=== PATIENT | female | born 1935 | race Caucasian/White ===

== ENCOUNTER 2021-09-07 07:50 | Inpatient (IN) ==
[2021-09-07] MEDS ORDERED: cefTRIAXone 1 GM VIAL IV ONE (08:27)
[2021-09-07] MEDS ORDERED: 0.9 % SODIUM CHLORIDE 1,000 ML IV ONE (08:27)
--- NOTE | 2021-09-07 08:27 | Emergency Department Note ---
Altered Mental Status HPI General Chief Complaint: Altered Mental Status Stated Complaint: possible UTI or septic hip Time Seen by Provider: 09/07/21 08:08 Source: EMS Mode of arrival: EMS Limitations: altered mental status and physical limitation History of Present Illness HPI Narrative: Narrative: 86 yo F w/ apparent h/o dementia, HTN, CKD, hypothyroidism p/w ALOC. She was sent here from [facility] w/ minimal report. It seems that her baseline is maybe mild confusion but o/w functional, but over the past few days she has had decreased responsiveness and decreased PO intake. Staff at the facility noted a wound on her L hip and also suspected a UTI. She was sent here for further evaluation. Pt herself will briefly answer some questions w/ yes/no, but cannot provide any meaningful Hx. Related Data Home Medications Medication Instructions Recorded Confirmed acetaminophen 325 mg tablet 650 mg PO Q4H PRN 09/07/21 09/07/21 amlodipine 5 mg tablet 5 mg PO QDAY 09/07/21 09/07/21 ascorbic acid (vitamin C) 500 mg 500 mg PO BID 09/07/21 09/07/21 tablet bisacodyl 10 mg rectal suppository 10 mg NC QDAY PRN 09/07/21 09/07/21 cranberry fruit 450 mg tablet 450 mg PO BID 09/07/21 09/07/21 (cranberry) dicyclomine 20 mg tablet 20 mg PO BID 09/07/21 09/07/21 diphenhydramine-zinc acetate 2 1 applic TOPICAL BID PRN 09/07/21 09/07/21 %-0.1 % topical solution famotidine 20 mg tablet 20 mg PO QDAY 09/07/21 09/07/21 ferrous sulfate 325 mg (65 mg 325 mg PO TID 09/07/21 09/07/21 iron) tablet galantamine 4 mg tablet 4 mg PO DAILY 09/07/21 09/07/21 hydroxyzine HCl 25 mg tablet 25 mg PO BID 09/07/21 09/07/21 latanoprost 0.005 % eye drops 1 drp OPHTHALMIC (EYE) QPM 09/07/21 09/07/21 levothyroxine 50 mcg tablet 50 mcg PO QDAY 09/07/21 09/07/21 miconazole nitrate 2 % topical 1 applic TOPICAL HS 09/07/21 09/07/21 powder multivitamin with minerals-folic 1 tab PO DAILY 09/07/21 09/07/21 acid 0.4 mg tablet sodium phosphates 19 gram-7 118 ml NC ONCE PRN 09/07/21 09/07/21 gram/118 mL enema (Enema) zinc sulfate 50 mg zinc (220 mg) 50 mg PO DAILY 09/07/21 09/07/21 tablet Allergies Allergy/AdvReac Type Severity Reaction Status Date / Time No Known Drug Allergies Allergy Verified 09/07/21 08:09 Review of Systems ROS ROS Narrative: Narrative: Limitations: ROS unobtainable due to patients medical condition [facility] Narrative Patient History Narrative: Narrative: Per facility records, HTN, hypothyroidism, CKD, dementia. Pt is DNR but not comfort care. Medical/Surgical/Family History All Active Problems (Updated 09/07/21 @ 12:16 by Miki Pinzon MD) Metabolic acidosis (Acute) Hyperkalemia (Acute) Hypernatremia (Acute) Acute kidney injury with acute tubular necrosis (Acute) Acute delirium (Acute) Acute renal failure (ARF) (Acute) Acute hypernatremia (Acute) Acute hyperkalemia (Acute) Acute UTI (Acute) Social History Smoking Status: Unknown if ever smoked Exam Narrative Narrative: Narrative: General Limitations: altered mental status and physical limitation General appearance: Present alert and in no apparent distress Head Head: Present atraumatic and normocephalic Eye Eye: Present normal appearance and PERRL ENT ENT: Present other (does not really follow commands to open mouth and stick out tongue but what I can see shows very dry MM) Neck Neck: Present normal inspection Chest Chest: Present normal inspection and symmetric chest wall rise Respiratory Respiratory: Present normal lung sounds bilaterally; Absent accessory muscle use or decreased breath sounds Cardiovascular Cardiovascular: Present regular rate, normal rhythm, +S1, +S2 and other (2+ B/L DP and radial pulses); Absent systolic murmur or diastolic murmur Adbominal Abdominal: Present soft and normal bowel sounds; Absent distention or tenderness External: Present normal external exam Extremities Extremities: Present other (L hip w/ 4cm diameter skin tear w/ surrounding blanching erythema w/o warmth, TTP. Does keep the LLE held in flexion at the hip and knee, resists attempts to move in any direction. Extremities o/w unremarkable. ) Neurological Neurological: Present alert and other (oriented to person, place, but not year. Responds only briefly and occasionally to questions. Does follow commands to squeeze fingers and wiggle toes B/L. ) Skin Skin: Present warm (WNL), dry and other (hip lesion as noted in extremity section o/w no rashes) Course Vital Signs Vital signs: Vital Signs Temperature 99.2 F H 09/07/21 07:59 Pulse Rate 77 09/07/21 07:59 Respiratory Rate 20 09/07/21 07:59 Blood Pressure 107/59 09/07/21 07:59 Pulse Oximetry (%) 100 09/07/21 07:59 Temperature 99.2 F H 09/07/21 07:59 Pulse Rate 92 H 09/07/21 12:32 Respiratory Rate 16 09/07/21 12:32 Blood Pressure 114/43 09/07/21 12:32 Pulse Oximetry (%) 96 09/07/21 12:32 MDM MDM Narrative Medical decision making narrative: Narrative: 86 yo F w/ apparent h/o dementia, HTN, CKD, p/w ALOC. DDx - CVA, FLEXIBLE SHAFT WINDER infection, sepsis, UTI, septic arthritis, metabolic/electrolyte d/o, endocrine d/o, medication/toxin effect Pt presents w/ confusion but no focal deficits, stable vitals, in NAD. CVA was unlikely and CT head was not required. My main concern was infectious and I started a broad W/U for this. While doing so I started her on IVF and abx. She was clearly dehydrated and thus IVF were required. Her labs did not show a serious leukocytosis or L shift. At time of disposition lactate was still pending for unclear reasons. Her UA was grossly positive and this was c/w her presentation. I did not feel that her hip skin tear was at all likely to represent septic arthritis, and did not feel that FLEXIBLE SHAFT WINDER infection was likely. TSH/T4 were WNL and there was no clear evidence of a medication or toxin effect. The main issue was her CMP, which showed Na 161, K 6.1, BUN 90 and Cr 4.5. This was c/w acute renal failure d/t pre-renal HARRIET. There were no assoc'd EKG changes assoc'd w/ the hyperkalemia. I considered measures such as calcium, D50, insulin, etc but w/ such a mild elevation above 6 and no EKG changes these were not indicated. I d/w Dr Pinzon who felt that dialysis would be indicated if the pt wishes for aggressive measures, and if not agrees w/ plan for IVF and IV abx. He and I had an extensive d/w the pts family at the bedside and they stated that pt would not want HD or other aggressive measures. She was not full comfort care however, she would want IVF and IV abx. Thus we all agreed on admission here and pt was accepted by the hospitalist. Lab Data Result diagrams: 09/07/21 08:20 09/07/21 08:20 Labs: Lab Results 09/07/21 09/07/21 09/07/21 Range/Units 08:20 08:20 09:40 WBC 10.7 (4.5-11.0) K/mcL RBC 3.55 L (3.59-5.38) M/mcL Hgb 10.7 L (11.2-15.7) g/dL Hct 36.0 (34.1-44.9) % POC Hct MCV 101.4 H (80.0-100.0) fL MCH 30.1 (26.0-34.0) pg MCHC 29.7 L (31.0-36.0) g/dL RDW 15.1 H (11.5-14.5) % Plt Count 341 (140-440) K/mcL MPV 9.8 (7.4-10.4) fL Neut % (Auto) 73.1 (38.0-78.0) % Lymph % (Auto) 15.4 L (15.5-49.0) % [place] % (Auto) 5.8 (1.0-12.0) % Eos % (Auto) 5.3 (0.0-7.0) % Baso % (Auto) 0.4 (0.0-2.0) % Lymph # (Auto) 1.65 (1.50-4.80) K/mcL [place] # (Auto) 0.62 (0.10-0.90) K/mcL Eos # (Auto) 0.57 (0.00-0.70) K/mcL Baso # (Auto) 0.04 (0.00-0.30) K/mcL Absolute Neutrophils 7.85 (1.80-8.00) K/mcL POC Sodium Sodium 161 H* (133-145) mmol/L POC Potassium Potassium 6.2 H* (3.3-5.1) mmol/L Chloride 132 H (96-108) mmol/L Carbon Dioxide 17 L (22-30) mmol/L POC Total CO2 Anion Gap 12.0 (8.0-16.0) POC BUN BUN 90 H (8-23) mg/dL Creatinine 4.5 H (0.6-1.1) mg/dL POC Creatinine GFR Calculation 8 Glucose 85 (70-105) mg/dL POC Glucose Calcium 8.8 (8.6-10.4) mg/dL POC WB Ioniz Calcium Total Bilirubin 0.2 (0.1-1.0) mg/dL AST 17 (<32) U/L ALT 11 (<40) U/L Alkaline Phosphatase 150 H (39-117) U/L Total Protein 7.0 (5.9-8.4) gm/dL Albumin 3.3 (3.2-5.2) gm/dL Globulin 3.7 (2.2-3.7) gm/dL Albumin/Globulin Ratio 0.9 L (1.0-2.3) TSH 1.00 (0.27-5.01) uIU/mL Thyroxine (T4) 4.5 L (5.0-12.0) ug/dl Urine Color Urine Appearance (Clear) Urine pH (5.0-9.0) Ur Specific [place] (1.000-1.035) Urine Protein (Negative) mg/dL Urine Glucose (UA) (Negative) mg/dL Urine Ketones (Negative) mg/dL Urine Occult Blood (Negative) mg/dL Urine Nitrate (Negative) Urine Bilirubin (Negative) mg/dL Urine Urobilinogen mg/dL Ur Leukocyte Esterase (Negative) /uL Urine RBC (0-3) /hpf Urine WBC (0-4) /hpf Ur Squamous Epith Cells (0-4) /hpf Ur Transition Epith Cell (0-2) /hpf Urine Bacteria (0) /hpf Urine Mucus (None) /hpf Ur Culture Indicated? Urine Opiates Screen None detected Ur Opiates Confirm TNP Ur Oxycodone Screen None detected Urine Methadone Screen None detected Ur Methadone Confirm TNP Ur Barbiturates Screen None detected Ur Barbiturate Confirm TNP Ur Phencyclidine Scrn None detected Urine PCP Confirm TNP Ur Amphetamines Screen None detected U Amphetamines Confirm TNP U Benzodiazepines Scrn None detected U Benzodiazepine Confm TNP Urine Cocaine Screen None detected Urine Cocaine Confirm TNP U Cannabinoids Confirm TNP U Marijuana (THC) Screen None detected 09/07/21 09/07/21 Range/Units 09:40 12:24 WBC (4.5-11.0) K/mcL RBC (3.59-5.38) M/mcL Hgb (11.2-15.7) g/dL Hct (34.1-44.9) % POC Hct TNP MCV (80.0-100.0) fL MCH (26.0-34.0) pg MCHC (31.0-36.0) g/dL RDW (11.5-14.5) % Plt Count (140-440) K/mcL MPV (7.4-10.4) fL Neut % (Auto) (38.0-78.0) % Lymph % (Auto) (15.5-49.0) % [place] % (Auto) (1.0-12.0) % Eos % (Auto) (0.0-7.0) % Baso % (Auto) (0.0-2.0) % Lymph # (Auto) (1.50-4.80) K/mcL [place] # (Auto) (0.10-0.90) K/mcL Eos # (Auto) (0.00-0.70) K/mcL Baso # (Auto) (0.00-0.30) K/mcL Absolute Neutrophils (1.80-8.00) K/mcL POC Sodium TNP Sodium (133-145) mmol/L POC Potassium TNP Potassium (3.3-5.1) mmol/L Chloride (96-108) mmol/L Carbon Dioxide (22-30) mmol/L POC Total CO2 TNP Anion Gap (8.0-16.0) POC BUN TNP BUN (8-23) mg/dL Creatinine (0.6-1.1) mg/dL POC Creatinine TNP GFR Calculation Glucose (70-105) mg/dL POC Glucose TNP Calcium (8.6-10.4) mg/dL POC WB Ioniz Calcium TNP Total Bilirubin (0.1-1.0) mg/dL AST (<32) U/L ALT (<40) U/L Alkaline Phosphatase (39-117) U/L Total Protein (5.9-8.4) gm/dL Albumin (3.2-5.2) gm/dL Globulin (2.2-3.7) gm/dL Albumin/Globulin Ratio (1.0-2.3) TSH (0.27-5.01) uIU/mL Thyroxine (T4) (5.0-12.0) ug/dl Urine Color Yellow Urine Appearance Turbid A (Clear) Urine pH 7.0 (5.0-9.0) Ur Specific [place] 1.013 (1.000-1.035) Urine Protein 100 A (Negative) mg/dL Urine Glucose (UA) Negative (Negative) mg/dL Urine Ketones Negative (Negative) mg/dL Urine Occult Blood 0.03 (Negative) mg/dL Urine Nitrate Negative (Negative) Urine Bilirubin Negative (Negative) mg/dL Urine Urobilinogen Negative mg/dL Ur Leukocyte Esterase 500 A (Negative) /uL Urine RBC 89 H (0-3) /hpf Urine WBC > 182 H (0-4) /hpf Ur Squamous Epith Cells 0 (0-4) /hpf Ur Transition Epith Cell 1 (0-2) /hpf Urine Bacteria Few A (0) /hpf Urine Mucus Few A (None) /hpf Ur Culture Indicated? yes Urine Opiates Screen Ur Opiates Confirm Ur Oxycodone Screen Urine Methadone Screen Ur Methadone Confirm Ur Barbiturates Screen Ur Barbiturate Confirm Ur Phencyclidine Scrn Urine PCP Confirm Ur Amphetamines Screen U Amphetamines Confirm U Benzodiazepines Scrn U Benzodiazepine Confm Urine Cocaine Screen Urine Cocaine Confirm U Cannabinoids Confirm U Marijuana (THC) Screen ED POC Tests ED POC Tests: SUNG - SARS Antigen Negative EKG Data EKG #1: EKG attestation: Yes I reviewed and interpreted this EKG. EKG results narrative: Sinus rate of 78 Normal NC, QRS, QT/QTc intervals No STEMI, DeWinters, Wellens CC TIME Critical Care Time Attestation: Approximately 35 minutes of critical care time was used in order to assess and manage the high probability of imminent or life threatening deterioration to CVS, renal systems which required my highest level of preparedness and interventions with frequent patient assessments. This time is excluding time spent on separately billable procedures. Discharge Plan Patient/Caregiver Discharge Instructions Pt seen by HEATING UNIT MECHANIC/PA only: No Clinical Impression: Acute delirium, Acute renal failure (ARF), Acute hypernatremia, Acute hyperkalemia, Acute UTI Patient Disposition: Xfer As Inpt ([facility]) Condition: Serious Follow up with: Gianluca Rivera [Primary Care Provider] - Prescriptions: No Action latanoprost 0.005 % Drops 1 drp OPHTHALMIC (EYE) QPM 0RF acetaminophen 325 mg Tablet 650 mg PO Q4H PRN (Reason: Pain) 0RF miconazole nitrate 2 % Powder 1 applic TOPICAL HS 0RF galantamine 4 mg Tablet 4 mg PO DAILY 0RF Rx Instructions: administer with AM and PM meals amlodipine 5 mg Tablet 5 mg PO QDAY 0RF zinc sulfate 50 mg zinc (220 mg) Tablet 50 mg PO DAILY 0RF famotidine 20 mg Tablet 20 mg PO QDAY 0RF ascorbic acid (vitamin C) 500 mg Tablet 500 mg PO BID 0RF dicyclomine 20 mg Tablet 20 mg PO BID 0RF levothyroxine 50 mcg Tablet 50 mcg PO QDAY 0RF bisacodyl 10 mg Suppository 10 mg NC QDAY PRN (Reason: Constipation) 0RF ferrous sulfate 325 mg (65 mg iron) Tablet 325 mg PO TID 0RF Enema 19-7 gram/118 mL Enema 118 ml NC ONCE PRN (Reason: Constipation) 0RF hydroxyzine HCl 25 mg Tablet 25 mg PO BID 0RF Benadryl Itch Relief 2-0.1 % Solution 1 applic TOPICAL BID PRN (Reason: Itching) 0RF multivit with min-folic acid [Adult One Daily Multivitamin] 0.4 mg Tablet 1 tab PO DAILY 0RF cranberry 450 mg Tablet 450 mg PO BID 0RF Rx Instructions: administer with a meal
[2021-09-07 09:17] LABS: Basophils # (Auto) 0.04 K/mcL (0.00-0.30); Basophils % (Auto) 0.4 % (0.0-2.0); Eosinophils # (Auto) 0.57 K/mcL (0.00-0.70); Eosinophils % (Auto) 5.3 % (0.0-7.0); Hemoglobin 10.7 g/dL (11.2-15.7); Lymphocytes # (Auto) 1.65 K/mcL (1.50-4.80); Lymphocytes % (Auto) 15.4 % (15.5-49.0); Mean Cell Volume 101.4 fL (80.0-100.0); Mean Corpuscular HGB Conc 29.7 g/dL (31.0-36.0); Mean Platelet Volume 9.8 fL (7.4-10.4); Monocytes # (Auto) 0.62 K/mcL (0.10-0.90); Monocytes % (Auto) 5.8 % (1.0-12.0); Neutrophils % (Auto) 73.1 % (38.0-78.0); Platelet Count 341 K/mcL (140-440); RBC 3.55 M/mcL (3.59-5.38); Red Cell Distribution Width 15.1 % (11.5-14.5); WBC 10.7 K/mcL (4.5-11.0)
[2021-09-07 09:54] LABS: T4 (Thyroxine) 4.5 ug/dl (5.0-12.0)
[2021-09-07 10:01] LABS: ALT/SGPT 11 U/L (<40); AST/SGOT 17 U/L (<32); Albumin 3.3 gm/dL (3.2-5.2); Albumin/Globulin Ratio 0.9 (1.0-2.3); Alkaline Phosphatase 150 U/L (39-117); Bilirubin,Total 0.2 mg/dL (0.1-1.0); Blood Urea Nitrogen 90 mg/dL (8-23); Calcium 8.8 mg/dL (8.6-10.4); Carbon Dioxide 17 mmol/L (22-30); Chloride 132 mmol/L (96-108); Globulin 3.7 gm/dL (2.2-3.7); Glomerular Filtration Rate 8; Glucose 85 mg/dL (70-105)
[2021-09-07 10:34] LABS: Appearance,Urine TURBID (Clear); Bacteria,Urine FEW /hpf (0); Bilirubin,Urine Negative (Negative); Color,Urine YELLOW; Culture Indicated,Urine yes; Glucose,Urine (UA) Negative (Negative); Ketones,Urine Negative (Negative); Leukocyte Esterase,Urine 500 /uL (Negative); Mucus,Urine FEW /hpf; Nitrate,Urine Negative (Negative); Protein,Urine 100 mg/dL (Negative); Specific Gravity,Urine 1.013 (1.000-1.035); Urine Blood 0.03 mg/dL (Negative); Urine RBC 89 /hpf (0-3); Urine Squamous Epithelial Cell 0 /hpf (0-4); Urine Transitional Epi Cells 1 /hpf (0-2); Urine WBC > 182 /hpf (0-4); Urobilinogen,Urine Negative
[2021-09-07 11:24] LABS: Amphetamine Screen,Urine None detected; Barbiturate Screen,Urine None detected; Benzodiazepines Screen,Urine None detected; Cannabinoid Screen,Urine None detected; Cocaine Screen,Urine None detected; Opiate Screen,Urine None detected; Oxycodone, Urine Screen None detected; Phencyclidine Screen,Urine None detected
[2021-09-07] MEDS ORDERED: DEXTROSE 5% IN WATER 1,000 ML IV SCH ×2 (12:00→17:01)
--- NOTE | 2021-09-07 12:12 | Internal Med History&Physical ---
HPI History of Present Illness Patient information: Note initiated : 09/07/21 at 12:05 pm Service Date, if different from initiated Date: [] Patient: Marie Pinon a 86 y/o F admitted on for Possible UTI or Septic Hip. Chief Complaint: [] History of present illness: Ms. Pinon is a 86 year old F Patient with a history of Alzheimer's dementia advanced brought in from [facility]. History is obtained from chart as unable to gather history from patient given her dementia and current state. She was brought in for decreased level of consciousness over the past few days. In the ED she was worked up she is found to have a sodium of 161 and potassium of 6.2 without any EKG changes. Her very hyperchloremic. BUN is 98 creatinine 4.5. He also was diagnosed with a UTI. Case discussed with talent acquisition sourcer regarding her case is stated could be possible that she could need dialysis. This was discussed with family who stated patient is a DNR and that she would not want dialysis. Patient will be treated at [facility] and if she declines her renal function does not improve likely transition to comfort care. Review of Systems: Unable obtain due to patient's advanced Alzheimer's [facility] All Active Problems (Updated 09/07/21 @ 12:16 by Miki Pinzon MD) Metabolic acidosis (Acute) Hyperkalemia (Acute) Hypernatremia (Acute) Acute kidney injury with acute tubular necrosis (Acute) Acute delirium (Acute) Acute renal failure (ARF) (Acute) Acute hypernatremia (Acute) Acute hyperkalemia (Acute) Acute UTI (Acute) MEDS/ALLERGIES Home Medications and Allergies Allergies Allergy/AdvReac Type Severity Reaction Status Date / Time No Known Drug Allergies Allergy Verified 09/07/21 08:09 EXAM Constitutional Vitals: Temp Pulse Resp BP Pulse Ox 99.2 F H 80 17 112/67 97 09/07/21 07:59 09/07/21 11:31 09/07/21 11:31 09/07/21 11:31 09/07/21 11:31 Exam: General: Alert, Awake, No acute Distress Eyes/N/T: EOMI, PERRL, dry MM Head/Neck: neck supple, normocephalic atraumatic CV: RRR, No murmurs, normal s1/s2 Pulm: Clear b/l, no wheezing/rhonchi/rales Abd: soft, nontender, +BS x4 Ext: no clubbing/cyanosis/edema Neuro: Alert, moves all extremities, does not follow commands thoroughly obtain neuro exam. Skin: warm/dry DATA Data Completed and Pending Labs: Labs from last 24 hours 09/07/21 09/07/21 09/07/21 09:40 09:40 08:20 WBC RBC Hgb Hct MCV MCH MCHC RDW Plt Count MPV Neut % (Auto) Lymph % (Auto) [place] % (Auto) Eos % (Auto) Baso % (Auto) Lymph # (Auto) [place] # (Auto) Eos # (Auto) Baso # (Auto) Absolute Neutrophils VBG Lactic Acid Pending Sodium 161 H* Potassium 6.2 H* Chloride 132 H Carbon Dioxide 17 L Anion Gap 12.0 BUN 90 H Creatinine 4.5 H GFR Calculation 8 Glucose 85 Calcium 8.8 Total Bilirubin 0.2 AST 17 ALT 11 Alkaline Phosphatase 150 H Total Protein 7.0 Albumin 3.3 Globulin 3.7 Albumin/Globulin Ratio 0.9 L TSH 1.00 Thyroxine (T4) 4.5 L Urine Color Yellow Urine Appearance Turbid A Urine pH 7.0 Ur Specific [place] 1.013 Urine Protein 100 A Urine Glucose (UA) Negative Urine Ketones Negative Urine Occult Blood 0.03 Urine Nitrate Negative Urine Bilirubin Negative Urine Urobilinogen Negative Ur Leukocyte Esterase 500 A Urine RBC 89 H Urine WBC > 182 H Ur Squamous Epith Cells 0 Ur Transition Epith Cell 1 Urine Bacteria Few A Urine Mucus Few A Ur Culture Indicated? yes Urine Opiates Screen None detected Ur Opiates Confirm TNP Ur Oxycodone Screen None detected Urine Methadone Screen None detected Ur Methadone Confirm TNP Ur Barbiturates Screen None detected Ur Barbiturate Confirm TNP Ur Phencyclidine Scrn None detected Urine PCP Confirm TNP Ur Amphetamines Screen None detected U Amphetamines Confirm TNP U Benzodiazepines Scrn None detected U Benzodiazepine Confm TNP Urine Cocaine Screen None detected Urine Cocaine Confirm TNP U Cannabinoids Confirm TNP U Marijuana (THC) Screen None detected 09/07/21 08:20 WBC 10.7 RBC 3.55 L Hgb 10.7 L Hct 36.0 MCV 101.4 H MCH 30.1 MCHC 29.7 L RDW 15.1 H Plt Count 341 MPV 9.8 Neut % (Auto) 73.1 Lymph % (Auto) 15.4 L [place] % (Auto) 5.8 Eos % (Auto) 5.3 Baso % (Auto) 0.4 Lymph # (Auto) 1.65 [place] # (Auto) 0.62 Eos # (Auto) 0.57 Baso # (Auto) 0.04 Absolute Neutrophils 7.85 VBG Lactic Acid Sodium Potassium Chloride Carbon Dioxide Anion Gap BUN Creatinine GFR Calculation Glucose Calcium Total Bilirubin AST ALT Alkaline Phosphatase Total Protein Albumin Globulin Albumin/Globulin Ratio TSH Thyroxine (T4) Urine Color Urine Appearance Urine pH Ur Specific [place] Urine Protein Urine Glucose (UA) Urine Ketones Urine Occult Blood Urine Nitrate Urine Bilirubin Urine Urobilinogen Ur Leukocyte Esterase Urine RBC Urine WBC Ur Squamous Epith Cells Ur Transition Epith Cell Urine Bacteria Urine Mucus Ur Culture Indicated? Urine Opiates Screen Ur Opiates Confirm Ur Oxycodone Screen Urine Methadone Screen Ur Methadone Confirm Ur Barbiturates Screen Ur Barbiturate Confirm Ur Phencyclidine Scrn Urine PCP Confirm Ur Amphetamines Screen U Amphetamines Confirm U Benzodiazepines Scrn U Benzodiazepine Confm Urine Cocaine Screen Urine Cocaine Confirm U Cannabinoids Confirm U Marijuana (THC) Screen A/P Narrative A/P Narrative: A: *Dehydration/hypernatremia(likely chronic,>48hrs)/hyperchloremia: -water deficit 2.7 *Volume depletion: *Hyperkalemia *HARRIET on CKD IV: *UTI: *Encephalopathy: 2/2 above, multifactorial superimposed on underlying dementia *Alzheimer's dementia, advanced: *Anemia, chronic: *HTN: *Hypothyroidism: *GERD: *Goals of care: P: -D5W, goal correction 10mEq per 24hrs -serial chemistry -monitor UOP -f/u renal fxn -Rocephin pending - -PT/OT -Medication reconciliation -ppx: Heparin DNR Time Spent With Patient Time: Total time spent is greater than 50% in coordination of care (as documented) at patient's floor/unit and/or counseling patient:
--- NOTE | 2021-09-07 12:21 | Nephrology Consult Note ---
HPI Data of Consult Patient: new to practice Consult date: 09/07/21 Requesting physician: Mejia Pierre Primary Care Provider: Gianluca Rivera Consult Narrative Chief complaint: Altered mental status Reason for consult: Acute kidney injury History of present illness: Marie Pinon is a 86-year-old female with dementia, hypertension, chronic kidney disease, hypothyroidism presented to [facility] ED from [facility] on 09/07/20 for worsening mental status. Baseline serum creatinine: Not available. Nephrology consultation was requested for acute kidney injury. cc:: CC: Review of Systems ROS unobtainable: due to mental status PFSH PFSH All Active Problems (Updated 09/07/21 @ 12:16 by Miki Pinzon MD) Metabolic acidosis (Acute) Hyperkalemia (Acute) Hypernatremia (Acute) Acute kidney injury with acute tubular necrosis (Acute) Acute delirium (Acute) Acute renal failure (ARF) (Acute) Acute hypernatremia (Acute) Acute hyperkalemia (Acute) Acute UTI (Acute) MEDS/ALLERGIES Home Medications and Allergies Home Medications Medication Instructions Recorded Confirmed Type acetaminophen 325 mg tablet 650 mg PO Q4H PRN 09/07/21 09/07/21 History amlodipine 5 mg tablet 5 mg PO QDAY 09/07/21 09/07/21 History ascorbic acid (vitamin C) 500 mg 500 mg PO BID 09/07/21 09/07/21 History tablet bisacodyl 10 mg rectal suppository 10 mg VA QDAY PRN 09/07/21 09/07/21 History cranberry fruit 450 mg tablet 450 mg PO BID 09/07/21 09/07/21 History (cranberry) dicyclomine 20 mg tablet 20 mg PO BID 09/07/21 09/07/21 History diphenhydramine-zinc acetate 2 1 applic TOPICAL BID PRN 09/07/21 09/07/21 History %-0.1 % topical solution famotidine 20 mg tablet 20 mg PO QDAY 09/07/21 09/07/21 History ferrous sulfate 325 mg (65 mg 325 mg PO TID 09/07/21 09/07/21 History iron) tablet galantamine 4 mg tablet 4 mg PO DAILY 09/07/21 09/07/21 History hydroxyzine HCl 25 mg tablet 25 mg PO BID 09/07/21 09/07/21 History latanoprost 0.005 % eye drops 1 drp OPHTHALMIC (EYE) QPM 09/07/21 09/07/21 History levothyroxine 50 mcg tablet 50 mcg PO QDAY 09/07/21 09/07/21 History miconazole nitrate 2 % topical 1 applic TOPICAL HS 09/07/21 09/07/21 History powder multivitamin with minerals-folic 1 tab PO DAILY 09/07/21 09/07/21 History acid 0.4 mg tablet sodium phosphates 19 gram-7 118 ml VA ONCE PRN 09/07/21 09/07/21 History gram/118 mL enema (Enema) zinc sulfate 50 mg zinc (220 mg) 50 mg PO DAILY 09/07/21 09/07/21 History tablet Allergies Allergy/AdvReac Type Severity Reaction Status Date / Time No Known Drug Allergies Allergy Verified 09/07/21 08:09 Physical Examination Vital Signs Vital signs: Temp Pulse Resp BP Pulse Ox 99.2 F H 80 17 112/67 97 09/07/21 07:59 09/07/21 11:31 09/07/21 11:31 09/07/21 11:31 09/07/21 11:31 General Appearance General appearance: chronically ill, fatigue and frail EENT EENT: mucous membranes dry Neck Neck: no JVD Respiratory Respiratory: clear Cardiovascular Cardiology: no edema and regular rhythm Gastrointestinal Gastrointestinal: no tenderness Integumentary Integumentary: cool/clammy Neurologic Neurologic: confused Results Lab Results Result Diagrams: 09/07/21 08:20 09/07/21 08:20 Lab results: Most recent lab results Calcium 8.8 mg/dL (8.6-10.4) 09/07/21 08:20 A/P Assessment and plan (1) Acute kidney injury with acute tubular necrosis: Assessment and plan: Marie Pinon is a 86-year-old female with dementia, hypertension, chronic kidney disease, hypothyroidism presented to [facility] ED from [facility] on 09/07/20 for worsening mental status. Baseline serum creatinine: Not available. Nephrology consultation was requested for acute kidney injury. Acute kidney injury, likely acute tubular necrosis associated with prolonged dehydration and acute cystitis with initial hyperkalemia, metabolic acidosis and hypernatremia, present on arrival. Hypernatremia, onset likely more than 48 hours, severe. Work up: Urinalysis on 09/07/20: Yellow, turbid, pH 7.0, SG 1.013, protein 100, blood 0.03, leukocyte esterase 500, urine WBC >182. Treatment: 0.5 L Normal Saline administered in ED. Prognosis is poor. This has been discussed with the family. Recommendations/Plan: Acute hemodialysis has been discussed with his son. This requires transfer to a hospital with inpatient hemodialysis. His son and granddaughter did not want hemodialysis, transfer or invasive procedures. IV fluids and antibiotics will be administered. Comfort care will be considered based on the progress. The goal of water repletion in patients with chronic hypernatremia is to lower the serum sodium by approximately 10 mEq/L in 24 hours but to avoid correcting the serum sodium by more than 12 mEq/L in 24 hours Status: Acute (2) Hypernatremia: Status: Acute (3) Hyperkalemia: Status: Acute (4) Metabolic acidosis: Status: Acute Time Spent With Patient Time: Total time spent is greater than 50% in coordination of care (as documented) at patient's floor/unit and/or counseling patient:
--- NOTE | 2021-09-07 12:49 | EKG ---
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
[2021-09-07 13:14] LABS: POC Blood Urea Nitrogen 90 mg/dL (6-20); POC CO2 19 mmol/L (22-30); POC Calcium, Ionized 1.19 mmEq/L (1.16-1.32); POC Chloride 139 mEq/L (96-108); POC Creatinine 4.8 mg/dL (0.6-1.2); POC Glucose, Random 88 mg/dL (70-105); POC Hematocrit 29 % (36-48); POC Potassium 5.6 mEql/L (3.3-5.1); POC Sodium 166 mEq/L (133-145)
[2021-09-07 13:32] LABS: Blood Urea Nitrogen 77 mg/dL (8-23); Calcium 7.4 mg/dL (8.6-10.4); Carbon Dioxide 15 mmol/L (22-30); Chloride 133 mmol/L (96-108); Glomerular Filtration Rate 9; Glucose 84 mg/dL (70-105)
[2021-09-07 14:04] LABS: Blood Urea Nitrogen 82 mg/dL (8-23); Calcium 7.8 mg/dL (8.6-10.4); Carbon Dioxide 17 mmol/L (22-30); Chloride 134 mmol/L (96-108); Glomerular Filtration Rate 9; Glucose 89 mg/dL (70-105)
[2021-09-07] MEDS ORDERED: POTASSIUM CHLORIDE 20 MEQ TABLET PO PRN ×2 (15:23)
[2021-09-07] MEDS ORDERED: MAGNESIUM SULFATE 2 GM/50 ML BAG IV PRN (15:23)
[2021-09-07] MEDS ORDERED: IPRATROPIUM/ALBUTEROL 3 ML AMPUL.NEB NEB PRN (15:23)
[2021-09-07] MEDS ORDERED: cefTRIAXone 1 GM in DEXTROSE 5% IN WATER 50 ML IV SCH (15:23)
[2021-09-07] MEDS ORDERED: POTASSIUM CHLORIDE 40 MEQ in DEXTROSE 5% IN WATER 500 ML IV PRN (15:23)
[2021-09-07] MEDS ORDERED: POLYETHYLENE GLYCOL 3350 17 GM PACKET PO PRN (15:23)
[2021-09-07] MEDS ORDERED: ONDANSETRON 4 MG/2 ML VIAL IV PRN (15:23)
[2021-09-07] MEDS ORDERED: SENNOSIDES 1 TABLET PO PRN (15:23)
[2021-09-07] MEDS: 0.9 % SODIUM CHLORIDE 10 ML SYRINGE IV SCH ×2 (15:48→21:33)
[2021-09-07 16:40] LABS: POC Blood Urea Nitrogen 91 mg/dL (6-20); POC CO2 20 mmol/L (22-30); POC Chloride 138 mEq/L (96-108); POC Creatinine 4.8 mg/dL (0.6-1.2); POC Glucose, Random 96 mg/dL (70-105); POC Hematocrit 32 % (36-48); POC Potassium 5.9 mEql/L (3.3-5.1); POC Sodium 166 mEq/L (133-145)
[2021-09-07] MEDS ORDERED: DEXTROSE 50% 50 ML VIAL IV ONE (17:05)
[2021-09-07] MEDS ORDERED: INSULIN REGULAR, HUMAN 1 UNIT/0.01 ML UNIT IV ONE (17:06)
[2021-09-07] MEDS ORDERED: DEXTROSE 5% IN WATER 250 ML IV SCH ×2 (17:15→20:54)
[2021-09-07] MEDS ORDERED: DEXTROSE 50% 50 ML SYRINGE IV ONE (17:30)
[2021-09-07 20:25] LABS: POC Blood Urea Nitrogen 87 mg/dL (6-20); POC CO2 18 mmol/L (22-30); POC Calcium, Ionized 1.21 mmEq/L (1.16-1.32); POC Chloride 136 mEq/L (96-108); POC Creatinine 4.7 mg/dL (0.6-1.2); POC Glucose, Random 81 mg/dL (70-105); POC Hematocrit 28 % (36-48); POC Potassium 5.2 mEql/L (3.3-5.1); POC Sodium 164 mEq/L (133-145)
[2021-09-07] MEDS ORDERED: ALBUMIN HUMAN 25 GM/100 ML BAG IV ONE (20:54)
[2021-09-07] MEDS ORDERED: LACTATED RINGERS 250 ML IV SCH (21:00)
[2021-09-07] MEDS: DOCUSATE SODIUM 100 MG CAPSULE PO SCH (21:32)
[2021-09-07] MEDS: LATANOPROST OPHTH DROPS 2.5ML BOTTLE OU SCH (21:32)
[2021-09-07] MEDS: HEPARIN 5,000 UNIT/ML VIAL SQ SCH (21:36)
[2021-09-07] MEDS: FAMOTIDINE/PF 20 MG/2 ML VIAL IV SCH (21:36)
[2021-09-07] MEDS: DEXTROSE 5% IN WATER 1,000 ML IV SCH (23:00)
[2021-09-08 00:31] LABS: POC Calcium, Ionized 1.2 mmEq/L (1.16-1.32); POC Creatinine 4.5 mg/dL (0.6-1.2); POC Potassium 5.1 mEql/L (3.3-5.1)
[2021-09-08 04:31] LABS: POC Calcium, Ionized 1.2 mmEq/L (1.16-1.32); POC Creatinine 4.4 mg/dL (0.6-1.2); POC Potassium 5.2 mEql/L (3.3-5.1)
[2021-09-08 05:15] LABS: Basophils # (Auto) 0.02 K/mcL (0.00-0.30); Basophils % (Auto) 0.2 % (0.0-2.0); Eosinophils % (Auto) 6.6 % (0.0-7.0); Hematocrit 28.9 % (34.1-44.9); Hemoglobin 8.8 g/dL (11.2-15.7); Lymphocytes # (Auto) 1.65 K/mcL (1.50-4.80); Lymphocytes % (Auto) 18.1 % (15.5-49.0); Mean Corpuscular HGB Conc 30.4 g/dL (31.0-36.0); Mean Platelet Volume 9.7 fL (7.4-10.4); Monocytes # (Auto) 0.47 K/mcL (0.10-0.90); Monocytes % (Auto) 5.2 % (1.0-12.0); Neutrophils % (Auto) 69.9 % (38.0-78.0); Platelet Count 264 K/mcL (140-440); RBC 2.86 M/mcL (3.59-5.38); WBC 9.1 K/mcL (4.5-11.0)
[2021-09-08 05:36] LABS: ALT/SGPT 7 U/L (<40); AST/SGOT 19 U/L (<32); Albumin/Globulin Ratio 1.1 (1.0-2.3); Alkaline Phosphatase 110 U/L (39-117); Bilirubin,Direct < 0.2 mg/dL (0-0.3); Bilirubin,Total 0.2 mg/dL (0.1-1.0); Blood Urea Nitrogen 71 mg/dL (8-23); Calcium 7.9 mg/dL (8.6-10.4); Carbon Dioxide 16 mmol/L (22-30); Chloride 126 mmol/L (96-108); Globulin 2.7 gm/dL (2.2-3.7); Glomerular Filtration Rate 10; Glucose 97 mg/dL (70-105); Lactate Dehydrogenase 269 U/L (135-225); Triglycerides 118 mg/dL (<150); Uric Acid 9.4 mg/dL (2.5-8.0)
[2021-09-08] MEDS: 0.9 % SODIUM CHLORIDE 10 ML SYRINGE IV SCH ×3 (06:05→20:19)
--- NOTE | 2021-09-08 06:48 | Nephrology Progress Note ---
SUBJECTIVE Subjective Patient information: Note initiated : 09/08/21 at 6:45 am Patient: Marie Pinon 86 y/o F admitted on 09/07/21 for Possible UTI or Septic Hip. Chief Complaint: Confused Pertinent ROS: Confused No fluid oveload Constitutional Vitals: Vital Signs Temp Pulse Resp BP Pulse Ox 98.9 F 95 H 20 109/50 95 09/08/21 04:00 09/07/21 15:30 09/08/21 06:01 09/08/21 06:01 09/08/21 06:01 Period Temp Pulse Resp BP Sys/Tom Pulse Ox Last 24 Hr 98.7 F-99.4 F 39-113 14-25 91-140/24-122 88-100 Intake and Output 09/07/21 09/08/21 09/08/21 21:59 05:59 13:59 Intake Total 1138 1100 Output Total 450 350 Balance 688 750 Weight 120 lb 3.2 oz Intake & Output: Intake & Output 09/07/21 09/08/21 09/08/21 21:59 05:59 13:59 Intake Total 1138 1100 Output Total 450 350 Balance 688 750 Weight 120 lb 3.2 oz Intake: IV 1138 1100 Dextrose 5% in Water 1,000 ml @ 888 1000 100 mls/hr IV .Q10H [facility] Rx#: [id number] Lactated Ringers 250 ml @ Wide 250 Open IV .Q0M [facility] Rx#:[id number] Output: Urine Catheter Amount 450 350 Other: Urine Appearance Clear Cloudy Uretheral (Enriquez) Cloudy Urine Color Pale Bright Yellow Uretheral (Enriquez) Bright Yellow Urine Odor Normal General appearance: no acute distress Head Head exam: Present normal inspection Eye Eye exam: Present normal appearance ENT ENT exam: Present mucous membranes moist Respiratory Respiratory exam: Absent respiratory distress Cardiovascular Cardiovascular exam: Present normal rate and rhythm GI/Abdominal GI/Abdominal exam: Present soft; Absent tenderness Extremities Exam Extremities exam: Absent joint swelling or pedal edema Neurological Exam Neurological exam: Present alert and altered Skin Skin exam: Present warm; Absent rash A/P Assessment and plan (1) Acute kidney injury with acute tubular necrosis: Assessment and plan: Marie Pinon is a 86-year-old female with dementia, hypertension, chronic kidney disease, hypothyroidism presented to [facility] ED from [facility] on 09/07/20 for worsening mental status. Baseline serum creatinine: Not available. Nephrology consultation was requested for acute kidney injury. Acute kidney injury, likely acute tubular necrosis associated with prolonged dehydration and acute cystitis with initial hyperkalemia, metabolic acidosis and hypernatremia, present on arrival, improving. Hypernatremia, onset likely more than 48 hours, severe, improving. Work up: Urinalysis on 09/07/20: Yellow, turbid, pH 7.0, SG 1.013, protein 100, blood 0.03, leukocyte esterase 500, urine WBC >182. Treatment: NS 1000 ml, D5W 1800 ml, LR 250 ml in the past 24 hours. Progress: Serum creatinine decreased from 4.5 to 3.8 in the past 24 hours. Serum sodium decreased from 161 to 154 in the past 24 hours. Urine output: 800 ml reported in the past 24 hours. Metabolic acidosis, worse. Hyperkalemia, improved. Fluid status: I/O: +2.4 L No uremic symptoms. Prognosis is poor. This has been discussed with the family. Discussion: Acute hemodialysis has been discussed with his son. This requires transfer to a hospital with inpatient hemodialysis. His son and granddaughter did not want h emodialysis, transfer or invasive procedures. IV fluids and antibiotics will be administered. Comfort care will be considered based on the progress. Recommendations/Plan: The goal of water repletion in patients with chronic hypernatremia is to lower the serum sodium by approximately 10 mEq/L in 24 hours but to avoid correcting the serum sodium by more than 12 mEq/L in 24 hours Status: Acute (2) Hypernatremia: Status: Acute (3) Hyperkalemia: Status: Acute (4) Metabolic acidosis: Status: Acute Time Spent With Patient Time: Total time spent is greater than 50% in coordination of care (as documented) at patient's floor/unit and/or counseling patient:
--- NOTE | 2021-09-08 07:29 | Internal Med Progress Note ---
SUBJECTIVE Subjective Patient information: Note initiated : 09/08/21 at 7:23 am Service Date, if different from initiated Date: [] Patient: Marie Pinon 86 y/o F admitted on 09/07/21 for Possible UTI or Septic Hip. Chief Complaint: [] Interval history: History of present illness: Ms. Pinon is a 86 year old F Patient with a history of Alzheimer's dementia advanced brought in from [facility]. History is obtained from chart as unable to gather history from patient given her dementia and current state. She was brought in for decreased level of consciousness over the past few days. In the ED she was worked up she is found to have a sodium of 161 and potassium of 6.2 without any EKG changes. Her very hyperchloremic. BUN is 98 creatinine 4.5. He also was diagnosed with a UTI. 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 This was discussed with family who stated patient is a DNR and that she would not want dialysis. Patient will be treated at [facility] and if she declines her renal function does not improve likely transition to comfort care. 09/08 Sodium coming down appropriately. Mentation improved and that she is alert but pleasantly confused and I suspect at baseline. Review of Systems: Unable to gather given advanced dementia Constitutional Vitals: Vital Signs Temp Pulse Resp BP Pulse Ox 98.9 F 95 H 20 117/73 95 09/08/21 04:00 09/07/21 15:30 09/08/21 07:07 09/08/21 07:01 09/08/21 07:07 Period Temp Pulse Resp BP Sys/Tom Pulse Ox Last 24 Hr 98.7 F-99.4 F 39-113 14-25 91-140/24-122 88-100 Intake and Output 09/07/21 09/08/21 09/08/21 21:59 05:59 13:59 Intake Total 1138 1100 Output Total 450 350 Balance 688 750 Weight 54.522 kg Intake & Output: Intake & Output 09/07/21 09/08/21 09/08/21 21:59 05:59 13:59 Intake Total 1138 1100 Output Total 450 350 Balance 688 750 Weight 54.522 kg Intake: IV 1138 1100 Dextrose 5% in Water 1,000 ml @ 888 1000 100 mls/hr IV .Q10H [facility] Rx#: [id number] Lactated Ringers 250 ml @ Wide 250 Open IV .Q0M [facility] Rx#:[id number] Output: Urine Catheter Amount 450 350 Other: Urine Appearance Clear Cloudy Uretheral (Enriquez) Cloudy Urine Color Pale Bright Yellow Uretheral (Enriquez) Bright Yellow Urine Odor Normal Exam: General: Alert, Awake, No acute Distress Eyes/N/T: EOMI, Head/Neck: neck supple, CV: RRR, No murmurs, Pulm: Clear b/l, no wheezing/rhonchi/rales Abd: soft, nontender, +BS x4 Ext: no clubbing/cyanosis/edema Neuro: Alert, moves all extremities, advanced dementia Skin: warm/dry OBJ DATA Labs CBC & Chem 7: 09/08/21 04:18 09/08/21 04:18 Labs: Abnormal Lab Results 09/08/21 09/08/21 09/08/21 04:18 04:18 04:18 RBC 2.86 L Hgb 8.8 L Hct 28.9 L POC Hct 26 L MCV 101.0 H MCHC 30.4 L RDW 15.0 H Lymph % (Auto) POC Sodium 158 H Sodium 154 H POC Potassium 5.2 H Potassium 5.7 H POC Chloride 130 H Chloride 126 H Carbon Dioxide 16 L POC Total CO2 18 L POC BUN 80 H BUN 71 H Creatinine 3.8 H POC Creatinine 4.4 H Uric Acid 9.4 H Calcium 7.9 L Magnesium 2.6 H Alkaline Phosphatase Lactate Dehydrogenase 269 H Total Protein 5.7 L Albumin 3.0 L Albumin/Globulin Ratio Thyroxine (T4) Urine Appearance Urine Protein Ur Leukocyte Esterase Urine RBC Urine WBC Urine Bacteria Urine Mucus 09/08/21 09/07/21 09/07/21 00:20 20:00 16:25 RBC Hgb Hct POC Hct 26 L 28 L 32 L MCV MCHC RDW Lymph % (Auto) POC Sodium 161 H 164 H* 166 H* Sodium POC Potassium 5.2 H 5.9 H* Potassium POC Chloride 131 H 136 H 138 H Chloride Carbon Dioxide POC Total CO2 18 L 18 L 20 L POC BUN 82 H 87 H 91 H BUN Creatinine POC Creatinine 4.5 H 4.7 H 4.8 H Uric Acid Calcium Magnesium Alkaline Phosphatase Lactate Dehydrogenase Total Protein Albumin Albumin/Globulin Ratio Thyroxine (T4) Urine Appearance Urine Protein Ur Leukocyte Esterase Urine RBC Urine WBC Urine Bacteria Urine Mucus 09/07/21 09/07/21 09/07/21 12:58 12:24 09:40 RBC Hgb Hct POC Hct 29 L MCV MCHC RDW Lymph % (Auto) POC Sodium 166 H* Sodium 164 H* 161 H* POC Potassium 5.6 H Potassium 5.8 H 5.4 H POC Chloride 139 H Chloride 134 H 133 H Carbon Dioxide 17 L 15 L POC Total CO2 19 L POC BUN 90 H BUN 82 H 77 H Creatinine 4.3 H 4.0 H POC Creatinine 4.8 H Uric Acid Calcium 7.8 L 7.4 L Magnesium Alkaline Phosphatase Lactate Dehydrogenase Total Protein Albumin Albumin/Globulin Ratio Thyroxine (T4) Urine Appearance Turbid A Urine Protein 100 A Ur Leukocyte Esterase 500 A Urine RBC 89 H Urine WBC > 182 H Urine Bacteria Few A Urine Mucus Few A 09/07/21 09/07/21 08:20 08:20 RBC 3.55 L Hgb 10.7 L Hct POC Hct MCV 101.4 H MCHC 29.7 L RDW 15.1 H Lymph % (Auto) 15.4 L POC Sodium Sodium 161 H* POC Potassium Potassium 6.2 H* POC Chloride Chloride 132 H Carbon Dioxide 17 L POC Total CO2 POC BUN BUN 90 H Creatinine 4.5 H POC Creatinine Uric Acid Calcium Magnesium Alkaline Phosphatase 150 H Lactate Dehydrogenase Total Protein Albumin Albumin/Globulin Ratio 0.9 L Thyroxine (T4) 4.5 L Urine Appearance Urine Protein Ur Leukocyte Esterase Urine RBC Urine WBC Urine Bacteria Urine Mucus Meds: Medications Acetaminophen (Acetaminophen 325 Mg Tablet) 650 mg PO Q6HP PRN; Protocol PRN Reason: Per Pain Protocol/Fever > 101 Albuterol/Ipratropium (Ipratropium/Albuterol 3 Ml Ampul.Neb) 3 ml NEB Q4HP PRN PRN Reason: Shortness Of Breath Amlodipine Besylate (Amlodipine 5 Mg Tablet) 5 mg PO QDAY [facility] Ceftriaxone Sodium (Ceftriaxone 1 Gm Vial) 1 gm IV Q24H [facility] Docusate Sodium (Docusate Sodium 100 Mg Capsule) 100 mg PO BID [facility] Last Admin: 09/07/21 21:32 Dose: Not Given Documented by: Famotidine (Famotidine/Pf 20 Mg/2 Ml Vial) 20 mg IV HS [facility] Last Admin: 09/07/21 21:36 Dose: 20 mg Documented by: Heparin Sodium (Porcine) (Heparin 5,000 Unit/Ml Vial) 5,000 unit SQ Q12 [facility] Last Admin: 09/07/21 21:36 Dose: 5,000 unit Documented by: Potassium Chloride 40 meq/ (Dextrose) 520 mls @ 130 mls/hr IV UD PRN PRN Reason: Potassium < 3 Magnesium Sulfate (Magnesium Sulfate) 2 gm in 50 mls @ 50 mls/hr IV UD PRN PRN Reason: Magnesium </= 1.6 Lactated Ringer's (Lactated Ringers) 250 mls @ 0 mls/hr IV .Q0M [facility] Last Infusion: 09/07/21 21:31 Dose: Infused Documented by: Dextrose (Dextrose 5% In Water) 250 mls @ 0 mls/hr IV .Q0M [facility] Last Infusion: 09/07/21 21:48 Dose: Infused Documented by: Dextrose (Dextrose 5% In Water) 1,000 mls @ 100 mls/hr IV .Q10H [facility] Last Admin: 09/07/21 23:00 Dose: 100 mls/hr Documented by: Latanoprost (Latanoprost Ophth Drops 2.5ml Bottle) 1 gtt OU QPM [facility] Last Admin: 09/07/21 21:32 Dose: Not Given Documented by: Levothyroxine Sodium (Levothyroxine 50 Mcg Tablet) 50 mcg PO QAMAC [facility] Ondansetron HCl (Ondansetron 4 Mg/2 Ml Vial) 4 mg IV Q4HP PRN PRN Reason: Nausea And Vomiting Polyethylene Glycol (Polyethylene Glycol 3350 17 Gm Packet) 17 gm PO DAILYP PRN PRN Reason: Constipation Potassium Chloride (Potassium Chloride 20 Meq Tablet) 40 meq PO UD PRN PRN Reason: Potssium is 3-3.5 Potassium Chloride (Potassium Chloride 20 Meq Tablet) 40 meq PO UD PRN PRN Reason: Potassium < 3 Senna (Sennosides 1 Tablet) 2 tab PO DAILYP PRN PRN Reason: Constipation Sodium Chloride (0.9 % Sodium Chloride 10 Ml Syringe) 10 ml IV Q8 [facility] Last Admin: 09/08/21 06:05 Dose: 10 ml Documented by: A/P Narrative A/P Narrative: A: *Dehydration/hypernatremia(likely chronic,>48hrs)/hyperchloremia: -water deficit 2.7 *Volume depletion: improving *Hyperkalemia: *Non-gap Met Acidosis: *HARRIET on CKD IV: improving *UTI ( ): *Encephalopathy: 2/2 above, multifactorial superimposed on underlying dementia -suspect back to baseline *Alzheimer's dementia, advanced: *Anemia(macro), chronic: *HTN: on norvasc *Hypothyroidism: *GERD: *Goals of care: P: -D5W, goal correction 10mEq per 24hrs -serial chemistry -monitor UOP -f/u renal fxn -Rocephin pending UC -cont home -PT/OT -ppx: Heparin DNR Time Spent With Patient Time: Total time spent is greater than 50% in coordination of care (as documented) at patient's floor/unit and/or counseling patient: QUALITY VTE Deep Vein Thrombosis/Pulmonary Embolism Present on Admission: No
[2021-09-08 08:15] LABS: POC Blood Urea Nitrogen 76 mg/dL (6-20); POC CO2 19 mmol/L (22-30); POC Calcium, Ionized 1.21 mmEq/L (1.16-1.32); POC Chloride 128 mEq/L (96-108); POC Creatinine 4.3 mg/dL (0.6-1.2); POC Glucose, Random 98 mg/dL (70-105); POC Hematocrit 27 % (36-48); POC Potassium 5.3 mEql/L (3.3-5.1); POC Sodium 157 mEq/L (133-145)
[2021-09-08] MEDS: LEVOTHYROXINE 50 MCG TABLET PO SCH (08:48)
[2021-09-08] MEDS: DOCUSATE SODIUM 100 MG CAPSULE PO SCH ×2 (08:48→19:24)
[2021-09-08] MEDS: HEPARIN 5,000 UNIT/ML VIAL SQ SCH ×2 (08:48→20:17)
[2021-09-08] MEDS: DEXTROSE 5% IN WATER 1,000 ML IV SCH ×2 (08:48→18:26)
[2021-09-08] MEDS: cefTRIAXone 1 GM VIAL IV SCH (08:49)
[2021-09-08] MEDS ORDERED: amLODIPine 5 MG TABLET PO SCH (09:00)
[2021-09-08] MEDS ORDERED: CHLORHEXIDINE GLUCONATE 473 ML BOTTLE TOPICAL SCH (11:00)
[2021-09-08 12:42] LABS: POC Blood Urea Nitrogen 70 mg/dL (6-20); POC CO2 18 mmol/L (22-30); POC Calcium, Ionized 1.15 mmEq/L (1.16-1.32); POC Chloride 128 mEq/L (96-108); POC Creatinine 4.2 mg/dL (0.6-1.2); POC Glucose, Random 101 mg/dL (70-105); POC Hematocrit 29 % (36-48); POC Potassium 5.3 mEql/L (3.3-5.1); POC Sodium 155 mEq/L (133-145)
[2021-09-08 18:18] LABS: POC Calcium, Ionized 1.16 mmEq/L (1.16-1.32); POC Creatinine 4.1 mg/dL (0.6-1.2); POC Potassium 5.1 mEql/L (3.3-5.1)
[2021-09-08] MEDS: MUPIROCIN OINT 2% 22GM NARES SCH (20:17)
[2021-09-08] MEDS: CHLORHEXIDINE GLUCONATE 1 ML ORAL.SOL SWABMOUTH SCH (20:18)
[2021-09-08] MEDS: FAMOTIDINE/PF 20 MG/2 ML VIAL IV SCH (20:18)
[2021-09-08] MEDS: LATANOPROST OPHTH DROPS 2.5ML BOTTLE OU SCH (20:18)
[2021-09-09 00:35] LABS: POC Blood Urea Nitrogen 62 mg/dL (6-20); POC CO2 17 mmol/L (22-30); POC Calcium, Ionized 1.19 mmEq/L (1.16-1.32); POC Chloride 123 mEq/L (96-108); POC Creatinine 3.9 mg/dL (0.6-1.2); POC Glucose, Random 110 mg/dL (70-105); POC Hematocrit 29 % (36-48); POC Potassium 5.1 mEql/L (3.3-5.1); POC Sodium 150 mEq/L (133-145)
[2021-09-09] MEDS: DEXTROSE 5% IN WATER 1,000 ML IV SCH ×2 (04:16→09:57)
[2021-09-09] MEDS: 0.9 % SODIUM CHLORIDE 10 ML SYRINGE IV SCH ×3 (05:42→21:20)
[2021-09-09 06:04] LABS: POC Calcium, Ionized 1.05 mmEq/L (1.16-1.32); POC Creatinine 3.9 mg/dL (0.6-1.2); POC Potassium 5.2 mEql/L (3.3-5.1)
[2021-09-09 07:10] LABS: ALT/SGPT 9 U/L (<40); AST/SGOT 17 U/L (<32); Albumin/Globulin Ratio 0.9 (1.0-2.3); Alkaline Phosphatase 126 U/L (39-117); Bilirubin,Direct < 0.2 mg/dL (0-0.3); Bilirubin,Total 0.2 mg/dL (0.1-1.0); Blood Urea Nitrogen 58 mg/dL (8-23); Calcium 8.2 mg/dL (8.6-10.4); Carbon Dioxide 16 mmol/L (22-30); Chloride 114 mmol/L (96-108); Globulin 3.4 gm/dL (2.2-3.7); Glomerular Filtration Rate 12; Glucose 105 mg/dL (70-105); Lactate Dehydrogenase 263 U/L (135-225); Phosphorous 3.3 mg/dL (2.5-4.5); Triglycerides 174 mg/dL (<150); Uric Acid 8.2 mg/dL (2.5-8.0)
[2021-09-09 07:42] LABS: Basophils # (Auto) 0.03 K/mcL (0.00-0.30); Basophils % (Auto) 0.3 % (0.0-2.0); Eosinophils # (Auto) 0.55 K/mcL (0.00-0.70); Eosinophils % (Auto) 5.7 % (0.0-7.0); Hematocrit 33.1 % (34.1-44.9); Hemoglobin 9.9 g/dL (11.2-15.7); Lymphocytes # (Auto) 1.17 K/mcL (1.50-4.80); Lymphocytes % (Auto) 12.1 % (15.5-49.0); Mean Cell Volume 100.3 fL (80.0-100.0); Mean Corpuscular HGB Conc 29.9 g/dL (31.0-36.0); Mean Platelet Volume 10.8 fL (7.4-10.4); Monocytes # (Auto) 0.54 K/mcL (0.10-0.90); Monocytes % (Auto) 5.6 % (1.0-12.0); Neutrophils % (Auto) 76.3 % (38.0-78.0); Platelet Count 231 K/mcL (140-440); Red Cell Distribution Width 14.6 % (11.5-14.5); WBC 9.7 K/mcL (4.5-11.0)
--- NOTE | 2021-09-09 07:50 | Internal Med Progress Note ---
SUBJECTIVE Subjective Patient information: Note initiated : 09/09/21 at 7:47 am Service Date, if different from initiated Date: [] Patient: Mraie Pinon 86 y/o F admitted on 09/07/21 for Possible UTI or Septic Hip. Chief Complaint: [] Interval history: History of present illness: Ms. Pinon is a 86 year old F Patient with a history of Alzheimer's dementia advanced brought in from [facility]. History is obtained from chart as unable to gather history from patient given her dementia and current state. She was brought in for decreased level of consciousness over the past few days. In the ED she was worked up she is found to have a sodium of 161 and potassium of 6.2 without any EKG changes. Her very hyperchloremic. BUN is 98 creatinine 4.5. He also was diagnosed with a UTI. Case discussed with head screen worker regarding her case is stated could be possible that she could need dialysis. This was discussed with family who stated patient is a DNR and that she would not want dialysis. [facility] and if she declines her renal function does not improve likely transition to comfort care. 09/08 Sodium coming down appropriately. Mentation improved and that she is alert but pleasantly confused and I suspect at baseline. 09/09 Sodium improving. Although quite a discrepancy between the [id number] sodium in the lab sodium. Patient mentation likely at baseline Review of Systems: Unable to gather given advanced dementia Constitutional Vitals: Vital Signs Temp Pulse Resp BP Pulse Ox 98.5 F 70 20 145/60 97 09/09/21 04:01 09/09/21 07:23 09/09/21 07:23 09/09/21 06:01 09/09/21 07:23 Period Temp Pulse Resp BP Sys/Tom Pulse Ox Last 24 Hr 98.5 F-99.1 F 68-87 13-21 106-145/51-78 94-100 Intake and Output 09/08/21 09/09/21 09/09/21 21:59 05:59 13:59 Intake Total 963 983 Output Total 375 340 Balance 588 643 Weight 56.416 kg Intake & Output: Intake & Output 09/08/21 09/09/21 09/09/21 21:59 05:59 13:59 Intake Total 963 983 Output Total 375 340 Balance 588 643 Weight 56.416 kg Intake: IV 963 983 Dextrose 5% in Water 1,000 ml @ 963 983 100 mls/hr IV .Q10H [facility] Rx#: [id number] Output: Urine Catheter Amount 375 340 Other: Urine Appearance Clear Clear Cloudy Uretheral (Enriquez) Clear Clear Cloudy Urine Color Straw Straw Bright Yellow Uretheral (Enriquez) Straw Straw Bright Yellow Exam: General: Alert, Awake, No acute Distress Eyes/N/T: EOMI, Head/Neck: neck supple, CV: RRR, No murmurs, Pulm: Clear b/l, no wheezing/rhonchi/rales Abd: soft, nontender, +BS x4 Ext: no clubbing/cyanosis/edema Neuro: Alert, moves all extremities, advanced dementia Skin: warm/dry OBJ DATA Labs CBC & Chem 7: 09/09/21 05:48 09/09/21 05:48 Labs: Abnormal Lab Results 09/09/21 09/09/21 09/09/21 05:48 05:48 05:48 RBC 3.30 L Hgb 9.9 L Hct 33.1 L POC Hct 28 L MCV 100.3 H MCHC 29.9 L RDW 14.6 H MPV 10.8 H Lymph % (Auto) 12.1 L Lymph # (Auto) 1.17 L POC Sodium 146 H Sodium POC Potassium 5.2 H Potassium 5.4 H POC Chloride 123 H Chloride 114 H Carbon Dioxide 16 L POC Total CO2 18 L POC BUN 63 H BUN 58 H Creatinine 3.3 H POC Creatinine 3.9 H POC Glucose 107 H Uric Acid 8.2 H Calcium 8.2 L POC WB Ioniz Calcium 1.05 L Magnesium Alkaline Phosphatase 126 H Lactate Dehydrogenase 263 H Total Protein Albumin 3.0 L Albumin/Globulin Ratio 0.9 L Triglycerides 174 H Thyroxine (T4) Urine Appearance Urine Protein Ur Leukocyte Esterase Urine RBC Urine WBC Urine Bacteria Urine Mucus 09/09/21 09/08/21 09/08/21 00:18 18:07 12:34 RBC Hgb Hct POC Hct 29 L 29 L 29 L MCV MCHC RDW MPV Lymph % (Auto) Lymph # (Auto) POC Sodium 150 H 152 H 155 H Sodium POC Potassium 5.3 H Potassium POC Chloride 123 H 125 H 128 H Chloride Carbon Dioxide POC Total CO2 17 L 18 L 18 L POC BUN 62 H 67 H 70 H BUN Creatinine POC Creatinine 3.9 H 4.1 H 4.2 H POC Glucose 110 H 129 H Uric Acid Calcium POC WB Ioniz Calcium 1.15 L Magnesium Alkaline Phosphatase Lactate Dehydrogenase Total Protein Albumin Albumin/Globulin Ratio Triglycerides Thyroxine (T4) Urine Appearance Urine Protein Ur Leukocyte Esterase Urine RBC Urine WBC Urine Bacteria Urine Mucus 09/08/21 09/08/21 09/08/21 08:00 04:18 04:18 RBC 2.86 L Hgb 8.8 L Hct 28.9 L POC Hct 27 L MCV 101.0 H MCHC 30.4 L RDW 15.0 H MPV Lymph % (Auto) Lymph # (Auto) POC Sodium 157 H Sodium 154 H POC Potassium 5.3 H Potassium 5.7 H POC Chloride 128 H Chloride 126 H Carbon Dioxide 16 L POC Total CO2 19 L POC BUN 76 H BUN 71 H Creatinine 3.8 H POC Creatinine 4.3 H POC Glucose Uric Acid 9.4 H Calcium 7.9 L POC WB Ioniz Calcium Magnesium 2.6 H Alkaline Phosphatase Lactate Dehydrogenase 269 H Total Protein 5.7 L Albumin 3.0 L Albumin/Globulin Ratio Triglycerides Thyroxine (T4) Urine Appearance Urine Protein Ur Leukocyte Esterase Urine RBC Urine WBC Urine Bacteria Urine Mucus 09/08/21 09/08/21 09/07/21 04:18 00:20 20:00 RBC Hgb Hct POC Hct 26 L 26 L 28 L MCV MCHC RDW MPV Lymph % (Auto) Lymph # (Auto) POC Sodium 158 H 161 H 164 H* Sodium POC Potassium 5.2 H 5.2 H Potassium POC Chloride 130 H 131 H 136 H Chloride Carbon Dioxide POC Total CO2 18 L 18 L 18 L POC BUN 80 H 82 H 87 H BUN Creatinine POC Creatinine 4.4 H 4.5 H 4.7 H POC Glucose Uric Acid Calcium POC WB Ioniz Calcium Magnesium Alkaline Phosphatase Lactate Dehydrogenase Total Protein Albumin Albumin/Globulin Ratio Triglycerides Thyroxine (T4) Urine Appearance Urine Protein Ur Leukocyte Esterase Urine RBC Urine WBC Urine Bacteria Urine Mucus 09/07/21 09/07/21 09/07/21 16:25 12:58 12:24 RBC Hgb Hct POC Hct 32 L 29 L MCV MCHC RDW MPV Lymph % (Auto) Lymph # (Auto) POC Sodium 166 H* 166 H* Sodium 164 H* 161 H* POC Potassium 5.9 H* 5.6 H Potassium 5.8 H 5.4 H POC Chloride 138 H 139 H Chloride 134 H 133 H Carbon Dioxide 17 L 15 L POC Total CO2 20 L 19 L POC BUN 91 H 90 H BUN 82 H 77 H Creatinine 4.3 H 4.0 H POC Creatinine 4.8 H 4.8 H POC Glucose Uric Acid Calcium 7.8 L 7.4 L POC WB Ioniz Calcium Magnesium Alkaline Phosphatase Lactate Dehydrogenase Total Protein Albumin Albumin/Globulin Ratio Triglycerides Thyroxine (T4) Urine Appearance Urine Protein Ur Leukocyte Esterase Urine RBC Urine WBC Urine Bacteria Urine Mucus 09/07/21 09/07/21 09/07/21 09:40 08:20 08:20 RBC 3.55 L Hgb 10.7 L Hct POC Hct MCV 101.4 H MCHC 29.7 L RDW 15.1 H MPV Lymph % (Auto) 15.4 L Lymph # (Auto) POC Sodium Sodium 161 H* POC Potassium Potassium 6.2 H* POC Chloride Chloride 132 H Carbon Dioxide 17 L POC Total CO2 POC BUN BUN 90 H Creatinine 4.5 H POC Creatinine POC Glucose Uric Acid Calcium POC WB Ioniz Calcium Magnesium Alkaline Phosphatase 150 H Lactate Dehydrogenase Total Protein Albumin Albumin/Globulin Ratio 0.9 L Triglycerides Thyroxine (T4) 4.5 L Urine Appearance Turbid A Urine Protein 100 A Ur Leukocyte Esterase 500 A Urine RBC 89 H Urine WBC > 182 H Urine Bacteria Few A Urine Mucus Few A Meds: Medications Acetaminophen (Acetaminophen 325 Mg Tablet) 650 mg PO Q6HP PRN; Protocol PRN Reason: Per Pain Protocol/Fever > 101 Albuterol/Ipratropium (Ipratropium/Albuterol 3 Ml Ampul.Neb) 3 ml NEB Q4HP PRN PRN Reason: Shortness Of Breath Ceftriaxone Sodium (Ceftriaxone 1 Gm Vial) 1 gm IV Q24H [facility] Last Admin: 09/08/21 08:49 Dose: 1 gm Documented by: Chlorhexidine Gluconate (Chlorhexidine Gluconate 473 Ml Bottle) 60 ml TOPICAL UD [facility] Chlorhexidine Gluconate (Chlorhexidine Gluconate 1 Ml Oral.Joelle) 15 ml SWABMOUTH BID [facility] Last Admin: 09/08/21 20:18 Dose: 15 ml Documented by: Docusate Sodium (Docusate Sodium 100 Mg Capsule) 100 mg PO BID [facility] Last Admin: 09/08/21 19:24 Dose: 100 mg Documented by: Famotidine (Famotidine/Pf 20 Mg/2 Ml Vial) 20 mg IV HS [facility] Last Admin: 09/08/21 20:18 Dose: 20 mg Documented by: Heparin Sodium (Porcine) (Heparin 5,000 Unit/Ml Vial) 5,000 unit SQ Q12 [facility] Last Admin: 09/08/21 20:17 Dose: 5,000 unit Documented by: Potassium Chloride 40 meq/ (Dextrose) 520 mls @ 130 mls/hr IV UD PRN PRN Reason: Potassium < 3 Magnesium Sulfate (Magnesium Sulfate) 2 gm in 50 mls @ 50 mls/hr IV UD PRN PRN Reason: Magnesium </= 1.6 Dextrose (Dextrose 5% In Water) 1,000 mls @ 100 mls/hr IV .Q10H [facility] Last Admin: 09/09/21 04:16 Dose: 100 mls/hr Documented by: Latanoprost (Latanoprost Ophth Drops 2.5ml Bottle) 1 gtt OU QPM [facility] Last Admin: 09/08/21 20:18 Dose: Not Given Documented by: Levothyroxine Sodium (Levothyroxine 50 Mcg Tablet) 50 mcg PO QAMAC [facility] Last Admin: 09/08/21 08:48 Dose: 50 mcg Documented by: Mupirocin (Mupirocin Oint 2% 22gm) 1 dose NARES BID [facility] Last Admin: 09/08/21 20:17 Dose: 1 dose Documented by: Ondansetron HCl (Ondansetron 4 Mg/2 Ml Vial) 4 mg IV Q4HP PRN PRN Reason: Nausea And Vomiting Polyethylene Glycol (Polyethylene Glycol 3350 17 Gm Packet) 17 gm PO DAILYP PRN PRN Reason: Constipation Potassium Chloride (Potassium Chloride 20 Meq Tablet) 40 meq PO UD PRN PRN Reason: Potssium is 3-3.5 Potassium Chloride (Potassium Chloride 20 Meq Tablet) 40 meq PO UD PRN PRN Reason: Potassium < 3 Senna (Sennosides 1 Tablet) 2 tab PO DAILYP PRN PRN Reason: Constipation Sodium Chloride (0.9 % Sodium Chloride 10 Ml Syringe) 10 ml IV Q8 [facility] Last Admin: 09/09/21 05:42 Dose: Not Given Documented by: A/P Narrative A/P Narrative: A: *Dehydration/hypernatremia(likely chronic,>48hrs)/hyperchloremia: -water deficit 2.7 *Volume depletion: improving *Hyperkalemia: *Non-gap Met Acidosis: *HARRIET on CKD IV: improving *UTI (GNB): *Encephalopathy: 2/2 above, multifactorial superimposed on underlying dementia -suspect back to baseline *Alzheimer's dementia, advanced: *Anemia(macro), chronic: *HTN: on norvasc *Hypothyroidism: *GERD: *Goals of care: P: -D5W change to D5 1/2NS (seems to be quite a discrepancy between POC sodium and lab sodium) -serial chemistry -monitor UOP -f/u renal fxn -Rocephin pending UC -cont home norvasc -PT/OT -ppx: Heparin DNR Time Spent With Patient Time: Total time spent is greater than 50% in coordination of care (as documented) at patient's floor/unit and/or counseling patient: QUALITY VTE Deep Vein Thrombosis/Pulmonary Embolism Present on Admission: No
[2021-09-09] MEDS ORDERED: DEXTROSE 5%-1/2NS 1,000 ML IV SCH (08:00)
[2021-09-09] MEDS: LEVOTHYROXINE 50 MCG TABLET PO SCH (08:12)
[2021-09-09] MEDS: DOCUSATE SODIUM 100 MG CAPSULE PO SCH ×2 (08:12→21:19)
[2021-09-09] MEDS: HEPARIN 5,000 UNIT/ML VIAL SQ SCH ×2 (08:13→21:22)
[2021-09-09] MEDS: CHLORHEXIDINE GLUCONATE 1 ML ORAL.SOL SWABMOUTH SCH ×2 (08:13→21:20)
[2021-09-09] MEDS: cefTRIAXone 1 GM VIAL IV SCH (08:13)
[2021-09-09] MEDS: MUPIROCIN OINT 2% 22GM NARES SCH ×2 (08:14→21:19)
[2021-09-09] MEDS: amLODIPine 5 MG TABLET PO SCH (08:25)
--- NOTE | 2021-09-09 08:25 | Nephrology Progress Note ---
SUBJECTIVE Subjective Patient information: Note initiated : 09/09/21 at 8:22 am Patient: Marie Pinon 86 y/o F admitted on 09/07/21 for Possible UTI or Septic Hip. Chief Complaint: Confused Pertinent ROS: Close to baseline by her son. Weakness Confusion Enriquez catheter with clear urine Constitutional Vitals: Vital Signs Temp Pulse Resp BP Pulse Ox 98.7 F 70 17 123/55 97 09/09/21 08:02 09/09/21 07:23 09/09/21 08:15 09/09/21 08:02 09/09/21 08:15 Period Temp Pulse Resp BP Sys/Tom Pulse Ox Last 24 Hr 98.5 F-99.1 F 68-87 13-21 106-145/51-78 94-100 Intake and Output 09/08/21 09/09/21 09/09/21 21:59 05:59 13:59 Intake Total 963 983 362 Output Total 375 340 Balance 588 643 362 Weight 124 lb 6 oz Intake & Output: Intake & Output 09/08/21 09/09/21 09/09/21 21:59 05:59 13:59 Intake Total 963 983 362 Output Total 375 340 Balance 588 643 362 Weight 124 lb 6 oz Intake: IV 963 983 362 Dextrose 5% in Water 1,000 ml @ 963 983 362 100 mls/hr IV .Q10H [facility] Rx#: [id number] Output: Urine Catheter Amount 375 340 Other: Urine Appearance Clear Clear Cloudy Uretheral (Enriquez) Clear Clear Cloudy Urine Color Straw Straw Bright Yellow Uretheral (Enriquez) Straw Straw Bright Yellow General appearance: cooperative and no acute distress Head Head exam: Present normal inspection Eye Eye exam: Present normal appearance ENT ENT exam: Present mucous membranes moist Respiratory Respiratory exam: Absent respiratory distress Cardiovascular Cardiovascular exam: Present normal rate and rhythm GI/Abdominal GI/Abdominal exam: Present soft; Absent tenderness Extremities Exam Extremities exam: Absent joint swelling or pedal edema Neurological Exam Neurological exam: Present alert and altered Skin Skin exam: Present warm; Absent rash A/P Assessment and plan (1) Acute kidney injury with acute tubular necrosis: Assessment and plan: Marie Pinon is a 86-year-old female with dementia, hypertension, chronic kidney disease, hypothyroidism presented to [facility] ED from [facility] on 09/07/20 for worsening mental status. Baseline serum creatinine: Not available. Nephrology consultation was requested for acute kidney injury. Acute kidney injury, likely acute tubular necrosis associated with prolonged dehydration and acute cystitis with initial hyperkalemia, metabolic acidosis and hypernatremia, present on arrival, improving. Hypernatremia, resolved. Work up: Urinalysis on 09/07/20: Yellow, turbid, pH 7.0, SG 1.013, protein 100, blood 0.03, leukocyte esterase 500, urine WBC >182. Progress: Serum creatinine decreased from 3.8 to 3.3 in the past 24 hours. Serum sodium decreased from 154 to 140 in the past 24 hours. Urine output: 1,165 ml reported in the past 24 hours. Metabolic acidosis. Hyperkalemia. Fluid status: I/O: +4.6 L Prognosis is poor. This has been discussed with the family. Recommendations/Plan: Low rate IVF with correction of metabolic acidosis. Sodium Bicarbonate 100 mEq in 1L D5W at 50 ml/hour ordered. She will need oral intake monitoring after discharge. Status: Acute (2) Hypernatremia: Status: Acute (3) Hyperkalemia: Status: Acute (4) Metabolic acidosis: Status: Acute Time Spent With Patient Time: Total time spent is greater than 50% in coordination of care (as documented) at patient's floor/unit and/or counseling patient:
[2021-09-09] MEDS ORDERED: DEXTROSE 50% 50 ML VIAL IV PRN (09:53)
[2021-09-09] MEDS ORDERED: DEXTROSE 31 GM ORAL.SUSP PO PRN (09:53)
[2021-09-09] MEDS: SODIUM BICARBONATE VIAL 100 MEQ in DEXTROSE 5% IN WATER 900 ML IV SCH (09:56)
--- NOTE | 2021-09-09 10:41 | General Surgery Consult Note ---
[facility] Data of Consult Consult date: 09/09/21 Requesting physician: Cleveland Ramírez Primary Care Provider: Gianluca Rivera Consult Narrative Chief complaint: Patient seen in ICU 120/A along with Seamus RN and Ajay Carson RN Reason for consult: Wound management: PU Right lateral heel (foot) and Left hip, Greater troch History of present illness: Admitted from ER for Electrolyte imbalance, Dehydration AMS, UTI and possible evolving sepsis. Patient is a resident at [facility] cc:: CC: Cleveland Ramírez Integumentary Integumentary: Present wounds (Right lateral heel (foot PU) and LEFT greater trochanter (Hip PU)) Neurological Neurological: Present as per HPI Additional comments: Admitted with AMS. Endocrine Endocrine: Present other Additional comments: Hypothyroiidism PFSH PFSH All Active Problems Metabolic acidosis (Acute) Hyperkalemia (Acute) Hypernatremia (Acute) Acute kidney injury with acute tubular necrosis (Acute) Acute delirium (Acute) Acute renal failure (ARF) (Acute) Acute hypernatremia (Acute) Acute hyperkalemia (Acute) Acute UTI (Acute) MEDS/ALLERGIES Home Medications and Allergies Home Medications Medication Instructions Recorded Confirmed Type acetaminophen 325 mg tablet 650 mg PO Q4HP PRN 09/07/21 09/07/21 History amlodipine 5 mg tablet 5 mg PO QDAY 09/07/21 09/07/21 History ascorbic acid (vitamin C) 500 mg 500 mg PO BID 09/07/21 09/07/21 History tablet bisacodyl 10 mg rectal suppository 10 mg FL QDAY PRN 09/07/21 09/07/21 History cranberry fruit 450 mg tablet 450 mg PO BID 09/07/21 09/07/21 History (cranberry) dicyclomine 20 mg tablet 20 mg PO BID 09/07/21 09/07/21 History diphenhydramine-zinc acetate 2 1 applic TOPICAL BIDP PRN 09/07/21 09/07/21 History %-0.1 % topical solution famotidine 20 mg tablet 20 mg PO QDAY 09/07/21 09/07/21 History ferrous sulfate 325 mg (65 mg 325 mg PO TID 09/07/21 09/07/21 History iron) tablet galantamine 4 mg tablet 4 mg PO DAILY 09/07/21 09/07/21 History hydroxyzine HCl 25 mg tablet 25 mg PO BID 09/07/21 09/07/21 History latanoprost 0.005 % eye drops 1 drp OPHTHALMIC (EYE) QPM 09/07/21 09/07/21 History levothyroxine 50 mcg tablet 50 mcg PO QDAY 09/07/21 09/07/21 History miconazole nitrate 2 % topical 1 applic TOPICAL HS 09/07/21 09/07/21 History powder multivitamin with minerals-folic 1 tab PO DAILY 09/07/21 09/07/21 History acid 0.4 mg tablet sodium phosphates 19 gram-7 118 ml FL ONCE PRN 09/07/21 09/07/21 History gram/118 mL enema (Enema) zinc sulfate 50 mg zinc (220 mg) 50 mg PO DAILY 09/07/21 09/07/21 History tablet Allergies Allergy/AdvReac Type Severity Reaction Status Date / Time No Known Drug Allergies Allergy Verified 09/07/21 08:09 Physical Examination Vital Signs Vital signs: Temp Pulse Resp BP Pulse Ox 98.7 F 70 17 123/55 97 09/09/21 08:02 09/09/21 07:23 09/09/21 08:15 09/09/21 08:02 09/09/21 08:15 General physical appearance General physical exam: well developed, well nourished, no distress and no pain Eyes Eye exam: normal ocular movement ENT ENT exam: normal pinna, normal mucosa and no congestion Head Head exam IM: Present normal inspection and normocephalic Neck Neck exam: no masses and no venous distension Cardiovascular Cardiovascular exam IM: Present normal rate and rhythm Peripheral pulses: 2+: dorsalis pedis (L) and dorsalis pedis (R) Respiratory Respiratory exam: normal respiratory effort and clear to auscultation Abdomen Abdomen: Present soft, non tender and bowel sounds Genitourinary Genitourinary (Female): Present other (Enriquez catheter draining clear urine) Integumentary Integumentary: Present other (RIGHT posterior lateral heel. Skin discoloration purple <2 CM Stage 1 PU. LEFT hip greater trochanter Stage 5; Dry black eschar over trochanter 5 x 4 CM periwound + edema. NO drainage and NO odor. NO warmth or crepitus. ) Neurologic Neurologic: Present normal coordination and other (Moans and does not wnt to be disturbed. Appropriate response) Musculoskeletal Musculoskeletal: Present other (Bed bound. ) Psychiatric Psychiatric: Present other (Unable to assess) Additional Findings Additional exam: WOUNDS: as above in Integumentary section. NEED protective Mepilex for heel and SANTYL chemical debridement of LEFT hip eschar. Cover with Mepilex to protect this site. Results Labs Result diagrams: 09/09/21 05:48 09/09/21 05:48 Labs: Abnormal lab results 09/08/21 09/08/21 09/09/21 Range/Units 12:34 18:07 00:18 RBC (3.59-5.38) M/mcL Hgb (11.2-15.7) g/dL Hct (34.1-44.9) % POC Hct 29 L 29 L 29 L (36-48) % MCV (80.0-100.0) fL MCHC (31.0-36.0) g/dL RDW (11.5-14.5) % MPV (7.4-10.4) fL Lymph % (Auto) (15.5-49.0) % Lymph # (Auto) (1.50-4.80) K/mcL POC Sodium 155 H 152 H 150 H (133-145) mEq/L POC Potassium 5.3 H (3.3-5.1) mEql/L Potassium (3.3-5.1) mmol/L POC Chloride 128 H 125 H 123 H (96-108) mEq/L Chloride (96-108) mmol/L Carbon Dioxide (22-30) mmol/L POC Total CO2 18 L 18 L 17 L (22-30) mmol/L POC BUN 70 H 67 H 62 H (6-20) mg/dL BUN (8-23) mg/dL Creatinine (0.6-1.1) mg/dL POC Creatinine 4.2 H 4.1 H 3.9 H (0.6-1.2) mg/dL POC Glucose 129 H 110 H (70-105) mg/dL Uric Acid (2.5-8.0) mg/dL Calcium (8.6-10.4) mg/dL POC WB Ioniz Calcium 1.15 L (1.16-1.32) mmEq/L Alkaline Phosphatase (39-117) U/L Lactate Dehydrogenase (135-225) U/L Albumin (3.2-5.2) gm/dL Albumin/Globulin Ratio (1.0-2.3) Triglycerides (<150) mg/dL 09/09/21 09/09/21 09/09/21 Range/Units 05:48 05:48 05:48 RBC 3.30 L (3.59-5.38) M/mcL Hgb 9.9 L (11.2-15.7) g/dL Hct 33.1 L (34.1-44.9) % POC Hct 28 L (36-48) % MCV 100.3 H (80.0-100.0) fL MCHC 29.9 L (31.0-36.0) g/dL RDW 14.6 H (11.5-14.5) % MPV 10.8 H (7.4-10.4) fL Lymph % (Auto) 12.1 L (15.5-49.0) % Lymph # (Auto) 1.17 L (1.50-4.80) K/mcL POC Sodium 146 H (133-145) mEq/L POC Potassium 5.2 H (3.3-5.1) mEql/L Potassium 5.4 H (3.3-5.1) mmol/L POC Chloride 123 H (96-108) mEq/L Chloride 114 H (96-108) mmol/L Carbon Dioxide 16 L (22-30) mmol/L POC Total CO2 18 L (22-30) mmol/L POC BUN 63 H (6-20) mg/dL BUN 58 H (8-23) mg/dL Creatinine 3.3 H (0.6-1.1) mg/dL POC Creatinine 3.9 H (0.6-1.2) mg/dL POC Glucose 107 H (70-105) mg/dL Uric Acid 8.2 H (2.5-8.0) mg/dL Calcium 8.2 L (8.6-10.4) mg/dL POC WB Ioniz Calcium 1.05 L (1.16-1.32) mmEq/L Alkaline Phosphatase 126 H (39-117) U/L Lactate Dehydrogenase 263 H (135-225) U/L Albumin 3.0 L (3.2-5.2) gm/dL Albumin/Globulin Ratio 0.9 L (1.0-2.3) Triglycerides 174 H (<150) mg/dL Diabetes panel 09/09/21 Range/Units 05:48 Sodium 140 (133-145) mmol/L Potassium 5.4 H (3.3-5.1) mmol/L Chloride 114 H (96-108) mmol/L Carbon Dioxide 16 L (22-30) mmol/L BUN 58 H (8-23) mg/dL Creatinine 3.3 H (0.6-1.1) mg/dL Glucose 105 (70-105) mg/dL Calcium 8.2 L (8.6-10.4) mg/dL AST 17 (<32) U/L ALT 9 (<40) U/L Alkaline Phosphatase 126 H (39-117) U/L Total Protein 6.4 (5.9-8.4) gm/dL Albumin 3.0 L (3.2-5.2) gm/dL Triglycerides 174 H (<150) mg/dL Calcium panel 09/09/21 Range/Units 05:48 Calcium 8.2 L (8.6-10.4) mg/dL Phosphorus 3.3 (2.5-4.5) mg/dL Albumin 3.0 L (3.2-5.2) gm/dL Pituitary panel 09/09/21 Range/Units 05:48 Sodium 140 (133-145) mmol/L Potassium 5.4 H (3.3-5.1) mmol/L Chloride 114 H (96-108) mmol/L Carbon Dioxide 16 L (22-30) mmol/L BUN 58 H (8-23) mg/dL Creatinine 3.3 H (0.6-1.1) mg/dL Glucose 105 (70-105) mg/dL Calcium 8.2 L (8.6-10.4) mg/dL Adrenal panel 09/09/21 Range/Units 05:48 Sodium 140 (133-145) mmol/L Potassium 5.4 H (3.3-5.1) mmol/L Chloride 114 H (96-108) mmol/L Carbon Dioxide 16 L (22-30) mmol/L BUN 58 H (8-23) mg/dL Creatinine 3.3 H (0.6-1.1) mg/dL Glucose 105 (70-105) mg/dL Calcium 8.2 L (8.6-10.4) mg/dL Total Bilirubin 0.2 (0.1-1.0) mg/dL AST 17 (<32) U/L ALT 9 (<40) U/L Alkaline Phosphatase 126 H (39-117) U/L Total Protein 6.4 (5.9-8.4) gm/dL Albumin 3.0 L (3.2-5.2) gm/dL All other labs normal. A/P Narrative A/P Narrative: Assessment: PU Right heel and LEFT hip Comorbidities: Dehydration , improving Electrolyte imbalance improving AMS ? Encephalopathy ?? resolving (Not sure of baseline mentation H/O Dementia and Alzheimer HTN Hypothyroidism Anemia GERD Plan: Reviewed notes form treating physicians Plan of wound care d/w Seamus HUMPHRIES and Dr. Ramírez, Hospitalist Physician Conservative management and protective dressings for wounds Off loading NO debridement needed at this time Will follow patient during her hospital stay Time Spent With Patient Time: Total time spent is greater than 50% in coordination of care (as documented) at patient's floor/unit and/or counseling patient: Total time spent with greater than 50% in coordination of care (as documented) at patient's floor/unit and/or counseling patient:: Greater than 35 minutes
--- NOTE | 2021-09-09 10:51 | General Surgery Consult Note ---
HPI Data of Consult Consult date: 09/09/21 Primary Care Provider: Gianluca Rivera Consult Narrative History of present illness: Seen for wound care / management. Patient seen with Seamus Rn and Ajay Carson RN in ICU 120/A cc:: CC: [place] Ramírez Review of Systems All systems: reviewed and no additional remarkable complaints except as stated (Reviewed notes from Hospitalist physican, ) PFSH PFSH All Active Problems Metabolic acidosis (Acute) Hyperkalemia (Acute) Hypernatremia (Acute) Acute kidney injury with acute tubular necrosis (Acute) Acute delirium (Acute) Acute renal failure (ARF) (Acute) Acute hypernatremia (Acute) Acute hyperkalemia (Acute) Acute UTI (Acute) MEDS/ALLERGIES Home Medications and Allergies Home Medications Medication Instructions Recorded Confirmed Type acetaminophen 325 mg tablet 650 mg PO Q4HP PRN 09/07/21 09/07/21 History amlodipine 5 mg tablet 5 mg PO QDAY 09/07/21 09/07/21 History ascorbic acid (vitamin C) 500 mg 500 mg PO BID 09/07/21 09/07/21 History tablet bisacodyl 10 mg rectal suppository 10 mg MS QDAY PRN 09/07/21 09/07/21 History cranberry fruit 450 mg tablet 450 mg PO BID 09/07/21 09/07/21 History (cranberry) dicyclomine 20 mg tablet 20 mg PO BID 09/07/21 09/07/21 History diphenhydramine-zinc acetate 2 1 applic TOPICAL BIDP PRN 09/07/21 09/07/21 History %-0.1 % topical solution famotidine 20 mg tablet 20 mg PO QDAY 09/07/21 09/07/21 History ferrous sulfate 325 mg (65 mg 325 mg PO TID 09/07/21 09/07/21 History iron) tablet galantamine 4 mg tablet 4 mg PO DAILY 09/07/21 09/07/21 History hydroxyzine HCl 25 mg tablet 25 mg PO BID 09/07/21 09/07/21 History latanoprost 0.005 % eye drops 1 drp OPHTHALMIC (EYE) QPM 09/07/21 09/07/21 History levothyroxine 50 mcg tablet 50 mcg PO QDAY 09/07/21 09/07/21 History miconazole nitrate 2 % topical 1 applic TOPICAL HS 09/07/21 09/07/21 History powder multivitamin with minerals-folic 1 tab PO DAILY 09/07/21 09/07/21 History acid 0.4 mg tablet sodium phosphates 19 gram-7 118 ml MS ONCE PRN 09/07/21 09/07/21 History gram/118 mL enema (Enema) zinc sulfate 50 mg zinc (220 mg) 50 mg PO DAILY 09/07/21 09/07/21 History tablet Allergies Allergy/AdvReac Type Severity Reaction Status Date / Time No Known Drug Allergies Allergy Verified 09/07/21 08:09 Physical Examination Vital Signs Vital signs: Temp Pulse Resp BP Pulse Ox 98.7 F 70 17 123/55 97 09/09/21 08:02 09/09/21 07:23 09/09/21 08:15 09/09/21 08:02 09/09/21 08:15 General physical appearance General physical exam: well developed, no distress and no pain Eyes Eye exam: normal ocular movement ENT ENT exam: normal pinna, normal mucosa and no congestion Head Head exam IM: Present normal inspection Neck Neck exam: no masses and no venous distension Cardiovascular Cardiovascular exam IM: Present normal rate and rhythm Respiratory Respiratory exam: normal respiratory effort and clear to auscultation Abdomen Abdomen: Present soft, non tender and bowel sounds Integumentary Integumentary: Present other (RIGHT heel lateral PU Stage 1 < 2 CM. LEFT hip greater trochanter 5 x 4 CM Stage 5. DRY periwound skin with + pitting edema. NO crepitus) Neurologic Neurologic: Present other (Appropriate response to pain and moves all extremities. ) Results Labs Result diagrams: 09/09/21 05:48 09/09/21 05:48 Labs: Abnormal lab results 09/08/21 09/08/21 09/09/21 Range/Units 12:34 18:07 00:18 RBC (3.59-5.38) M/mcL Hgb (11.2-15.7) g/dL Hct (34.1-44.9) % POC Hct 29 L 29 L 29 L (36-48) % MCV (80.0-100.0) fL MCHC (31.0-36.0) g/dL RDW (11.5-14.5) % MPV (7.4-10.4) fL Lymph % (Auto) (15.5-49.0) % Lymph # (Auto) (1.50-4.80) K/mcL POC Sodium 155 H 152 H 150 H (133-145) mEq/L POC Potassium 5.3 H (3.3-5.1) mEql/L Potassium (3.3-5.1) mmol/L POC Chloride 128 H 125 H 123 H (96-108) mEq/L Chloride (96-108) mmol/L Carbon Dioxide (22-30) mmol/L POC Total CO2 18 L 18 L 17 L (22-30) mmol/L POC BUN 70 H 67 H 62 H (6-20) mg/dL BUN (8-23) mg/dL Creatinine (0.6-1.1) mg/dL POC Creatinine 4.2 H 4.1 H 3.9 H (0.6-1.2) mg/dL POC Glucose 129 H 110 H (70-105) mg/dL Uric Acid (2.5-8.0) mg/dL Calcium (8.6-10.4) mg/dL POC WB Ioniz Calcium 1.15 L (1.16-1.32) mmEq/L Alkaline Phosphatase (39-117) U/L Lactate Dehydrogenase (135-225) U/L Albumin (3.2-5.2) gm/dL Albumin/Globulin Ratio (1.0-2.3) Triglycerides (<150) mg/dL 09/09/21 09/09/21 09/09/21 Range/Units 05:48 05:48 05:48 RBC 3.30 L (3.59-5.38) M/mcL Hgb 9.9 L (11.2-15.7) g/dL Hct 33.1 L (34.1-44.9) % POC Hct 28 L (36-48) % MCV 100.3 H (80.0-100.0) fL MCHC 29.9 L (31.0-36.0) g/dL RDW 14.6 H (11.5-14.5) % MPV 10.8 H (7.4-10.4) fL Lymph % (Auto) 12.1 L (15.5-49.0) % Lymph # (Auto) 1.17 L (1.50-4.80) K/mcL POC Sodium 146 H (133-145) mEq/L POC Potassium 5.2 H (3.3-5.1) mEql/L Potassium 5.4 H (3.3-5.1) mmol/L POC Chloride 123 H (96-108) mEq/L Chloride 114 H (96-108) mmol/L Carbon Dioxide 16 L (22-30) mmol/L POC Total CO2 18 L (22-30) mmol/L POC BUN 63 H (6-20) mg/dL BUN 58 H (8-23) mg/dL Creatinine 3.3 H (0.6-1.1) mg/dL POC Creatinine 3.9 H (0.6-1.2) mg/dL POC Glucose 107 H (70-105) mg/dL Uric Acid 8.2 H (2.5-8.0) mg/dL Calcium 8.2 L (8.6-10.4) mg/dL POC WB Ioniz Calcium 1.05 L (1.16-1.32) mmEq/L Alkaline Phosphatase 126 H (39-117) U/L Lactate Dehydrogenase 263 H (135-225) U/L Albumin 3.0 L (3.2-5.2) gm/dL Albumin/Globulin Ratio 0.9 L (1.0-2.3) Triglycerides 174 H (<150) mg/dL Diabetes panel 09/09/21 Range/Units 05:48 Sodium 140 (133-145) mmol/L Potassium 5.4 H (3.3-5.1) mmol/L Chloride 114 H (96-108) mmol/L Carbon Dioxide 16 L (22-30) mmol/L BUN 58 H (8-23) mg/dL Creatinine 3.3 H (0.6-1.1) mg/dL Glucose 105 (70-105) mg/dL Calcium 8.2 L (8.6-10.4) mg/dL AST 17 (<32) U/L ALT 9 (<40) U/L Alkaline Phosphatase 126 H (39-117) U/L Total Protein 6.4 (5.9-8.4) gm/dL Albumin 3.0 L (3.2-5.2) gm/dL Triglycerides 174 H (<150) mg/dL Calcium panel 09/09/21 Range/Units 05:48 Calcium 8.2 L (8.6-10.4) mg/dL Phosphorus 3.3 (2.5-4.5) mg/dL Albumin 3.0 L (3.2-5.2) gm/dL Pituitary panel 09/09/21 Range/Units 05:48 Sodium 140 (133-145) mmol/L Potassium 5.4 H (3.3-5.1) mmol/L Chloride 114 H (96-108) mmol/L Carbon Dioxide 16 L (22-30) mmol/L BUN 58 H (8-23) mg/dL Creatinine 3.3 H (0.6-1.1) mg/dL Glucose 105 (70-105) mg/dL Calcium 8.2 L (8.6-10.4) mg/dL Adrenal panel 09/09/21 Range/Units 05:48 Sodium 140 (133-145) mmol/L Potassium 5.4 H (3.3-5.1) mmol/L Chloride 114 H (96-108) mmol/L Carbon Dioxide 16 L (22-30) mmol/L BUN 58 H (8-23) mg/dL Creatinine 3.3 H (0.6-1.1) mg/dL Glucose 105 (70-105) mg/dL Calcium 8.2 L (8.6-10.4) mg/dL Total Bilirubin 0.2 (0.1-1.0) mg/dL AST 17 (<32) U/L ALT 9 (<40) U/L Alkaline Phosphatase 126 H (39-117) U/L Total Protein 6.4 (5.9-8.4) gm/dL Albumin 3.0 L (3.2-5.2) gm/dL All other labs normal. A/P Narrative A/P Narrative: Pressure ulcer site wounds RIGHT lateral heel ( foot ) For Mepilex border foam LEFT lateral hip. Greater trochanter PU Site Stage 5 Plan: Protective dressings, Mepilex Santyl for LEFT hip eschar Will follow patient during hospital stay. Time Spent With Patient Time: Total time spent is greater than 50% in coordination of care (as documented) at patient's floor/unit and/or counseling patient:
[2021-09-09] MEDS: INSULIN LISPRO 1 UNIT/0.01 ML UNIT SQ SCH ×2 (11:31→17:38)
[2021-09-09] MEDS: COLLAGENASE TOP OINT TUBE 30GM TOPICAL SCH (12:09)
[2021-09-09 13:10] LABS: POC Blood Urea Nitrogen 52 mg/dL (6-20); POC CO2 16 mmol/L (22-30); POC Calcium, Ionized 1.15 mmEq/L (1.16-1.32); POC Chloride 118 mEq/L (96-108); POC Creatinine 3.6 mg/dL (0.6-1.2); POC Glucose, Random 130 mg/dL (70-105); POC Hematocrit 32 % (36-48); POC Potassium 5.2 mEql/L (3.3-5.1); POC Sodium 145 mEq/L (133-145)
[2021-09-09 19:30] LABS: POC Calcium, Ionized 1.1 mmEq/L (1.16-1.32); POC Creatinine 3.4 mg/dL (0.6-1.2); POC Potassium 5.3 mEql/L (3.3-5.1)
[2021-09-09] MEDS: LATANOPROST OPHTH DROPS 2.5ML BOTTLE OU SCH (21:19)
[2021-09-09] MEDS: FAMOTIDINE/PF 20 MG/2 ML VIAL IV SCH (21:22)
[2021-09-10] MEDS: DEXTROSE 5% IN WATER 1,000 ML IV SCH (04:31)
[2021-09-10] MEDS: 0.9 % SODIUM CHLORIDE 10 ML SYRINGE IV SCH ×3 (05:32→21:18)
[2021-09-10] MEDS: SODIUM BICARBONATE VIAL 100 MEQ in DEXTROSE 5% IN WATER 900 ML IV SCH (05:38)
[2021-09-10 07:11] LABS: Basophils # (Auto) 0.02 K/mcL (0.00-0.30); Basophils % (Auto) 0.2 % (0.0-2.0); Eosinophils # (Auto) 0.56 K/mcL (0.00-0.70); Eosinophils % (Auto) 6.9 % (0.0-7.0); Hematocrit 33.5 % (34.1-44.9); Hemoglobin 10.4 g/dL (11.2-15.7); Lymphocytes # (Auto) 1.05 K/mcL (1.50-4.80); Lymphocytes % (Auto) 12.9 % (15.5-49.0); Mean Cell Volume 97.1 fL (80.0-100.0); Mean Platelet Volume 9.9 fL (7.4-10.4); Monocytes # (Auto) 0.45 K/mcL (0.10-0.90); Monocytes % (Auto) 5.5 % (1.0-12.0); Neutrophils % (Auto) 74.5 % (38.0-78.0); Platelet Count 264 K/mcL (140-440); RBC 3.45 M/mcL (3.59-5.38); Red Cell Distribution Width 14.3 % (11.5-14.5); WBC 8.1 K/mcL (4.5-11.0)
[2021-09-10 07:39] LABS: ALT/SGPT 10 U/L (<40); AST/SGOT 15 U/L (<32); Albumin/Globulin Ratio 0.9 (1.0-2.3); Alkaline Phosphatase 141 U/L (39-117); Bilirubin,Total 0.2 mg/dL (0.1-1.0); Blood Urea Nitrogen 49 mg/dL (8-23); Calcium 8.1 mg/dL (8.6-10.4); Carbon Dioxide 19 mmol/L (22-30); Chloride 110 mmol/L (96-108); Globulin 3.4 gm/dL (2.2-3.7); Glomerular Filtration Rate 14; Glucose 109 mg/dL (70-105)
--- NOTE | 2021-09-10 07:48 | Nephrology Progress Note ---
SUBJECTIVE Subjective Patient information: Note initiated : 09/10/21 at 7:46 am Patient: Marie Pinon 86 y/o F admitted on 09/07/21 for Possible UTI or Septic Hip. Chief Complaint: [Altered Pertinent ROS: Altered mental status (chronic) Constitutional Vitals: Vital Signs Temp Pulse Resp BP Pulse Ox 97.4 F 71 16 105/61 96 09/10/21 04:16 09/10/21 04:16 09/10/21 00:10 09/10/21 00:11 09/10/21 04:16 Period Temp Pulse Resp BP Sys/Tom Pulse Ox Last 24 Hr 97.4 F-99.2 F 71-79 14-17 105-133/55-82 91-98 Intake and Output 09/09/21 09/10/21 09/10/21 21:59 05:59 13:59 Intake Total 170 1913 Output Total 350 500 Balance -180 1413 Weight 126 lb 1 oz Intake & Output: Intake & Output 09/09/21 09/10/21 09/10/21 21:59 05:59 13:59 Intake Total 170 1913 Output Total 350 500 Balance -180 1413 Weight 126 lb 1 oz Intake: IV 1913 Dextrose 5% in Water 1,000 ml @ 928 50 mls/hr IV .Q20H [facility] Rx#: [id number] Sodium Bicarbonate Vial 100 Meq 985 In Dextrose 5% in Water 900 ml @ 50 mls/hr IV Q20H [facility] Rx#: [id number] Oral 170 Output: Urine Catheter Amount 350 500 Other: Urine Appearance Clear Clear Urine Color Bright Yellow Pale General appearance: no acute distress Head Head exam: Present normal inspection Eye Eye exam: Present normal appearance ENT ENT exam: Present mucous membranes moist Respiratory Respiratory exam: Absent respiratory distress Cardiovascular Cardiovascular exam: Present normal rate and rhythm GI/Abdominal GI/Abdominal exam: Present soft; Absent tenderness Extremities Exam Extremities exam: Absent joint swelling or pedal edema Neurological Exam Neurological exam: Present alert and altered Skin Skin exam: Present warm; Absent rash A/P Assessment and plan (1) Acute kidney injury with acute tubular necrosis: Assessment and plan: Marie Pinon is a 86-year-old female with dementia, hypertension, chronic kidney disease, hypothyroidism presented to [facility] ED from [facility] on 09/07/20 for worsening mental status. Baseline serum creatinine: 6.6 to 7.3 in June to July 242019 then 3.9-4.8 in July 262019. Nephrology consultation was requested for acute kidney injury. Acute kidney injury, likely acute tubular necrosis associated with prolonged dehydration and acute cystitis with initial hyperkalemia, metabolic acidosis and hypernatremia, present on arrival, improving. Hypernatremia, resolved. Metabolic acidosis, improved. Hyperkalemia, improved. Work up: Urinalysis on 09/07/20: Yellow, turbid, pH 7.0, SG 1.013, protein 100, blood 0.03, leukocyte esterase 500, urine WBC >182. Treatment: Sodium Bicarbonate 100 mEq in 1L D5W at 50 ml/hour. Progress: Serum creatinine decreased from 3.3 to 2.9 in the past 24 hours. Baseline serum creatinine: 6.6 to 7.3 in June to July 242019 then 3.9-4.8 in July 262019. Serum sodium changed from 140 to 142 in the past 24 hours. Urine output: 1,325 ml reported in the past 24 hours. Metabolic acidosis, improved. Hyperkalemia, improved. Fluid status: I/O: +6.1 L since admission. Prognosis is poor. This has been discussed with the family. They decided for no invasive procedures, dialysis or transfer out of town. Recommendations/Plan: She will need oral intake monitoring after discharge. Status: Acute (2) Hypernatremia: Status: Acute (3) Hyperkalemia: Status: Acute (4) Metabolic acidosis: Status: Acute Time Spent With Patient Time: Total time spent is greater than 50% in coordination of care (as documented) at patient's floor/unit and/or counseling patient:
[2021-09-10] MEDS: INSULIN LISPRO 1 UNIT/0.01 ML UNIT SQ SCH ×3 (08:08→17:11)
[2021-09-10] MEDS: HEPARIN 5,000 UNIT/ML VIAL SQ SCH ×2 (08:34→21:17)
[2021-09-10] MEDS: LEVOTHYROXINE 50 MCG TABLET PO SCH (08:34)
[2021-09-10] MEDS: cefTRIAXone 1 GM VIAL IV SCH (09:05)
[2021-09-10] MEDS: MUPIROCIN OINT 2% 22GM NARES SCH ×2 (09:06→21:17)
[2021-09-10] MEDS: DOCUSATE SODIUM 100 MG CAPSULE PO SCH ×2 (09:12→21:17)
[2021-09-10] MEDS: CHLORHEXIDINE GLUCONATE 1 ML ORAL.SOL SWABMOUTH SCH ×2 (09:13→21:18)
[2021-09-10] MEDS: amLODIPine 5 MG TABLET PO SCH (10:05)
[2021-09-10] MEDS: COLLAGENASE TOP OINT TUBE 30GM TOPICAL SCH (10:29)
--- NOTE | 2021-09-10 12:50 | Internal Med Progress Note ---
SUBJECTIVE Subjective Patient information: Note initiated : 09/10/21 at 12:43 pm Service Date, if different from initiated Date: [] Patient: Marie Pinon a 86 y/o F admitted on 09/07/21 for Possible UTI or Septic Hip. Chief Complaint: [UTI] Principal diagnosis: UTI Interval history: History of present illness: Ms. Pinon is a 86 year old F Patient with a history of Alzheimer's dementia advanced brought in from [facility]. History is obtained from chart as unable to gather history from patient given her dementia and current state. She was brought in for decreased level of consciousness over the past few days. In the ED she was worked up she is found to have a sodium of 161 and potassium of 6.2 without any EKG changes. Her very hyperchloremic. BUN is 98 creatinine 4.5. He also was diagnosed with a UTI. Case discussed with residence supervisor regarding her case is stated could be possible that she could need dialysis. This was discussed with family who stated patient is a DNR and that she would not want dialysis. Patient will be treated at located within [facility] and if she declines her renal function does not improve likely transition to comfort care. 09/08 Sodium coming down appropriately. Mentation improved and that she is alert but pleasantly confused and I suspect at baseline. 09/09 Sodium improving. Although quite a discrepancy between the [id number] sodium in the lab sodium. Patient mentation likely at baseline 09/10: Family, son, has questions regarding prognosis and goal of care. Will conduct bedside care conference with possibility of switching to comfort care only. Pertinent ROS: Review of Systems: Unable to gather given advanced dementia Constitutional Vitals: Vital Signs Temp Pulse Resp BP Pulse Ox 37.1 C 86 14 127/56 97 09/10/21 12:00 09/10/21 12:00 09/10/21 11:59 09/10/21 11:59 09/10/21 12:00 Period Temp Pulse Resp BP Sys/Tom Pulse Ox Last 24 Hr 36.3 C-37.3 C 69-86 14-17 105-133/54-67 91-97 Intake and Output 09/09/21 09/10/21 09/10/21 21:59 05:59 13:59 Intake Total 170 1913 594 Output Total 350 500 Balance -180 1413 594 Weight 57.181 kg Intake & Output: Intake & Output 09/09/21 09/10/21 09/10/21 21:59 05:59 13:59 Intake Total 170 1913 594 Output Total 350 500 Balance -180 1413 594 Weight 57.181 kg Intake: Nourishment/Supplement quantity 240 (ml) IV 191 234 Dextrose 5% in Water 1,000 ml @ 928 234 50 mls/hr IV .Q20H [facility] Rx#: [id number] Sodium Bicarbonate Vial 100 Meq 985 In Dextrose 5% in Water 900 ml @ 50 mls/hr IV Q20H [facility] Rx#: [id number] Oral 170 120 Output: Urine Catheter Amount 350 500 Other: Meal Lunch Percent of Meal Consumed 100% Feeding Ability Total Assistance Nourishment/Supplement name Ensure Urine Appearance Clear Clear Urine Color Bright Yellow Pale Stool Size Moderate Stool Color Green Black Stool Consistency Soft Formed # Bowel Movements 1 # of times incontinent of 1 Bowels Head Head exam: Present atraumatic and normal inspection Eye Eye exam: Present normal appearance ENT ENT exam: Present mucous membranes moist, normal exam and normal external ear exam Neck Neck exam: Present normal inspection Respiratory Respiratory exam: Present normal respiratory exam Cardiovascular Cardiovascular exam: Present normal rate and rhythm GI/Abdominal GI/Abdominal exam: Present normal bowel sounds Back Exam Back exam: Present normal inspection Neurological Exam Neurological exam: Present altered and CN II-XII intact; Absent alert or oriented X3 Skin Skin exam: Present warm; Absent intact Additional comments: Stage 2 coccyx ulcer X2 OBJ DATA Labs CBC & Chem 7: 09/10/21 06:00 09/10/21 06:00 Labs: Abnormal Lab Results 09/10/21 09/10/21 09/09/21 06:00 06:00 19:02 RBC 3.45 L Hgb 10.4 L Hct 33.5 L POC Hct 30 L MCV MCHC RDW MPV Lymph % (Auto) 12.9 L Lymph # (Auto) 1.05 L POC Sodium Sodium POC Potassium 5.3 H Potassium 5.3 H POC Chloride 115 H Chloride 110 H Carbon Dioxide 19 L POC Total CO2 19 L POC BUN 51 H BUN 49 H Creatinine 2.9 H POC Creatinine 3.4 H Glucose 109 H POC Glucose 112 H Uric Acid Calcium 8.1 L POC WB Ioniz Calcium 1.10 L Magnesium Alkaline Phosphatase 141 H Lactate Dehydrogenase Total Protein Albumin 3.0 L Albumin/Globulin Ratio 0.9 L Triglycerides 09/09/21 09/09/21 09/09/21 13:02 05:48 05:48 RBC 3.30 L Hgb 9.9 L Hct 33.1 L POC Hct 32 L MCV 100.3 H MCHC 29.9 L RDW 14.6 H MPV 10.8 H Lymph % (Auto) 12.1 L Lymph # (Auto) 1.17 L POC Sodium Sodium POC Potassium 5.2 H Potassium 5.4 H POC Chloride 118 H Chloride 114 H Carbon Dioxide 16 L POC Total CO2 16 L POC BUN 52 H BUN 58 H Creatinine 3.3 H POC Creatinine 3.6 H Glucose POC Glucose 130 H Uric Acid 8.2 H Calcium 8.2 L POC WB Ioniz Calcium 1.15 L Magnesium Alkaline Phosphatase 126 H Lactate Dehydrogenase 263 H Total Protein Albumin 3.0 L Albumin/Globulin Ratio 0.9 L Triglycerides 174 H 09/09/21 09/09/21 09/08/21 05:48 00:18 18:07 RBC Hgb Hct POC Hct 28 L 29 L 29 L MCV MCHC RDW MPV Lymph % (Auto) Lymph # (Auto) POC Sodium 146 H 150 H 152 H Sodium POC Potassium 5.2 H Potassium POC Chloride 123 H 123 H 125 H Chloride Carbon Dioxide POC Total CO2 18 L 17 L 18 L POC BUN 63 H 62 H 67 H BUN Creatinine POC Creatinine 3.9 H 3.9 H 4.1 H Glucose POC Glucose 107 H 110 H 129 H Uric Acid Calcium POC WB Ioniz Calcium 1.05 L Magnesium Alkaline Phosphatase Lactate Dehydrogenase Total Protein Albumin Albumin/Globulin Ratio Triglycerides 09/08/21 09/08/21 09/08/21 12:34 08:00 04:18 RBC Hgb Hct POC Hct 29 L 27 L MCV MCHC RDW MPV Lymph % (Auto) Lymph # (Auto) POC Sodium 155 H 157 H Sodium 154 H POC Potassium 5.3 H 5.3 H Potassium 5.7 H POC Chloride 128 H 128 H Chloride 126 H Carbon Dioxide 16 L POC Total CO2 18 L 19 L POC BUN 70 H 76 H BUN 71 H Creatinine 3.8 H POC Creatinine 4.2 H 4.3 H Glucose POC Glucose Uric Acid 9.4 H Calcium 7.9 L POC WB Ioniz Calcium 1.15 L Magnesium 2.6 H Alkaline Phosphatase Lactate Dehydrogenase 269 H Total Protein 5.7 L Albumin 3.0 L Albumin/Globulin Ratio Triglycerides 09/08/21 09/08/21 09/08/21 04:18 04:18 00:20 RBC 2.86 L Hgb 8.8 L Hct 28.9 L POC Hct 26 L 26 L MCV 101.0 H MCHC 30.4 L RDW 15.0 H MPV Lymph % (Auto) Lymph # (Auto) POC Sodium 158 H 161 H Sodium POC Potassium 5.2 H Potassium POC Chloride 130 H 131 H Chloride Carbon Dioxide POC Total CO2 18 L 18 L POC BUN 80 H 82 H BUN Creatinine POC Creatinine 4.4 H 4.5 H Glucose POC Glucose Uric Acid Calcium POC WB Ioniz Calcium Magnesium Alkaline Phosphatase Lactate Dehydrogenase Total Protein Albumin Albumin/Globulin Ratio Triglycerides 09/07/21 09/07/21 09/07/21 20:00 16:25 12:58 RBC Hgb Hct POC Hct 28 L 32 L 29 L MCV MCHC RDW MPV Lymph % (Auto) Lymph # (Auto) POC Sodium 164 H* 166 H* 166 H* Sodium 164 H* POC Potassium 5.2 H 5.9 H* 5.6 H Potassium 5.8 H POC Chloride 136 H 138 H 139 H Chloride 134 H Carbon Dioxide 17 L POC Total CO2 18 L 20 L 19 L POC BUN 87 H 91 H 90 H BUN 82 H Creatinine 4.3 H POC Creatinine 4.7 H 4.8 H 4.8 H Glucose POC Glucose Uric Acid Calcium 7.8 L POC WB Ioniz Calcium Magnesium Alkaline Phosphatase Lactate Dehydrogenase Total Protein Albumin Albumin/Globulin Ratio Triglycerides 09/07/21 12:24 RBC Hgb Hct POC Hct MCV MCHC RDW MPV Lymph % (Auto) Lymph # (Auto) POC Sodium Sodium 161 H* POC Potassium Potassium 5.4 H POC Chloride Chloride 133 H Carbon Dioxide 15 L POC Total CO2 POC BUN BUN 77 H Creatinine 4.0 H POC Creatinine Glucose POC Glucose Uric Acid Calcium 7.4 L POC WB Ioniz Calcium Magnesium Alkaline Phosphatase Lactate Dehydrogenase Total Protein Albumin Albumin/Globulin Ratio Triglycerides Meds: Medications Acetaminophen (Acetaminophen 325 Mg Tablet) 650 mg PO Q6HP PRN; Protocol PRN Reason: Per Pain Protocol/Fever > 101 Albuterol/Ipratropium (Ipratropium/Albuterol 3 Ml Ampul.Neb) 3 ml NEB Q4HP PRN PRN Reason: Shortness Of Breath Amlodipine Besylate (Amlodipine 5 Mg Tablet) 5 mg PO DAILY [facility] Last Admin: 09/10/21 10:05 Dose: Not Given Documented by: Chlorhexidine Gluconate (Chlorhexidine Gluconate 473 Ml Bottle) 60 ml TOPICAL UD [facility] Chlorhexidine Gluconate (Chlorhexidine Gluconate 1 Ml Oral.Joelle) 15 ml SWABMOUTH BID [facility] Last Admin: 09/10/21 09:13 Dose: Not Given Documented by: Collagenase (Collagenase Top Oint Tube 30gm) 1 dose TOPICAL DAILY [facility] Last Admin: 09/10/21 10:29 Dose: 1 dose Documented by: Dextrose (Dextrose 50% 50 Ml Vial) 0 ml IV UD PRN PRN Reason: Hypoglycemia Diagnostic Test (Pha) (Accu-Chek 1 Each Strip) 1 each FS [facility] Last Admin: 09/10/21 12:00 Dose: 1 each Documented by: Docusate Sodium (Docusate Sodium 100 Mg Capsule) 100 mg PO BID [facility] Last Admin: 09/10/21 09:12 Dose: Not Given Documented by: Famotidine (Famotidine/Pf 20 Mg/2 Ml Vial) 20 mg IV HS [facility] Last Admin: 09/09/21 21:22 Dose: 20 mg Documented by: Glucose (Dextrose 31 Gm Oral.Susp) 15 gm PO PRN PRN PRN Reason: Hypoglycemia Heparin Sodium (Porcine) (Heparin 5,000 Unit/Ml Vial) 5,000 unit SQ Q12 [facility] Last Admin: 09/10/21 08:34 Dose: 5,000 unit Documented by: Potassium Chloride 40 meq/ (Dextrose) 520 mls @ 130 mls/hr IV UD PRN PRN Reason: Potassium < 3 Magnesium Sulfate (Magnesium Sulfate) 2 gm in 50 mls @ 50 mls/hr IV UD PRN PRN Reason: Magnesium </= 1.6 Sodium Bicarbonate 100 meq/ (Dextrose) 1,000 mls @ 50 mls/hr IV Q20H [facility] Last Admin: 09/10/21 05:38 Dose: 50 mls/hr Documented by: Insulin Human Lispro (Insulin Lispro 1 Unit/0.01 Ml Unit) 0 unit SQ [facility]; Protocol Last Admin: 09/10/21 12:00 Dose: Not Given Documented by: Latanoprost (Latanoprost Ophth Drops 2.5ml Bottle) 1 gtt OU QPM [facility] Last Admin: 09/09/21 21:19 Dose: Not Given Documented by: Levothyroxine Sodium (Levothyroxine 50 Mcg Tablet) 50 mcg PO QAMAC [facility] Last Admin: 09/10/21 08:34 Dose: 50 mcg Documented by: Mupirocin (Mupirocin Oint 2% 22gm) 1 dose NARES BID [facility] Last Admin: 09/10/21 09:06 Dose: 1 dose Documented by: Ondansetron HCl (Ondansetron 4 Mg/2 Ml Vial) 4 mg IV Q4HP PRN PRN Reason: Nausea And Vomiting Polyethylene Glycol (Polyethylene Glycol 3350 17 Gm Packet) 17 gm PO DAILYP PRN PRN Reason: Constipation Potassium Chloride (Potassium Chloride 20 Meq Tablet) 40 meq PO UD PRN PRN Reason: Potssium is 3-3.5 Potassium Chloride (Potassium Chloride 20 Meq Tablet) 40 meq PO UD PRN PRN Reason: Potassium < 3 Senna (Sennosides 1 Tablet) 2 tab PO DAILYP PRN PRN Reason: Constipation Sodium Chloride (0.9 % Sodium Chloride 10 Ml Syringe) 10 ml IV Q8 [facility] Last Admin: 09/10/21 05:32 Dose: Not Given Documented by: A/P Assessment and plan (1) Decubitus ulcer of coccyx, stage 2: Status: Acute (2) Acute delirium: Status: Acute (3) Acute hypernatremia: Status: Acute (4) Acute hyperkalemia: Status: Acute (5) Acute UTI: Status: Acute (6) Acute kidney injury with acute tubular necrosis: Status: Acute (7) Bacteremia: Status: Acute Narrative A/P Narrative: A/P Narrative: A: *Dehydration/hypernatremia(likely chronic,>48hrs)/hyperchloremia: -water deficit 2.7 *Volume depletion: improving *Hyperkalemia: *Non-gap Met Acidosis: *HARRIET on CKD IV: improving *UTI (GNB): *Encephalopathy: 2/2 above, multifactorial superimposed on underlying dementia -suspect back to baseline *Alzheimer's dementia, advanced: *Anemia(macro), chronic: *HTN: on norvasc *Hypothyroidism: *GERD: *Coccyx stage 2 decubitus ulcers X2 *S aureus bacteremia: DDx: skin contaminant P: -D5W change to D5 1/2NS (seems to be quite a discrepancy between POC sodium and lab sodium) -serial chemistry -monitor UOP -f/u renal fxn -Rocephin pending UC -cont home norvasc -PT/OT -ppx: Heparin -continue routine wound care -will conduct bedside care conference with son this afternoon regarding poor prognosis and goal of care with possibility to switch to comfort care measures only -repeat blood culture X2 on 09/09, no growth to date DNR Time Spent With Patient Time: Total time spent is greater than 50% in coordination of care (as documented) at patient's floor/unit and/or counseling patient: Total time spent with greater than 50% in coordination of care (as documented) at patient's floor/unit and/or counseling patient:: Greater than 35 minutes QUALITY VTE Deep Vein Thrombosis/Pulmonary Embolism Present on Admission: No
[2021-09-10] MEDS: ACETAMINOPHEN 325 MG TABLET PO PRN (19:25)
[2021-09-10] MEDS: FAMOTIDINE/PF 20 MG/2 ML VIAL IV SCH (21:17)
[2021-09-10] MEDS: LATANOPROST OPHTH DROPS 2.5ML BOTTLE OU SCH (21:18)
[2021-09-11] MEDS: SODIUM BICARBONATE VIAL 100 MEQ in DEXTROSE 5% IN WATER 900 ML IV SCH (02:26)
[2021-09-11] MEDS: 0.9 % SODIUM CHLORIDE 10 ML SYRINGE IV SCH ×3 (04:14→20:57)
[2021-09-11 07:54] LABS: Basophils # (Auto) 0.02 K/mcL (0.00-0.30); Basophils % (Auto) 0.3 % (0.0-2.0); Eosinophils # (Auto) 0.46 K/mcL (0.00-0.70); Eosinophils % (Auto) 6.2 % (0.0-7.0); Hematocrit 30.1 % (34.1-44.9); Hemoglobin 9.7 g/dL (11.2-15.7); Lymphocytes # (Auto) 1.19 K/mcL (1.50-4.80); Lymphocytes % (Auto) 16.1 % (15.5-49.0); Mean Cell Volume 94.1 fL (80.0-100.0); Mean Corpuscular HGB Conc 32.2 g/dL (31.0-36.0); Mean Platelet Volume 10.5 fL (7.4-10.4); Monocytes # (Auto) 0.65 K/mcL (0.10-0.90); Monocytes % (Auto) 8.8 % (1.0-12.0); Neutrophils % (Auto) 68.6 % (38.0-78.0); Platelet Count 259 K/mcL (140-440); WBC 7.4 K/mcL (4.5-11.0)
[2021-09-11] MEDS: INSULIN LISPRO 1 UNIT/0.01 ML UNIT SQ SCH ×3 (08:51→17:15)
[2021-09-11] MEDS: HEPARIN 5,000 UNIT/ML VIAL SQ SCH ×2 (08:52→21:02)
[2021-09-11] MEDS: DOCUSATE SODIUM 100 MG CAPSULE PO SCH ×2 (08:52→20:56)
[2021-09-11] MEDS: amLODIPine 5 MG TABLET PO SCH (08:52)
[2021-09-11] MEDS: LEVOTHYROXINE 50 MCG TABLET PO SCH (08:52)
[2021-09-11] MEDS: COLLAGENASE TOP OINT TUBE 30GM TOPICAL SCH (09:26)
[2021-09-11 10:14] LABS: ALT/SGPT 9 U/L (<40); AST/SGOT 16 U/L (<32); Albumin 2.7 gm/dL (3.2-5.2); Albumin/Globulin Ratio 0.9 (1.0-2.3); Alkaline Phosphatase 126 U/L (39-117); Bilirubin,Total 0.2 mg/dL (0.1-1.0); Blood Urea Nitrogen 59 mg/dL (8-23); Calcium 7.6 mg/dL (8.6-10.4); Carbon Dioxide 23 mmol/L (22-30); Chloride 104 mmol/L (96-108); Glomerular Filtration Rate 13; Glucose 99 mg/dL (70-105)
--- NOTE | 2021-09-11 10:51 | Nephrology Progress Note ---
SUBJECTIVE Subjective Patient information: Note initiated : 09/11/21 at 10:50 am Patient: Marie Pinon 86 y/o F admitted on 09/07/21 for Possible UTI or Septic Hip. Chief Complaint: Altered Principal diagnosis: UTI Pertinent ROS: Dementia Weakness Enriquez catheter with clear urine Constitutional Vitals: Vital Signs Temp Pulse Resp BP Pulse Ox 97.3 F 70 16 118/52 93 09/11/21 07:55 09/11/21 07:55 09/11/21 07:55 09/11/21 07:55 09/11/21 07:55 Period Temp Pulse Resp BP Sys/Tom Pulse Ox Last 24 Hr 97.3 F-100.2 F 70-97 14-18 102-128/52-76 93-99 Intake and Output 09/10/21 09/11/21 09/11/21 21:59 05:59 13:59 Intake Total 240 1480 240 Output Total 500 450 250 Balance -260 1030 -10 Weight 128 lb 4.8 oz Intake & Output: Intake & Output 09/10/21 09/11/21 09/11/21 21:59 05:59 13:59 Intake Total 240 1480 240 Output Total 500 450 250 Balance -260 1030 -10 Weight 128 lb 4.8 oz Intake: Nourishment/Supplement quantity 240 240 (ml) IV 1000 Sodium Bicarbonate Vial 100 Meq 1000 In Dextrose 5% in Water 900 ml @ 50 mls/hr IV Q20H [facility] Rx#: [id number] Oral 480 Output: Urine Catheter Amount 500 450 250 Other: Meal Dinner Breakfast Percent of Meal Consumed 100% 100% Feeding Ability Total Assistance Total Assistance Nourishment/Supplement name Ensure Ensure Urine Appearance Clear Clear Clear Urine Color Bright Yellow Pale Bright Yellow Urine Odor Normal Normal General appearance: cooperative and no acute distress Head Head exam: Present normal inspection Eye Eye exam: Present normal appearance ENT ENT exam: Present mucous membranes moist Respiratory Respiratory exam: Absent respiratory distress Cardiovascular Cardiovascular exam: Present normal rate and rhythm GI/Abdominal GI/Abdominal exam: Present soft; Absent tenderness Extremities Exam Extremities exam: Absent joint swelling or pedal edema Neurological Exam Neurological exam: Present alert and altered Psychiatric Psychiatric exam: Present normal affect and normal mood Skin Skin exam: Present warm; Absent rash A/P Assessment and plan (1) Acute kidney injury with acute tubular necrosis: Assessment and plan: Marie Pinon is a 86-year-old female with dementia, hypertension, chronic kidney disease, hypothyroidism presented to [facility] ED from [facility] on 09/07/20 for worsening mental status. Baseline serum creatinine: 6.6 to 7.3 in June to July 242019 then 3.9-4.8 in July 262019. Nephrology consultation was requested for acute kidney injury. Acute kidney injury, likely acute tubular necrosis associated with prolonged dehydration and acute cystitis with initial hyperkalemia, metabolic acidosis and hypernatremia, present on arrival, improving. Suspected chronic kidney disease. Hypernatremia, resolved. Metabolic acidosis, resolved. Hyperkalemia, persistent. Work up: Urinalysis on 09/07/20: Yellow, turbid, pH 7.0, SG 1.013, protein 100, blood 0.03, leukocyte esterase 500, urine WBC >182. Treatment: Sodium Bicarbonate 100 mEq in 1L D5W at 50 ml/hour. Progress: Serum creatinine changed from 2.9 to 3.1 in the past 24 hours. Baseline serum creatinine: 6.6 to 7.3 in June to July 242019 then 3.9-4.8 in July 262019. Urine output: 950 ml reported in the past 24 hours. Metabolic acidosis, resolved. Hyperkalemia, persistent. Fluid status: I/O: +7.5 L since admission. Prognosis is poor. This has been discussed with the family. They decided for no invasive procedures, dialysis or transfer out of town. Recommendations/Plan: Sodium Bicarbonate 100 mEq in 1L D5W at 50 ml/hour changed to D5LR at 50 ml/hour. She will need oral intake monitoring after discharge. Status: Acute (2) Hypernatremia: Status: Acute (3) Hyperkalemia: Status: Acute (4) Metabolic acidosis: Status: Acute Time Spent With Patient Time: Total time spent is greater than 50% in coordination of care (as documented) at patient's floor/unit and/or counseling patient:
[2021-09-11] MEDS ORDERED: DEXTROSE 5%-LR 1,000 ML IV SCH (11:00)
[2021-09-11] MEDS: CHLORHEXIDINE GLUCONATE 1 ML ORAL.SOL SWABMOUTH SCH ×2 (11:43→21:02)
[2021-09-11] MEDS: 0.9 % SODIUM CHLORIDE 1,000 ML IV SCH (11:44)
[2021-09-11] MEDS: MUPIROCIN OINT 2% 22GM NARES SCH ×2 (11:44→21:02)
--- NOTE | 2021-09-11 14:10 | Internal Med Progress Note ---
SUBJECTIVE Subjective Patient information: Note initiated : 09/11/21 at 2:10 pm Service Date, if different from initiated Date: [] Patient: Marie Pinon 86 y/o F admitted on 09/07/21 for Possible UTI or Septic Hip. Chief Complaint: [] Principal diagnosis: UTI Interval history: History of present illness: Ms. Pinon is a 86 year old F Patient with a history of Alzheimer's dementia advanced brought in from [facility]. History is obtained from chart as unable to gather history from patient given her dementia and current state. She was brought in for decreased level of consciousness over the past few days. In the ED she was worked up she is found to have a sodium of 161 and potassium of 6.2 without any EKG changes. Her very hyperchloremic. BUN is 98 creatinine 4.5. He also was diagnosed with a UTI. Case discussed with medical corps officer regarding her case is stated could be possible that she could need dialysis. This was discussed with family who stated patient is a DNR and that she would not want dialysis. Patient will be treated at [facility] and if she declines her renal function does not improve likely transition to comfort care. 09/08 Sodium coming down appropriately. Mentation improved and that she is alert but pleasantly confused and I suspect at baseline. 09/09 Sodium improving. Although quite a discrepancy between the [id number] sodium in the lab sodium. Patient mentation likely at baseline 09/10: Family, son, has questions regarding prognosis and goal of care. Will conduct bedside care conference with possibility of switching to comfort care only. 09/11: Family decided to continue current treatments over the weekend. Patient remains nonverbal. Ate most of her food with feeding. Serum sodium 137, potassium 5.4. BUN/Cr 49/2.9-->59/3.1. Good urine output with urine output of 950ml over the last 24 hours. Pertinent ROS: Not obtained due to clinical situations Constitutional Vitals: Vital Signs Temp Pulse Resp BP Pulse Ox 37.0 C 73 18 124/71 94 09/11/21 11:54 09/11/21 11:54 09/11/21 11:54 09/11/21 11:54 09/11/21 11:54 Period Temp Pulse Resp BP Sys/Tom Pulse Ox Last 24 Hr 36.3 C-37.9 C 70-97 15-18 102-128/52-76 93-99 Intake and Output 09/11/21 09/11/21 09/11/21 05:59 13:59 21:59 Intake Total 1480 706 Output Total 450 250 Balance 1030 456 Weight 58.196 kg Patient Weight 09/12/21 05:59 Weight 58.196 kg Intake & Output: Intake & Output 09/11/21 09/11/21 09/11/21 05:59 13:59 21:59 Intake Total 1480 706 Output Total 450 250 Balance 1030 456 Weight 58.196 kg Intake: Nourishment/Supplement quantity 240 (ml) IV 1000 466 Sodium Bicarbonate Vial 100 Meq 1000 466 In Dextrose 5% in Water 900 ml @ 50 mls/hr IV Q20H [facility] Rx#: [id number] Oral 480 Output: Urine Catheter Amount 450 250 Other: Meal Breakfast Percent of Meal Consumed 100% Feeding Ability Total Assistance Nourishment/Supplement name Ensure Urine Appearance Clear Clear Urine Color Pale Bright Yellow Urine Odor Normal Stool Size Copious Stool Color Green Black Stool Consistency Soft # Bowel Movements 1 # of times incontinent of 1 Bowels General appearance: disheveled; no cooperative Exam: altered Head Head exam: Present atraumatic and normal inspection Eye Eye exam: Present normal appearance ENT ENT exam: Present mucous membranes moist, normal exam and normal external ear exam Neck Neck exam: Present normal inspection Respiratory Respiratory exam: Present normal respiratory exam Cardiovascular Cardiovascular exam: Present normal rate and rhythm GI/Abdominal GI/Abdominal exam: Present normal bowel sounds Back Exam Back exam: Present normal inspection Neurological Exam Neurological exam: Present altered; Absent oriented X3 Additional comments: orientation cannot be assessed due to clinical situations Skin Skin exam: Present warm; Absent intact Additional comments: coccyx, hip, and heel decubitus ulcer, some of them unstagable OBJ DATA Labs CBC & Chem 7: 09/11/21 06:24 09/11/21 08:00 Labs: Abnormal Lab Results 09/11/21 09/11/21 09/10/21 08:00 06:24 06:00 RBC 3.20 L Hgb 9.7 L Hct 30.1 L POC Hct MCV MCHC RDW MPV 10.5 H Lymph % (Auto) Lymph # (Auto) 1.19 L POC Sodium POC Potassium Potassium 5.4 H 5.3 H POC Chloride Chloride 110 H Carbon Dioxide 19 L POC Total CO2 POC BUN BUN 59 H 49 H Creatinine 3.1 H 2.9 H POC Creatinine Glucose 109 H POC Glucose Uric Acid Calcium 7.6 L 8.1 L POC WB Ioniz Calcium Alkaline Phosphatase 126 H 141 H Lactate Dehydrogenase Total Protein 5.7 L Albumin 2.7 L 3.0 L Albumin/Globulin Ratio 0.9 L 0.9 L Triglycerides 09/10/21 09/09/21 09/09/21 06:00 19:02 13:02 RBC 3.45 L Hgb 10.4 L Hct 33.5 L POC Hct 30 L 32 L MCV MCHC RDW MPV Lymph % (Auto) 12.9 L Lymph # (Auto) 1.05 L POC Sodium POC Potassium 5.3 H 5.2 H Potassium POC Chloride 115 H 118 H Chloride Carbon Dioxide POC Total CO2 19 L 16 L POC BUN 51 H 52 H BUN Creatinine POC Creatinine 3.4 H 3.6 H Glucose POC Glucose 112 H 130 H Uric Acid Calcium POC WB Ioniz Calcium 1.10 L 1.15 L Alkaline Phosphatase Lactate Dehydrogenase Total Protein Albumin Albumin/Globulin Ratio Triglycerides 09/09/21 09/09/21 09/09/21 05:48 05:48 05:48 RBC 3.30 L Hgb 9.9 L Hct 33.1 L POC Hct 28 L MCV 100.3 H MCHC 29.9 L RDW 14.6 H MPV 10.8 H Lymph % (Auto) 12.1 L Lymph # (Auto) 1.17 L POC Sodium 146 H POC Potassium 5.2 H Potassium 5.4 H POC Chloride 123 H Chloride 114 H Carbon Dioxide 16 L POC Total CO2 18 L POC BUN 63 H BUN 58 H Creatinine 3.3 H POC Creatinine 3.9 H Glucose POC Glucose 107 H Uric Acid 8.2 H Calcium 8.2 L POC WB Ioniz Calcium 1.05 L Alkaline Phosphatase 126 H Lactate Dehydrogenase 263 H Total Protein Albumin 3.0 L Albumin/Globulin Ratio 0.9 L Triglycerides 174 H 09/09/21 09/08/21 00:18 18:07 RBC Hgb Hct POC Hct 29 L 29 L MCV MCHC RDW MPV Lymph % (Auto) Lymph # (Auto) POC Sodium 150 H 152 H POC Potassium Potassium POC Chloride 123 H 125 H Chloride Carbon Dioxide POC Total CO2 17 L 18 L POC BUN 62 H 67 H BUN Creatinine POC Creatinine 3.9 H 4.1 H Glucose POC Glucose 110 H 129 H Uric Acid Calcium POC WB Ioniz Calcium Alkaline Phosphatase Lactate Dehydrogenase Total Protein Albumin Albumin/Globulin Ratio Triglycerides Meds: Medications Acetaminophen (Acetaminophen 325 Mg Tablet) 650 mg PO Q6HP PRN; Protocol PRN Reason: Per Pain Protocol/Fever > 101 Last Admin: 09/10/21 19:25 Dose: 650 mg Documented by: Albuterol/Ipratropium (Ipratropium/Albuterol 3 Ml Ampul.Neb) 3 ml NEB Q4HP PRN PRN Reason: Shortness Of Breath Amlodipine Besylate (Amlodipine 5 Mg Tablet) 5 mg PO DAILY [facility] Last Admin: 09/11/21 08:52 Dose: Not Given Documented by: Chlorhexidine Gluconate (Chlorhexidine Gluconate 473 Ml Bottle) 60 ml TOPICAL U D [facility] Chlorhexidine Gluconate (Chlorhexidine Gluconate 1 Ml Oral.Joelle) 15 ml SWABMOUTH BID [facility] Last Admin: 09/11/21 11:43 Dose: 15 ml Documented by: Collagenase (Collagenase Top Oint Tube 30gm) 1 dose TOPICAL DAILY [facility] Last Admin: 09/11/21 09:26 Dose: 1 dose Documented by: Dextrose (Dextrose 50% 50 Ml Vial) 0 ml IV UD PRN PRN Reason: Hypoglycemia Diagnostic Test (Pha) (Accu-Chek 1 Each Strip) 1 each FS AC [facility] Last Admin: 09/11/21 11:43 Dose: 1 each Documented by: Docusate Sodium (Docusate Sodium 100 Mg Capsule) 100 mg PO BID [facility] Last Admin: 09/11/21 08:52 Dose: Not Given Documented by: Famotidine (Famotidine/Pf 20 Mg/2 Ml Vial) 20 mg IV HS [facility] Last Admin: 09/10/21 21:17 Dose: 20 mg Documented by: Glucose (Dextrose 31 Gm Oral.Susp) 15 gm PO PRN PRN PRN Reason: Hypoglycemia Heparin Sodium (Porcine) (Heparin 5,000 Unit/Ml Vial) 5,000 unit SQ Q12 [facility] Last Admin: 09/11/21 08:52 Dose: 5,000 unit Documented by: Potassium Chloride 40 meq/ (Dextrose) 520 mls @ 130 mls/hr IV UD PRN PRN Reason: Potassium < 3 Magnesium Sulfate (Magnesium Sulfate) 2 gm in 50 mls @ 50 mls/hr IV UD PRN PRN Reason: Magnesium </= 1.6 Sodium Chloride (Sodium Chloride 0.9%) 1,000 mls @ 50 mls/hr IV .Q20H [facility] Last Admin: 09/11/21 11:44 Dose: 50 mls/hr Documented by: Insulin Human Lispro (Insulin Lispro 1 Unit/0.01 Ml Unit) 0 unit SQ AC [facility]; Protocol Last Admin: 09/11/21 11:43 Dose: Not Given Documented by: Latanoprost (Latanoprost Ophth Drops 2.5ml Bottle) 1 gtt OU QPM [facility] Last Admin: 09/10/21 21:18 Dose: Not Given Documented by: Levothyroxine Sodium (Levothyroxine 50 Mcg Tablet) 50 mcg PO QAMAC [facility] Last Admin: 09/11/21 08:52 Dose: Not Given Documented by: Mupirocin (Mupirocin Oint 2% 22gm) 1 dose NARES BID [facility] Last Admin: 09/11/21 11:44 Dose: 1 dose Documented by: Ondansetron HCl (Ondansetron 4 Mg/2 Ml Vial) 4 mg IV Q4HP PRN PRN Reason: Nausea And Vomiting Polyethylene Glycol (Polyethylene Glycol 3350 17 Gm Packet) 17 gm PO DAILYP PRN PRN Reason: Constipation Potassium Chloride (Potassium Chloride 20 Meq Tablet) 40 meq PO UD PRN PRN Reason: Potssium is 3-3.5 Potassium Chloride (Potassium Chloride 20 Meq Tablet) 40 meq PO UD PRN PRN Reason: Potassium < 3 Senna (Sennosides 1 Tablet) 2 tab PO DAILYP PRN PRN Reason: Constipation Sodium Chloride (0.9 % Sodium Chloride 10 Ml Syringe) 10 ml IV Q8 [facility] Last Admin: 09/11/21 04:14 Dose: Not Given Documented by: A/P Assessment and plan (1) Decubitus ulcer of coccyx, stage 2: Status: Acute (2) Acute delirium: Status: Acute (3) Acute hypernatremia: Status: Acute (4) Acute hyperkalemia: Status: Acute (5) Acute UTI: Status: Acute (6) Acute kidney injury with acute tubular necrosis: Status: Acute (7) Bacteremia: Status: Acute Narrative A/P Narrative: A/P Narrative: A: *Dehydration/hyperkalemia/hyperchloremia: *Volume depletion: improving *Non-gap Met Acidosis: *HARRIET on CKD IV: worsening *UTI (GNB): *Encephalopathy: 2/2 above, multifactorial superimposed on underlying dementia -suspect back to baseline *Alzheimer's dementia, advanced: *Anemia(macro), chronic: *HTN: on norvasc *Hypothyroidism: *GERD: *Coccyx, hip, and heel decubitus ulcers *S aureus bacteremia: DDx: skin contaminant P: -Bicarb drip sodium bicarb 100Meq in 1L D5W@50cc/hr -NS@50cc/hr instead of D5LR due to increasing serum potassium level -serial chemistry -monitor UOP -f/u renal fxn -Rocephin pending UC -cont home norvasc -PT/OT -ppx: Heparin -continue routine wound care -family decided to continue current treatments throughout the weekend. Will retouch base with them on Tuesday to update them on her prognosis and goal of care -repeat blood culture X2 on 09/09, no growth to date DNR Time Spent With Patient Time: Total time spent is greater than 50% in coordination of care (as documented) at patient's floor/unit and/or counseling patient: Total time spent with greater than 50% in coordination of care (as documented) at patient's floor/unit and/or counseling patient:: Greater than 35 minutes QUALITY VTE Deep Vein Thrombosis/Pulmonary Embolism Present on Admission: No
[2021-09-11] MEDS: LATANOPROST OPHTH DROPS 2.5ML BOTTLE OU SCH (20:57)
[2021-09-11] MEDS: FAMOTIDINE/PF 20 MG/2 ML VIAL IV SCH (21:02)
[2021-09-12] MEDS: 0.9 % SODIUM CHLORIDE 10 ML SYRINGE IV SCH ×3 (05:16→21:12)
[2021-09-12] MEDS: 0.9 % SODIUM CHLORIDE 1,000 ML IV SCH (07:25)
[2021-09-12] MEDS: LEVOTHYROXINE 50 MCG TABLET PO SCH (07:25)
[2021-09-12 07:26] LABS: Basophils # (Auto) 0.02 K/mcL (0.00-0.30); Basophils % (Auto) 0.3 % (0.0-2.0); Eosinophils # (Auto) 0.43 K/mcL (0.00-0.70); Eosinophils % (Auto) 5.7 % (0.0-7.0); Hematocrit 29.1 % (34.1-44.9); Hemoglobin 9.2 g/dL (11.2-15.7); Lymphocytes % (Auto) 14.7 % (15.5-49.0); Mean Cell Volume 96.4 fL (80.0-100.0); Mean Corpuscular HGB Conc 31.6 g/dL (31.0-36.0); Monocytes # (Auto) 0.66 K/mcL (0.10-0.90); Monocytes % (Auto) 8.8 % (1.0-12.0); Neutrophils % (Auto) 70.5 % (38.0-78.0); Platelet Count 225 K/mcL (140-440); RBC 3.02 M/mcL (3.59-5.38); Red Cell Distribution Width 13.8 % (11.5-14.5); WBC 7.5 K/mcL (4.5-11.0)
[2021-09-12] MEDS: INSULIN LISPRO 1 UNIT/0.01 ML UNIT SQ SCH ×3 (07:27→17:23)
[2021-09-12 07:30] LABS: ALT/SGPT 11 U/L (<40); AST/SGOT 21 U/L (<32); Albumin 2.5 gm/dL (3.2-5.2); Albumin/Globulin Ratio 0.8 (1.0-2.3); Alkaline Phosphatase 122 U/L (39-117); Bilirubin,Total < 0.2 mg/dL (0.1-1.0); Blood Urea Nitrogen 68 mg/dL (8-23); Calcium 7.6 mg/dL (8.6-10.4); Carbon Dioxide 22 mmol/L (22-30); Chloride 107 mmol/L (96-108); Glomerular Filtration Rate 13; Glucose 92 mg/dL (70-105)
--- NOTE | 2021-09-12 07:57 | Nephrology Progress Note ---
SUBJECTIVE Subjective Patient information: Note initiated : 09/12/21 at 7:49 am Patient: Marie Pinon 86 y/o F admitted on 09/07/21 for Possible UTI or Septic Hip. Chief Complaint: Altered Principal diagnosis: UTI Pertinent ROS: Altered mental status (chronic) Weakness Enriquez catheter with clera urine Constitutional Vitals: Vital Signs Temp Pulse Resp BP Pulse Ox 98.4 F 73 16 127/53 96 09/12/21 04:00 09/12/21 04:00 09/12/21 04:00 09/12/21 04:00 09/12/21 04:00 Period Temp Pulse Resp BP Sys/Tom Pulse Ox Last 24 Hr 97.3 F-99.9 F 70-103 16-18 114-127/50-75 93-98 Intake and Output 09/11/21 09/12/21 09/12/21 21:59 05:59 13:59 Intake Total 240 984 Output Total 400 250 Balance -160 -250 984 Weight 135 lb 6.4 oz Intake & Output: Intake & Output 09/11/21 09/12/21 09/12/21 21:59 05:59 13:59 Intake Total 240 984 Output Total 400 250 Balance -160 -250 984 Weight 135 lb 6.4 oz Intake: Nourishment/Supplement quantity 240 (ml) IV 984 Sodium Chloride 0.9% 1,000 ml @ 984 50 mls/hr IV .Q20H [facility] Rx#: [id number] Output: Urine Catheter Amount 400 Void Amount 250 Other: Meal Dinner Percent of Meal Consumed 100% Feeding Ability Total Assistance Nourishment/Supplement name Ensure Urine Appearance Clear Uretheral (Enriquez) Cloudy Urine Color Bright Yellow Bright Yellow Uretheral (Enriquez) Bright Yellow Stool Size Small Stool Color Brown Stool Consistency Formed # of times incontinent of 1 Bowels General appearance: no acute distress Head Head exam: Present atraumatic and normal inspection Eye Eye exam: Present normal appearance ENT ENT exam: Present mucous membranes moist Neck Neck exam: Present normal inspection Respiratory Respiratory exam: Present normal respiratory exam Cardiovascular Cardiovascular exam: Present normal rate and rhythm Back Exam Back exam: Present normal inspection Neurological Exam Neurological exam: Present alert and altered Psychiatric Psychiatric exam: Present normal mood Skin Skin exam: Present intact and warm A/P Assessment and plan (1) Acute kidney injury with acute tubular necrosis: Assessment and plan: Marie Pinon is a 86-year-old female with dementia, hypertension, chronic kidney disease, hypothyroidism presented to [facility] ED from [facility] on 09/07/20 for worsening mental status. Baseline serum creatinine: 6.6 to 7.3 in June to July 242019 then 3.9-4.8 in July 26 to 2019. Nephrology consultation was requested for acute kidney injury. Acute kidney injury, likely acute tubular necrosis associated with prolonged dehydration and acute cystitis with initial hyperkalemia, metabolic acidosis and hypernatremia, present on arrival, improved. Suspected chronic kidney disease stage 4-5. Hypernatremia, resolved. Metabolic acidosis, resolved. Hyperkalemia, persistent. Work up: Urinalysis on 09/07/20: Yellow, turbid, pH 7.0, SG 1.013, protein 100, blood 0.03, leukocyte esterase 500, urine WBC >182. Progress: Serum creatinine improved from initial 4.5 to 3.0 (eGFR 13) since admission in the past 5 days. Previous serum creatinine: 6.6 to 7.3 in June to July 242019 then 3.9-4.8 in July 26 to 2019. Urine output: 900 ml reported in the past 24 hours. Fluid status: I/O: +8.5 L since admission. Weight: + 15 lb since admission. Prognosis is poor. This has been discussed with the family. They decided for no invasive procedures, dialysis or transfer out of town. Recommendations/Plan: Hospice/comfort care recommended. Oral fluid intake monitoring after discharge if not on hospice/comfort care. Dr. Tan will take over on 09/13/21. Please call if follow up needed. Status: Acute (2) Hypernatremia: Status: Acute (3) Hyperkalemia: Status: Acute (4) Metabolic acidosis: Status: Acute Time Spent With Patient Time: Total time spent is greater than 50% in coordination of care (as documented) at patient's floor/unit and/or counseling patient:
[2021-09-12] MEDS: HEPARIN 5,000 UNIT/ML VIAL SQ SCH ×2 (09:11→21:11)
[2021-09-12] MEDS: MUPIROCIN OINT 2% 22GM NARES SCH ×2 (09:11→21:11)
[2021-09-12] MEDS: DOCUSATE SODIUM 100 MG CAPSULE PO SCH ×2 (09:11→21:11)
[2021-09-12] MEDS: CHLORHEXIDINE GLUCONATE 1 ML ORAL.SOL SWABMOUTH SCH ×2 (09:12→21:11)
[2021-09-12] MEDS: amLODIPine 5 MG TABLET PO SCH (09:12)
[2021-09-12] MEDS: COLLAGENASE TOP OINT TUBE 30GM TOPICAL SCH (09:13)
--- NOTE | 2021-09-12 12:41 | General Surgery Progress Note ---
SUBJECTIVE Subjective Patient information: Note initiated : 09/12/21 at 12:38 pm Service Date, if different from initiated Date: [] Patient: Marie Pinon 86 y/o F admitted on 09/07/21 for Possible UTI or Septic Hip. Chief Complaint: [] Principal diagnosis: UTI Constitutional Vitals: Vital Signs Temp Pulse Resp BP Pulse Ox 99.0 F 73 16 127/53 98 09/12/21 12:00 09/12/21 12:00 09/12/21 12:00 09/12/21 12:00 09/12/21 12:00 Period Temp Pulse Resp BP Sys/Tom Pulse Ox Last 24 Hr 97.7 F-99.9 F 73-103 12-18 114-137/50-75 93-98 Intake and Output 09/11/21 09/12/21 09/12/21 21:59 05:59 13:59 Intake Total 240 984 Output Total 400 250 Balance -160 -250 984 Weight 135 lb 6.4 oz Intake & Output: Intake & Output 09/11/21 09/12/21 09/12/21 21:59 05:59 13:59 Intake Total 240 984 Output Total 400 250 Balance -160 -250 984 Weight 135 lb 6.4 oz Intake: Nourishment/Supplement quantity 240 (ml) IV 984 Sodium Chloride 0.9% 1,000 ml @ 984 50 mls/hr IV .Q20H [facility] Rx#: [id number] Output: Urine Catheter Amount 400 Void Amount 250 Other: Meal Dinner Percent of Meal Consumed 100% Feeding Ability Total Assistance Nourishment/Supplement name Ensure Urine Appearance Clear Uretheral (Enriquez) Cloudy Urine Color Bright Yellow Bright Yellow Uretheral (Enriquez) Bright Yellow Stool Size Small Stool Color Brown Stool Consistency Formed # of times incontinent of 1 Bowels A/P Narrative A/P Narrative: Saw patient and reviewed progress notes and developments. Assessment: Multiple systemic issues. Poor prognosis. No changes / improvements skin PU sacral region. Plan: Continue ongoing palliative skin and wound care. Nothing further to add. Will sign off. Spoke with Dr. LEE, Hospitalist Physician and Caroline HUMPHRIES Time Spent With Patient Time: Total time spent is greater than 50% in coordination of care (as documented) at patient's floor/unit and/or counseling patient:
[2021-09-12] MEDS ORDERED: FUROSEMIDE 40 MG/4 ML VIAL IV ONE (14:39)
--- NOTE | 2021-09-12 14:44 | Internal Med Progress Note ---
SUBJECTIVE Subjective Patient information: Note initiated : 09/12/21 at 2:40 pm Service Date, if different from initiated Date: [] Patient: Marie Pinon 86 y/o F admitted on 09/07/21 for Possible UTI or Septic Hip. Chief Complaint: [] Principal diagnosis: UTI Interval history: History of present illness: Ms. Pinon is a 86 year old F Patient with a history of Alzheimer's dementia advanced brought in from [facility]. History is obtained from chart as unable to gather history from patient given her dementia and current state. She was brought in for decreased level of consciousness over the past few days. In the ED she was worked up she is found to have a sodium of 161 and potassium of 6.2 without any EKG changes. Her very hyperchloremic. BUN is 98 creatinine 4.5. He also was diagnosed with a UTI. Case discussed with electronic data processing auditor regarding her case is stated could be possible that she could need dialysis. This was discussed with family who stated patient is a DNR and that she would not want dialysis. Patient will be treated at [facility] and if she declines her renal function does not improve likely transition to comfort care. 09/08 Sodium coming down appropriately. Mentation improved and that she is alert but pleasantly confused and I suspect at baseline. 09/09 Sodium improving. Although quite a discrepancy between the [id number] sodium in the lab sodium. Patient mentation likely at baseline 09/10: Family, son, has questions regarding prognosis and goal of care. Will conduct bedside care conference with possibility of switching to comfort care only. 09/11: Family decided to continue current treatments over the weekend. Patient remains nonverbal. Ate most of her food with feeding. Serum sodium 137, potassium 5.4. BUN/Cr 49/2.9-->59/3.1. Good urine output with urine output of 950ml over the last 24 hours. 09/12: Serum potassium 5.4-->5.6. Serum Cr level 3.1-->3.0. Patient remains nonverbal. On room air. Ate most of her food with feeding. Family decided to continue current treatments over the weekend. Pertinent ROS: Nonverbal Constitutional Vitals: Vital Signs Temp Pulse Resp BP Pulse Ox 37.2 C 73 16 127/53 98 09/12/21 12:00 09/12/21 12:00 09/12/21 12:00 09/12/21 12:00 09/12/21 12:00 Period Temp Pulse Resp BP Sys/Tom Pulse Ox Last 24 Hr 36.5 C-37.7 C 73-103 12-18 114-137/50-75 93-98 Intake and Output 09/12/21 09/12/21 09/12/21 05:59 13:59 21:59 Intake Total 984 Output Total 250 Balance -250 984 Intake & Output: Intake & Output 09/12/21 09/12/21 09/12/21 05:59 13:59 21:59 Intake Total 984 Output Total 250 Balance -250 984 Intake: IV 984 Sodium Chloride 0.9% 1,000 ml @ 984 50 mls/hr IV .Q20H [facility] Rx#: [id number] Output: Void Amount 250 Other: Urine Appearance Clear Urine Color Bright Yellow General appearance: average body habitus, disheveled and no acute distress; no cooperative Exam: altered Head Head exam: Present atraumatic and normal inspection Eye Eye exam: Present normal appearance ENT ENT exam: Present mucous membranes moist, normal exam and normal external ear exam Neck Neck exam: Present normal inspection Respiratory Respiratory exam: Present normal respiratory exam Cardiovascular Cardiovascular exam: Present normal rate and rhythm GI/Abdominal GI/Abdominal exam: Present normal bowel sounds Back Exam Back exam: Present normal inspection Neurological Exam Neurological exam: Present alert and oriented X3 Skin Skin exam: Present warm; Absent intact Additional comments: multiple decubitus ulcers hip, heel, and coccyx OBJ DATA Labs CBC & Chem 7: 09/12/21 05:09 09/12/21 05:08 Labs: Abnormal Lab Results 09/12/21 09/12/21 09/11/21 05:09 05:08 08:00 RBC 3.02 L Hgb 9.2 L Hct 29.1 L POC Hct MPV Lymph % (Auto) 14.7 L Lymph # (Auto) 1.10 L POC Potassium Potassium 5.6 H 5.4 H POC Chloride Chloride Carbon Dioxide POC Total CO2 POC BUN BUN 68 H 59 H Creatinine 3.0 H 3.1 H POC Creatinine Glucose POC Glucose Calcium 7.6 L 7.6 L POC WB Ioniz Calcium Alkaline Phosphatase 122 H 126 H Total Protein 5.5 L 5.7 L Albumin 2.5 L 2.7 L Albumin/Globulin Ratio 0.8 L 0.9 L Methylmalonic Acid 09/11/21 09/10/21 09/10/21 06:24 06:00 06:00 RBC 3.20 L 3.45 L Hgb 9.7 L 10.4 L Hct 30.1 L 33.5 L POC Hct MPV 10.5 H Lymph % (Auto) 12.9 L Lymph # (Auto) 1.19 L 1.05 L POC Potassium Potassium 5.3 H POC Chloride Chloride 110 H Carbon Dioxide 19 L POC Total CO2 POC BUN BUN 49 H Creatinine 2.9 H POC Creatinine Glucose 109 H POC Glucose Calcium 8.1 L POC WB Ioniz Calcium Alkaline Phosphatase 141 H Total Protein Albumin 3.0 L Albumin/Globulin Ratio 0.9 L Methylmalonic Acid 09/09/21 09/08/21 19:02 08:00 RBC Hgb Hct POC Hct 30 L MPV Lymph % (Auto) Lymph # (Auto) POC Potassium 5.3 H Potassium POC Chloride 115 H Chloride Carbon Dioxide POC Total CO2 19 L POC BUN 51 H BUN Creatinine POC Creatinine 3.4 H Glucose POC Glucose 112 H Calcium POC WB Ioniz Calcium 1.10 L Alkaline Phosphatase Total Protein Albumin Albumin/Globulin Ratio Methylmalonic Acid 503 H Meds: Medications Acetaminophen (Acetaminophen 325 Mg Tablet) 650 mg PO Q6HP PRN; Protocol PRN Reason: Per Pain Protocol/Fever > 101 Last Admin: 09/10/21 19:25 Dose: 650 mg Documented by: Albuterol/Ipratropium (Ipratropium/Albuterol 3 Ml Ampul.Neb) 3 ml NEB Q4HP PRN PRN Reason: Shortness Of Breath Amlodipine Besylate (Amlodipine 5 Mg Tablet) 5 mg PO DAILY [facility] Last Admin: 09/12/21 09:12 Dose: 5 mg Documented by: Chlorhexidine Gluconate (Chlorhexidine Gluconate 473 Ml Bottle) 60 ml TOPICAL UD [facility] Chlorhexidine Gluconate (Chlorhexidine Gluconate 1 Ml Oral.Joelle) 15 ml SWABMOUTH BID [facility] Last Admin: 09/12/21 09:12 Dose: 15 ml Documented by: Collagenase (Collagenase Top Oint Tube 30gm) 1 dose TOPICAL DAILY [facility] Last Admin: 09/12/21 09:13 Dose: 1 dose Documented by: Dextrose (Dextrose 50% 50 Ml Vial) 0 ml IV UD PRN PRN Reason: Hypoglycemia Diagnostic Test (Pha) (Accu-Chek 1 Each Strip) 1 each FS AC [facility] Last Admin: 09/12/21 11:38 Dose: 1 each Documented by: Docusate Sodium (Docusate Sodium 100 Mg Capsule) 100 mg PO BID [facility] Last Admin: 09/12/21 09:11 Dose: 100 mg Documented by: Famotidine (Famotidine/Pf 20 Mg/2 Ml Vial) 20 mg IV HS [facility] Last Admin: 09/11/21 21:02 Dose: 20 mg Documented by: Glucose (Dextrose 31 Gm Oral.Susp) 15 gm PO PRN PRN PRN Reason: Hypoglycemia Heparin Sodium (Porcine) (Heparin 5,000 Unit/Ml Vial) 5,000 unit SQ Q12 [facility] Last Admin: 09/12/21 09:11 Dose: 5,000 unit Documented by: Potassium Chloride 40 meq/ (Dextrose) 520 mls @ 130 mls/hr IV UD PRN PRN Reason: Potassium < 3 Magnesium Sulfate (Magnesium Sulfate) 2 gm in 50 mls @ 50 mls/hr IV UD PRN PRN Reason: Magnesium </= 1.6 Sodium Chloride (Sodium Chloride 0.9%) 1,000 mls @ 50 mls/hr IV .Q20H [facility] Last Admin: 09/12/21 07:25 Dose: 50 mls/hr Documented by: Insulin Human Lispro (Insulin Lispro 1 Unit/0.01 Ml Unit) 0 unit SQ [facility]; Protocol Last Admin: 09/12/21 11:38 Dose: Not Given Documented by: Latanoprost (Latanoprost Ophth Drops 2.5ml Bottle) 1 gtt OU QPM [facility] Last Admin: 09/11/21 20:57 Dose: Not Given Documented by: Levothyroxine Sodium (Levothyroxine 50 Mcg Tablet) 50 mcg PO QAMAC [facility] Last Admin: 09/12/21 07:25 Dose: 50 mcg Documented by: Mupirocin (Mupirocin Oint 2% 22gm) 1 dose NARES BID [facility] Last Admin: 09/12/21 09:11 Dose: 1 dose Documented by: Ondansetron HCl (Ondansetron 4 Mg/2 Ml Vial) 4 mg IV Q4HP PRN PRN Reason: Nausea And Vomiting Polyethylene Glycol (Polyethylene Glycol 3350 17 Gm Packet) 17 gm PO DAILYP PRN PRN Reason: Constipation Potassium Chloride (Potassium Chloride 20 Meq Tablet) 40 meq PO UD PRN PRN Reason: Potssium is 3-3.5 Potassium Chloride (Potassium Chloride 20 Meq Tablet) 40 meq PO UD PRN PRN Reason: Potassium < 3 Senna (Sennosides 1 Tablet) 2 tab PO DAILYP PRN PRN Reason: Constipation Sodium Chloride (0.9 % Sodium Chloride 10 Ml Syringe) 10 ml IV Q8 [facility] Last Admin: 09/12/21 12:01 Dose: Not Given Documented by: A/P Assessment and plan (1) Decubitus ulcer of coccyx, stage 2: Status: Acute (2) Acute delirium: Status: Acute (3) Acute hypernatremia: Status: Acute (4) Acute hyperkalemia: Status: Acute (5) Acute UTI: Status: Acute (6) Acute kidney injury with acute tubular necrosis: Status: Acute (7) Bacteremia: Status: Acute Narrative A/P Narrative: A/P Narrative: A: *Dehydration/hyperkalemia/hyperchloremia: *Volume depletion: improving *Non-gap Met Acidosis: *HARRIET on CKD IV: worsening *UTI (GNB): *Encephalopathy: 2/2 above, multifactorial superimposed on underlying dementia -suspect back to baseline *Alzheimer's dementia, advanced: *Anemia(macro), chronic: *HTN: on norvasc *Hypothyroidism: *GERD: *Coccyx, hip, and heel decubitus ulcers *S aureus bacteremia: DDx: skin contaminant P: -Bicarb drip sodium bicarb 100Meq in 1L D5W@50cc/hr -NS@50cc/hr instead of D5LR due to increasing serum potassium level -Lasix 40mg IV once, then repeat serum potassium level @1800 to make sure resolution -serial chemistry -monitor UOP -f/u renal fxn -Rocephin pending UC -cont home norvasc -PT/OT -ppx: Heparin -continue routine wound care -family decided to continue current treatments throughout the weekend. Will retouch base with them on Tuesday to update them on her prognosis and goal of care -repeat blood culture X2 on 09/09, no growth to date DNR Time Spent With Patient Time: Total time spent is greater than 50% in coordination of care (as documented) at patient's floor/unit and/or counseling patient: Total time spent with greater than 50% in coordination of care (as documented) at patient's floor/unit and/or counseling patient:: Greater than 35 minutes QUALITY VTE Deep Vein Thrombosis/Pulmonary Embolism Present on Admission: No
[2021-09-12] MEDS: FAMOTIDINE/PF 20 MG/2 ML VIAL IV SCH (21:11)
[2021-09-12] MEDS: LATANOPROST OPHTH DROPS 2.5ML BOTTLE OU SCH (21:12)
[2021-09-13] MEDS: 0.9 % SODIUM CHLORIDE 1,000 ML IV SCH (03:31)
[2021-09-13] MEDS: 0.9 % SODIUM CHLORIDE 10 ML SYRINGE IV SCH ×3 (04:36→20:35)
[2021-09-13 07:14] LABS: Basophils # (Auto) 0.03 K/mcL (0.00-0.30); Basophils % (Auto) 0.5 % (0.0-2.0); Eosinophils # (Auto) 0.54 K/mcL (0.00-0.70); Eosinophils % (Auto) 8.1 % (0.0-7.0); Hematocrit 30.3 % (34.1-44.9); Hemoglobin 9.3 g/dL (11.2-15.7); Lymphocytes # (Auto) 1.03 K/mcL (1.50-4.80); Lymphocytes % (Auto) 15.5 % (15.5-49.0); Mean Cell Volume 97.4 fL (80.0-100.0); Mean Corpuscular HGB Conc 30.7 g/dL (31.0-36.0); Mean Platelet Volume 9.6 fL (7.4-10.4); Monocytes # (Auto) 0.57 K/mcL (0.10-0.90); Monocytes % (Auto) 8.6 % (1.0-12.0); Neutrophils % (Auto) 67.3 % (38.0-78.0); Platelet Count 257 K/mcL (140-440); RBC 3.11 M/mcL (3.59-5.38); Red Cell Distribution Width 13.9 % (11.5-14.5); WBC 6.7 K/mcL (4.5-11.0)
[2021-09-13 07:36] LABS: ALT/SGPT 15 U/L (<40); AST/SGOT 24 U/L (<32); Albumin 2.7 gm/dL (3.2-5.2); Albumin/Globulin Ratio 0.8 (1.0-2.3); Alkaline Phosphatase 144 U/L (39-117); Bilirubin,Total 0.2 mg/dL (0.1-1.0); Blood Urea Nitrogen 68 mg/dL (8-23); Carbon Dioxide 24 mmol/L (22-30); Chloride 112 mmol/L (96-108); Globulin 3.3 gm/dL (2.2-3.7); Glomerular Filtration Rate 13; Glucose 89 mg/dL (70-105)
[2021-09-13] MEDS: INSULIN LISPRO 1 UNIT/0.01 ML UNIT SQ SCH ×3 (08:51→17:03)
[2021-09-13] MEDS: CHLORHEXIDINE GLUCONATE 1 ML ORAL.SOL SWABMOUTH SCH ×2 (08:52→20:35)
[2021-09-13] MEDS: DOCUSATE SODIUM 100 MG CAPSULE PO SCH ×3 (08:52→20:34)
[2021-09-13] MEDS: MUPIROCIN OINT 2% 22GM NARES SCH ×2 (08:52→20:34)
[2021-09-13] MEDS: HEPARIN 5,000 UNIT/ML VIAL SQ SCH ×2 (08:52→20:34)
[2021-09-13] MEDS: LEVOTHYROXINE 50 MCG TABLET PO SCH (08:52)
[2021-09-13] MEDS: amLODIPine 5 MG TABLET PO SCH (08:52)
--- NOTE | 2021-09-13 12:20 | Internal Med Progress Note ---
SUBJECTIVE Subjective Patient information: Note initiated : 09/13/21 at 12:17 pm Service Date, if different from initiated Date: [] Patient: Marie Pinon 86 y/o F admitted on 09/07/21 for Possible UTI or Septic Hip. Chief Complaint: [] Principal diagnosis: UTI Interval history: History of present illness: Ms. Pinon is a 86 year old F Patient with a history of Alzheimer's dementia advanced brought in from [facility]. History is obtained from chart as unable to gather history from patient given her dementia and current state. She was brought in for decreased level of consciousness over the past few days. In the ED she was worked up she is found to have a sodium of 161 and potassium of 6.2 without any EKG changes. Her very hyperchloremic. BUN is 98 creatinine 4.5. He also was diagnosed with a UTI. Case discussed with school bus monitor regarding her case is stated could be possible that she could need dialysis. This was discussed with family who stated patient is a DNR and that she would not want dialysis. Patient will be treated at [facility] and if she declines her renal function does not improve likely transition to comfort care. 09/08 Sodium coming down appropriately. Mentation improved and that she is alert but pleasantly confused and I suspect at baseline. 09/09 Sodium improving. Although quite a discrepancy between the [id number] sodium in the lab sodium. Patient mentation likely at baseline 09/10: Family, son, has questions regarding prognosis and goal of care. Will conduct bedside care conference with possibility of switching to comfort care only. 09/11: Family decided to continue current treatments over the weekend. Patient remains nonverbal. Ate most of her food with feeding. Serum sodium 137, potassium 5.4. BUN/Cr 49/2.9-->59/3.1. Good urine output with urine output of 950ml over the last 24 hours. 09/12: Serum potassium 5.4-->5.6. Serum Cr level 3.1-->3.0. Patient remains nonverbal. On room air. Ate most of her food with feeding. Family decided to continue curre nt treatments over the weekend. 09/13: Serum potassium 5.6-->4.9. Serum Cr level 3.0-->3.1. Patient remains nonverbal. On room air. Ate most of her food with feeding. Family decided to continue curr ent treatments over the weekend. Pertinent ROS: not obtained due to nonverbal status Constitutional Vitals: Vital Signs Temp Pulse Resp BP Pulse Ox 36.7 C 72 12 144/64 98 09/13/21 08:38 09/13/21 08:38 09/13/21 08:38 09/13/21 08:01 09/13/21 08:38 Period Temp Pulse Resp BP Sys/Tom Pulse Ox Last 24 Hr 36.6 C-37.2 C 69-81 12-18 127-144/52-68 96-98 Intake and Output 09/12/21 09/13/21 09/13/21 21:59 05:59 13:59 Intake Total 700 1000 Output Total 1750 1000 Balance -1050 0 Weight 59.602 kg Intake & Output: Intake & Output 09/12/21 09/13/21 09/13/21 21:59 05:59 13:59 Intake Total 700 1000 Output Total 1750 1000 Balance -1050 0 Weight 59.602 kg Intake: Nourishment/Supplement quantity 200 (ml) IV 1000 Sodium Chloride 0.9% 1,000 ml @ 1000 50 mls/hr IV .Q20H [facility] Rx#: [id number] Oral 500 Output: Urine Catheter Amount 1750 1000 Other: Meal Dinner Percent of Meal Consumed 50% Feeding Ability Total Assistance Nourishment/Supplement name 180 Urine Appearance Clear Clear Uretheral (Enriquez) Clear Urine Color Pale Pale Uretheral (Enriquez) Pale Urine Odor Normal Uretheral (Enriquez) Normal Stool Size Large Stool Consistency Loose General appearance: average body habitus, cooperative, disheveled and no acute distress Exam: altered Head Head exam: Present atraumatic and normal inspection Eye Eye exam: Present normal appearance ENT ENT exam: Present mucous membranes moist, normal exam and normal external ear exam Neck Neck exam: Present normal inspection Respiratory Respiratory exam: Present normal respiratory exam Cardiovascular Cardiovascular exam: Present normal rate and rhythm GI/Abdominal GI/Abdominal exam: Present normal bowel sounds Back Exam Back exam: Present normal inspection Neurological Exam Neurological exam: Present altered; Absent oriented X3 Additional comments: orientation cannot be assessed due to clinical situations Skin Skin exam: Present intact and warm OBJ DATA Labs CBC & Chem 7: 09/13/21 05:20 09/13/21 05:20 Labs: Abnormal Lab Results 09/13/21 09/13/21 09/12/21 05:20 05:20 21:14 RBC 3.11 L Hgb 9.3 L Hct 30.3 L MCHC 30.7 L MPV Lymph % (Auto) Eos % (Auto) 8.1 H Lymph # (Auto) 1.03 L Potassium 5.5 H Chloride 112 H BUN 68 H Creatinine 3.1 H Calcium 8.0 L Alkaline Phosphatase 144 H Total Protein Albumin 2.7 L Albumin/Globulin Ratio 0.8 L Methylmalonic Acid 09/12/21 09/12/21 09/11/21 05:09 05:08 08:00 RBC 3.02 L Hgb 9.2 L Hct 29.1 L MCHC MPV Lymph % (Auto) 14.7 L Eos % (Auto) Lymph # (Auto) 1.10 L Potassium 5.6 H 5.4 H Chloride BUN 68 H 59 H Creatinine 3.0 H 3.1 H Calcium 7.6 L 7.6 L Alkaline Phosphatase 122 H 126 H Total Protein 5.5 L 5.7 L Albumin 2.5 L 2.7 L Albumin/Globulin Ratio 0.8 L 0.9 L Methylmalonic Acid 09/11/21 09/08/21 06:24 08:00 RBC 3.20 L Hgb 9.7 L Hct 30.1 L MCHC MPV 10.5 H Lymph % (Auto) Eos % (Auto) Lymph # (Auto) 1.19 L Potassium Chloride BUN Creatinine Calcium Alkaline Phosphatase Total Protein Albumin Albumin/Globulin Ratio Methylmalonic Acid 503 H Meds: Medications Acetaminophen (Acetaminophen 325 Mg Tablet) 650 mg PO Q6HP PRN; Protocol PRN Reason: Per Pain Protocol/Fever > 101 Last Admin: 09/10/21 19:25 Dose: 650 mg Documented by: Albuterol/Ipratropium (Ipratropium/Albuterol 3 Ml Ampul.Neb) 3 ml NEB Q4HP PRN PRN Reason: Shortness Of Breath Amlodipine Besylate (Amlodipine 5 Mg Tablet) 5 mg PO DAILY [facility] Last Admin: 09/13/21 08:52 Dose: 5 mg Documented by: Chlorhexidine Gluconate (Chlorhexidine Gluconate 473 Ml Bottle) 60 ml TOPICAL UD [facility] Chlorhexidine Gluconate (Chlorhexidine Gluconate 1 Ml Oral.Joelle) 15 ml SWABMOUTH BID [facility] Last Admin: 09/13/21 08:52 Dose: 15 ml Documented by: Collagenase (Collagenase Top Oint Tube 30gm) 1 dose TOPICAL DAILY [facility] Last Admin: 09/12/21 09:13 Dose: 1 dose Documented by: Dextrose (Dextrose 50% 50 Ml Vial) 0 ml IV UD PRN PRN Reason: Hypoglycemia Diagnostic Test (Pha) (Accu-Chek 1 Each Strip) 1 each FS [facility] Last Admin: 09/13/21 08:51 Dose: 1 each Documented by: Docusate Sodium (Docusate Sodium 100 Mg Capsule) 100 mg PO BID [facility] Last Admin: 09/13/21 08:53 Dose: Not Given Documented by: Famotidine (Famotidine/Pf 20 Mg/2 Ml Vial) 20 mg IV HS [facility] Last Admin: 09/12/21 21:11 Dose: 20 mg Documented by: Glucose (Dextrose 31 Gm Oral.Susp) 15 gm PO PRN PRN PRN Reason: Hypoglycemia Heparin Sodium (Porcine) (Heparin 5,000 Unit/Ml Vial) 5,000 unit SQ Q12 [facility] Last Admin: 09/13/21 08:52 Dose: 5,000 unit Documented by: Potassium Chloride 40 meq/ (Dextrose) 520 mls @ 130 mls/hr IV UD PRN PRN Reason: Potassium < 3 Magnesium Sulfate (Magnesium Sulfate) 2 gm in 50 mls @ 50 mls/hr IV UD PRN PRN Reason: Magnesium </= 1.6 Sodium Chloride (Sodium Chloride 0.9%) 1,000 mls @ 50 mls/hr IV .Q20H [facility] Last Admin: 09/13/21 03:31 Dose: 50 mls/hr Documented by: Insulin Human Lispro (Insulin Lispro 1 Unit/0.01 Ml Unit) 0 unit SQ [facility]; Protocol Last Admin: 09/13/21 08:51 Dose: Not Given Documented by: Latanoprost (Latanoprost Ophth Drops 2.5ml Bottle) 1 gtt OU QPM [facility] Last Admin: 09/12/21 21:12 Dose: Not Given Documented by: Levothyroxine Sodium (Levothyroxine 50 Mcg Tablet) 50 mcg PO QAMAC [facility] Last Admin: 09/13/21 08:52 Dose: 50 mcg Documented by: Mupirocin (Mupirocin Oint 2% 22gm) 1 dose NARES BID [facility] Last Admin: 09/13/21 08:52 Dose: 1 dose Documented by: Ondansetron HCl (Ondansetron 4 Mg/2 Ml Vial) 4 mg IV Q4HP PRN PRN Reason: Nausea And Vomiting Polyethylene Glycol (Polyethylene Glycol 3350 17 Gm Packet) 17 gm PO DAILYP PRN PRN Reason: Constipation Potassium Chloride (Potassium Chloride 20 Meq Tablet) 40 meq PO UD PRN PRN Reason: Potssium is 3-3.5 Potassium Chloride (Potassium Chloride 20 Meq Tablet) 40 meq PO UD PRN PRN Reason: Potassium < 3 Senna (Sennosides 1 Tablet) 2 tab PO DAILYP PRN PRN Reason: Constipation Sodium Chloride (0.9 % Sodium Chloride 10 Ml Syringe) 10 ml IV Q8 [facility] Last Admin: 09/13/21 04:36 Dose: Not Given Documented by: A/P Assessment and plan (1) Decubitus ulcer of coccyx, stage 2: Status: Acute (2) Acute delirium: Status: Acute (3) Acute hypernatremia: Status: Acute (4) Acute hyperkalemia: Status: Acute (5) Acute UTI: Status: Acute (6) Acute kidney injury with acute tubular necrosis: Status: Acute (7) Bacteremia: Status: Acute Narrative A/P Narrative: A/P Narrative: A: *Dehydration/hyperkalemia/hyperchloremia: *Volume depletion: improving *Non-gap Met Acidosis: *HARRIET on CKD IV: worsening *UTI (GNB): *Encephalopathy: 2/2 above, multifactorial superimposed on underlying dementia -suspect back to baseline *Alzheimer's dementia, advanced: *Anemia(macro), chronic: *HTN: on norvasc *Hypothyroidism: *GERD: *Coccyx, hip, and heel decubitus ulcers *S aureus bacteremia: DDx: skin contaminant P: -NS@50cc/hr instead of D5LR due to increasing serum potassium level -serial chemistry -monitor UOP -f/u renal fxn -Rocephin pending UC -cont home norvasc -PT/OT -ppx: Heparin -continue routine wound care -family decided to continue current treatments throughout the weekend. Will retouch base with them on Tuesday to update them on her prognosis and goal of care -repeat blood culture X2 on 09/09, no growth to date DNR Time Spent With Patient Time: Total time spent is greater than 50% in coordination of care (as documented) at patient's floor/unit and/or counseling patient: Total time spent with greater than 50% in coordination of care (as documented) at patient's floor/unit and/or counseling patient:: Greater than 35 minutes QUALITY VTE Deep Vein Thrombosis/Pulmonary Embolism Present on Admission: No
[2021-09-13] MEDS: COLLAGENASE TOP OINT TUBE 30GM TOPICAL SCH (15:11)
[2021-09-13] MEDS: FAMOTIDINE/PF 20 MG/2 ML VIAL IV SCH (20:34)
[2021-09-13] MEDS: LATANOPROST OPHTH DROPS 2.5ML BOTTLE OU SCH (20:35)
[2021-09-14] MEDS: 0.9 % SODIUM CHLORIDE 10 ML SYRINGE IV SCH ×3 (05:44→21:15)
[2021-09-14] MEDS: COLLAGENASE TOP OINT TUBE 30GM TOPICAL SCH (06:00)
[2021-09-14 07:14] LABS: Basophils # (Auto) 0.04 K/mcL (0.00-0.30); Basophils % (Auto) 0.4 % (0.0-2.0); Eosinophils # (Auto) 0.49 K/mcL (0.00-0.70); Eosinophils % (Auto) 4.5 % (0.0-7.0); Hematocrit 33.6 % (34.1-44.9); Hemoglobin 10.5 g/dL (11.2-15.7); Lymphocytes # (Auto) 1.26 K/mcL (1.50-4.80); Lymphocytes % (Auto) 11.6 % (15.5-49.0); Mean Cell Volume 97.1 fL (80.0-100.0); Mean Corpuscular HGB Conc 31.3 g/dL (31.0-36.0); Mean Platelet Volume 9.8 fL (7.4-10.4); Monocytes # (Auto) 0.72 K/mcL (0.10-0.90); Monocytes % (Auto) 6.6 % (1.0-12.0); Neutrophils % (Auto) 76.9 % (38.0-78.0); Platelet Count 305 K/mcL (140-440); RBC 3.46 M/mcL (3.59-5.38); Red Cell Distribution Width 14.1 % (11.5-14.5); WBC 10.9 K/mcL (4.5-11.0)
[2021-09-14] MEDS: DOCUSATE SODIUM 100 MG CAPSULE PO SCH ×2 (07:36→21:16)
[2021-09-14] MEDS: INSULIN LISPRO 1 UNIT/0.01 ML UNIT SQ SCH ×3 (08:05→18:02)
[2021-09-14] MEDS: CHLORHEXIDINE GLUCONATE 1 ML ORAL.SOL SWABMOUTH SCH ×2 (08:14→21:15)
[2021-09-14] MEDS: MUPIROCIN OINT 2% 22GM NARES SCH ×2 (08:14→21:15)
[2021-09-14] MEDS: LEVOTHYROXINE 50 MCG TABLET PO SCH (08:14)
[2021-09-14] MEDS: amLODIPine 5 MG TABLET PO SCH (08:14)
[2021-09-14] MEDS: HEPARIN 5,000 UNIT/ML VIAL SQ SCH ×2 (08:14→21:15)
[2021-09-14 08:26] LABS: ALT/SGPT 18 U/L (<40); AST/SGOT 25 U/L (<32); Albumin 3.2 gm/dL (3.2-5.2); Albumin/Globulin Ratio 0.9 (1.0-2.3); Alkaline Phosphatase 156 U/L (39-117); Bilirubin,Total 0.2 mg/dL (0.1-1.0); Blood Urea Nitrogen 71 mg/dL (8-23); Calcium 8.4 mg/dL (8.6-10.4); Carbon Dioxide 25 mmol/L (22-30); Chloride 109 mmol/L (96-108); Globulin 3.4 gm/dL (2.2-3.7); Glomerular Filtration Rate 13; Glucose 100 mg/dL (70-105)
[2021-09-14] MEDS ORDERED: FUROSEMIDE 40 MG TABLET PO ONE (09:00)
--- NOTE | 2021-09-14 09:04 | Internal Med Progress Note ---
SUBJECTIVE Subjective Patient information: Note initiated : 09/14/21 at 9:02 am Service Date, if different from initiated Date: [] Patient: Marie Pinon 86 y/o F admitted on 09/07/21 for Possible UTI or Septic Hip. Chief Complaint: [] Principal diagnosis: UTI Interval history: History of present illness: Ms. Pinon is a 86 year old F Patient with a history of Alzheimer's dementia advanced brought in from [facility]. History is obtained from chart as unable to gather history from patient given her dementia and current state. She was brought in for decreased level of consciousness over the past few days. In the ED she was worked up she is found to have a sodium of 161 and potassium of 6.2 without any EKG changes. Her very hyperchloremic. BUN is 98 creatinine 4.5. He also was diagnosed with a UTI. Case discussed with teenage babysitter regarding her case is stated could be possible that she could need dialysis. This was discussed with family who stated patient is a DNR and that she would not want dialysis. Patient will be treated at [facility] and if she declines her renal function does not improve likely transition to comfort care. 09/08 Sodium coming down appropriately. Mentation improved and that she is alert but pleasantly confused and I suspect at baseline. 09/09 Sodium improving. Although quite a discrepancy between the [id number] sodium in the lab sodium. Patient mentation likely at baseline 09/10: Family, son, has questions regarding prognosis and goal of care. Will conduct bedside care conference with possibility of switching to comfort care only. 09/11: Family decided to continue current treatments over the weekend. Patient remains nonverbal. Ate most of her food with feeding. Serum sodium 137, potassium 5.4. BUN/Cr 49/2.9-->59/3.1. Good urine output with urine output of 950ml over the last 24 hours. 09/12: Serum potassium 5.4-->5.6. Serum Cr level 3.1-->3.0. Patient remains nonverbal. On room air. Ate most of her food with feeding. Family decided to continue current treatments over the weekend. 09/13: Serum potassium 5.6-->4.9. Serum Cr level 3.0-->3.1. Patient remains nonverbal. On room air. Ate most of her food with feeding. Family decided to continue curre nt treatments over the weekend. 09/14: Serum potassium 4.9-->5.9. Serum Cr level 3.1-->3.0. Patient remains nonverbal. On room air. Ate most of her food with feeding. Will touch base with family aga in today regarding poor prognosis and goal of care. Constitutional Vitals: Vital Signs Temp Pulse Resp BP Pulse Ox 36.4 C 146 H 16 128/76 96 09/14/21 08:50 09/14/21 08:50 09/14/21 08:50 09/14/21 08:50 09/14/21 08:50 Period Temp Pulse Resp BP Sys/Tom Pulse Ox Last 24 Hr 36.2 C-37.7 C 73-146 11-17 110-149/57-76 93-100 Intake and Output 09/13/21 09/14/21 09/14/21 21:59 05:59 13:59 Intake Total 2234 300 Output Total 900 375 Balance 1334 -75 Weight 47.038 kg Intake & Output: Intake & Output 09/13/21 09/14/21 09/14/21 21:59 05:59 13:59 Intake Total 2234 300 Output Total 900 375 Balance 1334 -75 Weight 47.038 kg Intake: Nourishment/Supplement quantity 480 (ml) IV 674 Sodium Chloride 0.9% 1,000 ml @ 674 50 mls/hr IV .Q20H [facility] Rx#: [id number] Oral 1080 300 Output: Urine Catheter Amount 900 375 Other: Meal Dinner Percent of Meal Consumed 100% Feeding Ability Total Assistance Nourishment/Supplement name Ensure plus X2 Urine Appearance Clear Clear Clear Uretheral (Enriquez) Clear Urine Color Pale Pale Pale Bright Yellow Uretheral (Enriquez) Pale Stool Size Small Stool Color Brown Stool Consistency Loose General appearance: disheveled and thin Exam: altered Head Head exam: Present atraumatic and normal inspection Eye Eye exam: Present normal appearance ENT ENT exam: Present mucous membranes moist, normal exam and normal external ear exam Neck Neck exam: Present normal inspection Respiratory Respiratory exam: Present normal respiratory exam Cardiovascular Cardiovascular exam: Present normal rate and rhythm GI/Abdominal GI/Abdominal exam: Present normal bowel sounds Back Exam Back exam: Present normal inspection Neurological Exam Neurological exam: Present alert and altered; Absent oriented X3 Additional comments: orientation cannot be assessed due to nonverbal status Skin Skin exam: Present intact and warm OBJ DATA Labs CBC & Chem 7: 09/14/21 05:05 09/14/21 05:05 Labs: Abnormal Lab Results 09/14/21 09/14/21 09/13/21 05:05 05:05 05:20 RBC 3.46 L Hgb 10.5 L Hct 33.6 L MCHC Lymph % (Auto) 11.6 L Eos % (Auto) Lymph # (Auto) 1.26 L Absolute Neutrophils 8.38 H Potassium 5.9 H* Chloride 109 H 112 H BUN 71 H 68 H Creatinine 3.0 H 3.1 H Calcium 8.4 L 8.0 L Alkaline Phosphatase 156 H 144 H Total Protein Albumin 2.7 L Albumin/Globulin Ratio 0.9 L 0.8 L Methylmalonic Acid 09/13/21 09/12/21 09/12/21 05:20 21:14 05:09 RBC 3.11 L 3.02 L Hgb 9.3 L 9.2 L Hct 30.3 L 29.1 L MCHC 30.7 L Lymph % (Auto) 14.7 L Eos % (Auto) 8.1 H Lymph # (Auto) 1.03 L 1.10 L Absolute Neutrophils Potassium 5.5 H Chloride BUN Creatinine Calcium Alkaline Phosphatase Total Protein Albumin Albumin/Globulin Ratio Methylmalonic Acid 09/12/21 09/11/21 09/08/21 05:08 08:00 08:00 RBC Hgb Hct MCHC Lymph % (Auto) Eos % (Auto) Lymph # (Auto) Absolute Neutrophils Potassium 5.6 H 5.4 H Chloride BUN 68 H 59 H Creatinine 3.0 H 3.1 H Calcium 7.6 L 7.6 L Alkaline Phosphatase 122 H 126 H Total Protein 5.5 L 5.7 L Albumin 2.5 L 2.7 L Albumin/Globulin Ratio 0.8 L 0.9 L Methylmalonic Acid 503 H Meds: Medications Acetaminophen (Acetaminophen 325 Mg Tablet) 650 mg PO Q6HP PRN; Protocol PRN Reason: Per Pain Protocol/Fever > 101 Last Admin: 09/10/21 19:25 Dose: 650 mg Documented by: Albuterol/Ipratropium (Ipratropium/Albuterol 3 Ml Ampul.Neb) 3 ml NEB Q4HP PRN PRN Reason: Shortness Of Breath Amlodipine Besylate (Amlodipine 5 Mg Tablet) 5 mg PO DAILY [facility] Last Admin: 09/14/21 08:14 Dose: 5 mg Documented by: Chlorhexidine Gluconate (Chlorhexidine Gluconate 473 Ml Bottle) 60 ml TOPICAL UD [facility] Chlorhexidine Gluconate (Chlorhexidine Gluconate 1 Ml Oral.Joelle) 15 ml SWABMOUTH BID [facility] Last Admin: 09/14/21 08:14 Dose: 15 ml Documented by: Collagenase (Collagenase Top Oint Tube 30gm) 1 dose TOPICAL DAILY [facility] Last Admin: 09/14/21 06:00 Dose: 1 dose Documented by: Dextrose (Dextrose 50% 50 Ml Vial) 0 ml IV UD PRN PRN Reason: Hypoglycemia Diagnostic Test (Pha) (Accu-Chek 1 Each Strip) 1 each FS [facility] Last Admin: 09/14/21 08:05 Dose: 1 each Documented by: Docusate Sodium (Docusate Sodium 100 Mg Capsule) 100 mg PO BID [facility] Last Admin: 09/14/21 07:36 Dose: Not Given Documented by: Famotidine (Famotidine/Pf 20 Mg/2 Ml Vial) 20 mg IV HS [facility] Last Admin: 09/13/21 20:34 Dose: Not Given Documented by: Furosemide (Furosemide 40 Mg Tablet) 40 mg PO ONCE ONE Stop: 09/14/21 09:01 Glucose (Dextrose 31 Gm Oral.Susp) 15 gm PO PRN PRN PRN Reason: Hypoglycemia Heparin Sodium (Porcine) (Heparin 5,000 Unit/Ml Vial) 5,000 unit SQ Q12 [facility] Last Admin: 09/14/21 08:14 Dose: 5,000 unit Documented by: Potassium Chloride 40 meq/ (Dextrose) 520 mls @ 130 mls/hr IV UD PRN PRN Reason: Potassium < 3 Magnesium Sulfate (Magnesium Sulfate) 2 gm in 50 mls @ 50 mls/hr IV UD PRN PRN Reason: Magnesium </= 1.6 Insulin Human Lispro (Insulin Lispro 1 Unit/0.01 Ml Unit) 0 unit SQ [facility]; Protocol Last Admin: 09/14/21 08:05 Dose: Not Given Documented by: Latanoprost (Latanoprost Ophth Drops 2.5ml Bottle) 1 gtt OU QPM [facility] Last Admin: 09/13/21 20:35 Dose: Not Given Documented by: Levothyroxine Sodium (Levothyroxine 50 Mcg Tablet) 50 mcg PO QAMAC [facility] Last Admin: 09/14/21 08:14 Dose: 50 mcg Documented by: Mupirocin (Mupirocin Oint 2% 22gm) 1 dose NARES BID [facility] Last Admin: 09/14/21 08:14 Dose: 1 dose Documented by: Ondansetron HCl (Ondansetron 4 Mg/2 Ml Vial) 4 mg IV Q4HP PRN PRN Reason: Nausea And Vomiting Polyethylene Glycol (Polyethylene Glycol 3350 17 Gm Packet) 17 gm PO DAILYP PRN PRN Reason: Constipation Potassium Chloride (Potassium Chloride 20 Meq Tablet) 40 meq PO UD PRN PRN Reason: Potssium is 3-3.5 Potassium Chloride (Potassium Chloride 20 Meq Tablet) 40 meq PO UD PRN PRN Reason: Potassium < 3 Senna (Sennosides 1 Tablet) 2 tab PO DAILYP PRN PRN Reason: Constipation Sodium Chloride (0.9 % Sodium Chloride 10 Ml Syringe) 10 ml IV Q8 [facility] Last Admin: 09/14/21 05:44 Dose: Not Given Documented by: A/P Assessment and plan (1) Decubitus ulcer of coccyx, stage 2: Status: Acute (2) Acute delirium: Status: Acute (3) Acute hypernatremia: Status: Acute (4) Acute hyperkalemia: Status: Acute (5) Acute UTI: Status: Acute (6) Acute kidney injury with acute tubular necrosis: Status: Acute (7) Bacteremia: Status: Acute Narrative A/P Narrative: A/P Narrative: A: *Dehydration/hyperkalemia/hyperchloremia: *Volume depletion: improving *Non-gap Met Acidosis: *HARRIET on CKD IV: worsening *UTI (GNB): *Encephalopathy: 2/2 above, multifactorial superimposed on underlying dementia -suspect back to baseline *Alzheimer's dementia, advanced: *Anemia(macro), chronic: *HTN: on norvasc *Hypothyroidism: *GERD: *Coccyx, hip, and heel decubitus ulcers *S aureus bacteremia: DDx: skin contaminant, repeat blood culture no growth to date *E coli UTI: finished Rocephin P: -NS@50cc/hr instead of D5LR due to increasing serum potassium level -Lasix 40mg PO once -serial chemistry -monitor UOP -f/u renal fxn -Finished Rocephin for E coli UTI -cont home norvasc -PT/OT -ppx: Heparin -continue routine wound care -family decided to continue current treatments throughout the weekend. Will retouch base with them today to update them on her prognosis and goal of care -repeat blood culture X2 on 09/09, no growth to date DNR Time Spent With Patient Time: Total time spent is greater than 50% in coordination of care (as documented) at patient's floor/unit and/or counseling patient: Total time spent with greater than 50% in coordination of care (as documented) at patient's floor/unit and/or counseling patient:: Greater than 35 minutes QUALITY VTE Deep Vein Thrombosis/Pulmonary Embolism Present on Admission: No
[2021-09-14] MEDS ORDERED: FAMOTIDINE 20 MG TABLET PO SCH (21:00)
[2021-09-14] MEDS: LATANOPROST OPHTH DROPS 2.5ML BOTTLE OU SCH (21:15)
[2021-09-15] MEDS: 0.9 % SODIUM CHLORIDE 10 ML SYRINGE IV SCH (05:49)
[2021-09-15 07:00] LABS: Basophils # (Auto) 0.02 K/mcL (0.00-0.30); Basophils % (Auto) 0.2 % (0.0-2.0); Eosinophils # (Auto) 0.51 K/mcL (0.00-0.70); Eosinophils % (Auto) 5.8 % (0.0-7.0); Lymphocytes # (Auto) 1.48 K/mcL (1.50-4.80); Lymphocytes % (Auto) 16.8 % (15.5-49.0); Mean Platelet Volume 9.6 fL (7.4-10.4); Monocytes # (Auto) 0.67 K/mcL (0.10-0.90); Monocytes % (Auto) 7.6 % (1.0-12.0); Neutrophils % (Auto) 69.6 % (38.0-78.0); Platelet Count 277 K/mcL (140-440); RBC 2.96 M/mcL (3.59-5.38); Red Cell Distribution Width 14.2 % (11.5-14.5); WBC 8.8 K/mcL (4.5-11.0)
[2021-09-15 07:35] LABS: ALT/SGPT 15 U/L (<40); AST/SGOT 22 U/L (<32); Albumin 2.8 gm/dL (3.2-5.2); Albumin/Globulin Ratio 0.9 (1.0-2.3); Alkaline Phosphatase 131 U/L (39-117); Bilirubin,Total 0.2 mg/dL (0.1-1.0); Blood Urea Nitrogen 72 mg/dL (8-23); Calcium 8.2 mg/dL (8.6-10.4); Carbon Dioxide 22 mmol/L (22-30); Chloride 112 mmol/L (96-108); Globulin 3.2 gm/dL (2.2-3.7); Glomerular Filtration Rate 13; Glucose 93 mg/dL (70-105)
[2021-09-15] MEDS: DOCUSATE SODIUM 100 MG CAPSULE PO SCH (09:13)
[2021-09-15] MEDS: INSULIN LISPRO 1 UNIT/0.01 ML UNIT SQ SCH ×2 (09:13→12:04)
[2021-09-15] MEDS: MUPIROCIN OINT 2% 22GM NARES SCH (09:20)
[2021-09-15] MEDS: HEPARIN 5,000 UNIT/ML VIAL SQ SCH (09:20)
[2021-09-15] MEDS: ACETAMINOPHEN 325 MG TABLET PO PRN (09:20)
[2021-09-15] MEDS: amLODIPine 5 MG TABLET PO SCH (09:20)
[2021-09-15] MEDS: LEVOTHYROXINE 50 MCG TABLET PO SCH (09:20)
--- NOTE | 2021-09-15 10:32 | Discharge Summary ---
Discharge Provider Provider Patient information: Note initiated : 09/15/21 at 10:28 am Service Date, if different from initiated Date: [] Patient: Marie Pinon 86 y/o F admitted on 09/07/21 for Possible UTI or Septic Hip. Chief Complaint: [] Date of admission: 09/07/21 15:22 Discharge date: 09/15/21 Primary care physician: Gianluca Rivera Attending physician on admission: Cleveland Ramírez Consults: 09/07/21 Consult to Physician [CONS] Stat Comment: Consulting Provider: Cleveland Ramírez Reason For Exam: Physician to Consult 09/07/21 11:24 Consult to Physician [CONS] Stat Comment: Consulting Provider: Miki Pinzon Reason For Exam: Physician to Consult 09/09/21 09:44 Consult to Physician [CONS] Routine Comment: Consulting Provider: Tom Jackson Reason For Exam: unstageable pressure injury to left hip 09/09/21 15:36 Consult to Physician [CONS] Routine Comment: snf referral Consulting Provider: [facility] Reason For Exam: Physician to Consult Attending physician on discharge: Francesco Myers Pui Discharge Meds Discharge Medications Home Medications acetaminophen 325 mg tablet 650 mg PO Q4HP PRN 09/07/21 [History Confirmed 09/07/21 Last Taken Unknown] amlodipine 5 mg tablet 5 mg PO QDAY 09/07/21 [History Confirmed 09/07/21 Last Taken Unknown] ascorbic acid (vitamin C) 500 mg tablet 500 mg PO BID 09/07/21 [History Confi rmed 09/07/21 Last Taken Unknown] bisacodyl 10 mg rectal suppository 10 mg TN QDAY PRN 09/07/21 [History Confirmed 09/07/21 Last Taken Unknown] cranberry fruit 450 mg tablet (cranberry) 450 mg PO BID 09/07/21 [History Confirmed 09/07/21 Last Taken Unknown] dicyclomine 20 mg tablet 20 mg PO BID 09/07/21 [History Confirmed 09/07/21 Last Taken Unknown] diphenhydramine-zinc acetate 2 %-0.1 % topical solution 1 applic TOPICAL BIDP PRN 09/07/21 [History Confirmed 09/07/21 Last Taken Unknown] famotidine 20 mg tablet 20 mg PO QDAY 09/07/21 [History Confirmed 09/07/21 Last Taken Unknown] ferrous sulfate 325 mg (65 mg iron) tablet 325 mg PO TID 09/07/21 [History Confirmed 09/07/21 Last Taken Unknown] galantamine 4 mg tablet 4 mg PO DAILY 09/07/21 [History Confirmed 09/07/21 Last Taken Unknown] hydroxyzine HCl 25 mg tablet 25 mg PO BID 09/07/21 [History Confirmed 09/07/21 Last Taken Unknown] latanoprost 0.005 % eye drops 1 drp OPHTHALMIC (EYE) QPM 09/07/21 [History Confirmed 09/07/21 Last Taken Unknown] levothyroxine 50 mcg tablet 50 mcg PO QDAY 09/07/21 [History Confirmed 09/07/21 Last Taken Unknown] miconazole nitrate 2 % topical powder 1 applic TOPICAL HS 09/07/21 [History Confirmed 09/07/21 Last Taken Unknown] multivitamin with minerals-folic acid 0.4 mg tablet 1 tab PO DAILY 09/07/21 [History Confirmed 09/07/21 Last Taken Unknown] sodium phosphates 19 gram-7 gram/118 mL enema (Enema) 118 ml TN ONCE PRN 09/07/21 [History Confirmed 09/07/21 Last Taken Unknown] zinc sulfate 50 mg zinc (220 mg) tablet 50 mg PO DAILY 09/07/21 [History Confirmed 09/07/21 Last Taken Unknown] potassium chloride 20 mEq tablet,extended release 20 meq PO QDAY #7 tab 09/15/21 [Rx Last Taken Unknown] tizanidine 4 mg tablet 4 mg PO QHS PRN #7 tab 09/15/21 [Rx Last Taken Unknown] COURSE Hospital Course Hospital course: Ms. Pinon is a 86 year old F Patient with a history of Alzheimer's dementia advanced brought in from [facility]. History is obtained from chart as unable to gather history from patient given her dementia and current state. She was brought in for decreased level of consciousness over the past few days. In the ED she was worked up she is found to have a sodium of 161 and potassium of 6.2 without any EKG changes. Her very hyperchloremic. BUN is 98 creatinine 4.5. He also was diagnosed with a UTI. Case discussed with senior sas developer regarding her case is stated could be possible that she could need dialysis. This was discussed with family who stated patient is a DNR and that she would not want dialysis. Patient will be treated at [facility] and if she declines her renal function does not improve likely transition to comfort care. 09/08 Sodium coming down appropriately. Mentation improved and that she is alert but pleasantly confused and I suspect at baseline. 09/09 Sodium improving. Although quite a discrepancy between the [id number] sodium in the lab sodium. Patient mentation likely at baseline 09/10: Family, son, has questions regarding prognosis and goal of care. Will conduct bedside care conference with possibility of switching to comfort care only. 09/11: Family decided to continue current treatments over the weekend. Patient remains nonverbal. Ate most of her food with feeding. Serum sodium 137, potassium 5.4. BUN/Cr 49/2.9-->59/3.1. Good urine output with urine output of 950ml over the last 24 hours. 09/12: Serum potassium 5.4-->5.6. Serum Cr level 3.1-->3.0. Patient remains nonverbal. On room air. Ate most of her food with feeding. Family decided to continue current treatments over the weekend. 09/13: Serum potassium 5.6-->4.9. Serum Cr level 3.0-->3.1. Patient remains nonverbal. On room air. Ate most of her food with feeding. Family decided to continue current treatments over the weekend. 09/14: Serum potassium 4.9-->5.9. Serum Cr level 3.1-->3.0. Patient remains nonverbal. On room air. Ate most of her food with feeding. Will touch base with family again today regarding poor prognosis and goal of care. 09/15: Discharged to SNF. Pending goal of care decision by deisi. Discharge diagnosis: E coli UTI Time Spent with Patient Time attestation: Total time spent providing and/or coordinating discharge services: Time spent: Less than 30 minutes EXAM Constitutional Vitals: Temp Pulse Resp BP Pulse Ox 37.3 C H 82 20 121/69 92 09/15/21 08:07 09/15/21 08:07 09/15/21 08:07 09/15/21 08:01 09/15/21 08:07 General appearance: cooperative and no acute distress Head Head exam: Present atraumatic and normocephalic Eye Eye exam: Present EOMI and PERRL ENT ENT exam: Present mucous membranes moist, normal exam and normal external ear exam Neck Neck exam: Present normal inspection; Absent lymphadenopathy, tenderness or thyromegaly Respiratory Respiratory exam: Absent accessory muscle use, respiratory distress or wheezes Cardiovascular Cardiovascular exam: Present normal rate and rhythm; Absent JVD GI/Abdominal GI/Abdominal exam: Present normal bowel sounds and soft; Absent organomegaly or tenderness Additional comments: Enriquez caheter in place Extremities Exam Extremities exam: Present full ROM, normal capillary refill and normal inspection; Absent tenderness Neurological Exam Neurological exam: Present alert, altered and CN II-XII intact; Absent motor sensory deficit or oriented X3 Additional comments: orientation cannot be assessed due to clinical situations Psychiatric Psychiatric exam: Present normal affect and normal mood; Absent anxious or depressed Skin Skin exam: Present dry and intact Discharge Data Data Completed and Pending Labs on day of discharge: Labs from last 24 hours 09/15/21 09/15/21 09/14/21 05:33 05:33 16:38 WBC 8.8 RBC 2.96 L Hgb 9.0 L Hct 29.0 L MCV 98.0 MCH 30.4 MCHC 31.0 RDW 14.2 Plt Count 277 MPV 9.6 Neut % (Auto) 69.6 Lymph % (Auto) 16.8 Archer % (Auto) 7.6 Eos % (Auto) 5.8 Baso % (Auto) 0.2 Lymph # (Auto) 1.48 L Archer # (Auto) 0.67 Eos # (Auto) 0.51 Baso # (Auto) 0.02 Absolute Neutrophils 6.13 Sodium 144 Potassium 5.6 H 5.3 H Chloride 112 H Carbon Dioxide 22 Anion Gap 10.0 BUN 72 H Creatinine 3.1 H GFR Calculation 13 Glucose 93 Calcium 8.2 L Total Bilirubin 0.2 AST 22 ALT 15 Alkaline Phosphatase 131 H Total Protein 6.0 Albumin 2.8 L Globulin 3.2 Albumin/Globulin Ratio 0.9 L 09/14/21 15:13 WBC RBC Hgb Hct MCV MCH MCHC RDW Plt Count MPV Neut % (Auto) Lymph % (Auto) Archer % (Auto) Eos % (Auto) Baso % (Auto) Lymph # (Auto) Archer # (Auto) Eos # (Auto) Baso # (Auto) Absolute Neutrophils Sodium Potassium 5.1 Chloride Carbon Dioxide Anion Gap BUN Creatinine GFR Calculation Glucose Calcium Total Bilirubin AST ALT Alkaline Phosphatase Total Protein Albumin Globulin Albumin/Globulin Ratio Discharge Plan Patient/Caregiver Discharge Instructions Activity: increase activity as tolerated Diet: Dysphagia Level 4 Pureed Foods Prescriptions: New potassium chloride 20 mEq tablet extended release 20 meq PO QDAY Qty: 7 0RF tizanidine 4 mg tablet 4 mg PO QHS PRN (Reason: muscle spasticity) Qty: 7 0RF Continued latanoprost 0.005 % Drops 1 drp OPHTHALMIC (EYE) QPM 0RF Rx Instructions: In BOTH eyes @ bedtime acetaminophen 325 mg Tablet 650 mg PO Q4HP PRN (Reason: Pain) 0RF miconazole nitrate 2 % Powder 1 applic TOPICAL HS 0RF Rx Instructions: APPLY TO SIDES & FRANCESCA AREA TOPICALLY EVERY NIGHT galantamine 4 mg Tablet 4 mg PO DAILY 0RF amlodipine 5 mg Tablet 5 mg PO QDAY 0RF Rx Instructions: HOLD FOR BP < 100/50 OR HR < 55 zinc sulfate 50 mg zinc (220 mg) Tablet 50 mg PO DAILY 0RF famotidine 20 mg Tablet 20 mg PO QDAY 0RF ascorbic acid (vitamin C) 500 mg Tablet 500 mg PO BID 0RF dicyclomine 20 mg Tablet 20 mg PO BID 0RF levothyroxine 50 mcg Tablet 50 mcg PO QDAY 0RF bisacodyl 10 mg Suppository 10 mg TN QDAY PRN (Reason: Constipation) 0RF ferrous sulfate 325 mg (65 mg iron) Tablet 325 mg PO TID 0RF Enema 19-7 gram/118 mL Enema 118 ml TN ONCE PRN (Reason: Constipation) 0RF hydroxyzine HCl 25 mg Tablet 25 mg PO BID 0RF diphenhydramine-zinc acetate 2-0.1 % Solution 1 applic TOPICAL BIDP PRN (Reason: Itching) 0RF Rx Instructions: APPLY A SMALL AMOUNT TO SKIN AREA THAT ITCHES TWICE DAILY NEEDED multivit with min-folic acid 0.4 mg Tablet 1 tab PO DAILY 0RF cranberry 450 mg Tablet 450 mg PO BID 0RF Rx Instructions: administer with a meal Follow Up Plan Follow up with: Gianluca Rivera [Primary Care Provider] - Patient Disposition: Xfer SNF Prognosis: Serious Rehab Potential: Serious I certify that the patient requires SNF services: Yes Overall status at discharge: patient is progressing back to baseline Discharge Orders: Discharge Order (Routine); Ordered 09/15/21 Ordered By: Francesco LAM VTE Deep Vein Thrombosis/Pulmonary Embolism Present on Admission: No
[2021-09-15] MEDS: COLLAGENASE TOP OINT TUBE 30GM TOPICAL SCH (11:14)
[2021-09-15] MEDS: CHLORHEXIDINE GLUCONATE 1 ML ORAL.SOL SWABMOUTH SCH (12:03)
== END 2021-09-15 13:24 | DRG 682 ==
LOC: ED 07:50 → ICU 15:22
PROVIDERS: ADMIT Internal Medicine; ATTEND Internal Medicine